=== PATIENT | male | born 1965 | race Caucasian/White ===

== ENCOUNTER 2016-12-10 21:43 | Inpatient (IN) | payer OTHER ==
[~2016-12-10] VITALS: Ht 180.3 cm; Wt 97.5 kg
[~2016-12-10 21:43] MED LIST: AMLODIPINE BESY10 M1 PO; DEPAKENE250 MG PO; DIOVAN320 M1 PO; DIVALPROEX SOD500 M3 PO; FOLIC ACID1 M1 PO; GABAPENTIN400 M2 PO; HYDROCHLOROTHIA50 M1 PO; METFORMIN HCL850 M1 PO; METOPROLOL SUCC50 M2 PO; OMEPRAZOLE20 M2 PO; ONE DAILY MULT1 EAC2 PO; RISPERDAL1 M1 PO; TRAZODONE HCL100 M1 PO; VALPROIC A250 MG/53 PO; VITAMIN B-1100 MG PO
--- NOTE | 2016-12-10 21:54 | ED GENERAL ADULT ---
History of Present Illness General Chief Complaint: ETOH/Drug Related Complaint Stated Complaint: WANTS DETOX, 7 HRS SINCE LAST DRINK ?SIZURE Source: patient, old records Exam Limitations: no limitations Vital Signs & Intake/Output Vital Signs & Intake/Output Vital Signs Date Time Temp Pulse Resp B/P B/P Pulse O2 O2 Flow FiO2 Mean Ox Delivery Rate 12/11 1717 94 140/82 12/11 1434 98.2 92 20 132/70 94 Room Air 12/11 1322 97.4 96 16 118/70 12/11 1322 97.4 86 16 118/70 98 Room Air 12/11 1148 97.1 74 18 129/78 98 Room Air 12/11 1147 97.1 74 18 129/78 12/11 1022 97.9 62 18 122/70 98 Room Air 12/11 1021 97.9 64 16 122/70 12/11 0922 98.3 66 18 125/87 12/11 0922 98.3 66 18 125/87 98 Room Air 12/11 0807 97.9 82 16 123/80 98 Room Air 12/11 0805 97.9 82 16 123/80 12/11 0717 98.0 78 18 119/90 98 Room Air 12/11 0716 98.1 78 16 119/90 12/11 0523 96.8 60 16 110/67 12/11 0523 96.8 60 16 110/67 97 Room Air 12/11 0325 98.0 63 16 121/78 12/11 0325 98.0 63 16 121/78 98 Room Air 12/11 0125 98.2 81 18 111/73 12/11 0125 98.2 81 18 111/73 96 Room Air 12/10 2315 98.0 74 19 112/65 12/10 2306 98.0 74 19 112/65 95 Room Air 12/10 2232 97.9 77 18 126/74 ED Intake and Output 12/11 0000 12/10 1200 Intake Total Output Total Balance Patient 215 lb Weight Weight Reported by Patient Measurement Method Triage Note: PT TO ED REQUESTING ETOH DETOX AND COCAINE. 'I GOTTA STOP EVERYTHING" STATES WAS SOBER FOR 9 1/2 MONTHS, RELAPSED 2 WEEKS AGO. "I DRINK AT LEAST 2-3 PINTS OF VODKA A DAY" ADMITS TO SMOKING COCAINE TODAY. 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 PMH OF ETOH WITHDRAWAL SEIZURES "I THINK I HAD A SEIZURE AT HOME" Triage Nurses Notes Reviewed? yes HPI: Patient presents to the emergency department requesting detox from alcohol. Patient states that he was sober for 9 and half months before he relapsed 2 weeks ago. Patient has been drinking a fifth a day. Patient has a history of a wall withdrawal seizures. Patient is unsure if he had a seizure earlier today. Patient states that he was drinking but then woke up on the living room floor and he had bit his lip. Patient's last drink was approximately 7 hours ago. Patient also used cocaine this afternoon. Patient states that he feels very jittery. He feels slightly nauseous. He denies any chest pain or shortness of breath. He denies any suicidal or homicidal ideations. (TATIANNA HERNÁNDEZ,CELESTE Becker) Allergies Coded Allergies: haloperidol (From HALDOL) (Severe, ANGIODEMA 12/10/16) olanzapine (From ZYPREXA) (Severe, ANGIODEMA 12/10/16) Reconcile Medications Amlodipine Besylate 10 MG TABLET 1 TAB PO DAILY HEART/BP (Reported) Hydrochlorothiazide 50 MG TABLET 1 TAB PO DAILY BP (Reported) Metformin HCl 850 MG TABLET 1 TAB PO DAILY DIABETES (Reported) Metoprolol Succinate 50 MG TAB.ER.24H 1 TAB PO DAILY BP (Reported) Valproic Acid (Depakene) 250 MG CAPSULE 3 TAB PO TID mental health Valsartan (Diovan) 320 MG TABLET 1 TAB PO DAILY BP (Reported) (ALFONSO HERNÁNDEZ,SAEED) Past History Travel History Traveled to [place] past 21 day No Medical History Any Pertinent Medical History? 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 No (TATIANNA HERNÁNDEZ,CELESTE Becker) Review of Systems Review of Systems Constitutional: Reports: see HPI. EENTM: Reports: no symptoms. Respiratory: Reports: no symptoms. Cardiovascular: Reports: no symptoms. GI: Reports: see HPI. Genitourinary: Reports: no symptoms. Musculoskeletal: Reports: see HPI. Skin: Reports: no symptoms. Neurological/Psychological: Reports: no symptoms. Hematologic/Endocrine: Reports: no symptoms. Immunologic/Allergic: Reports: no symptoms. All Other Systems: Reviewed and Negative (TATIANNA HERNÁNDEZ,CELESTE Becker) Physical Exam Physical Exam General Appearance: well developed/nourished, alert, awake, anxious, moderate distress Head: atraumatic, normal appearance Eyes: Bilateral: PERRL, EOMI. Ears, Nose, Throat: normal pharynx, normal ENT inspection, hearing grossly normal Neck: normal inspection, supple, full range of motion Respiratory: normal breath sounds, chest non-tender, no respiratory distress, lungs clear Cardiovascular: regular rate/rhythm, normal peripheral pulses Gastrointestinal: normal bowel sounds, soft, non-tender Back: normal inspection, normal range of motion Extremities: normal inspection, normal capillary refill, normal range of motion, no edema Neurologic/Psych: no motor/sensory deficits, awake, alert, oriented x 3, normal gait, normal mood/affect Skin: intact, normal color, ecchymosis Lymphatic: no anterior cervical deborah Core Measures ACS in differential dx? No CVA/TIA Diagnosis: No Severe Sepsis Present: No Septic Shock Present: No (TATIANNA HERNÁNDEZ,CELESTE Becker) Progress Differential Diagnoses I considered the following diagnoses in my evaluation of the patient: [Alcohol withdrawal, alcohol dependency] Plan of Care: Orders Procedure Date/time Status PHOSPHORUS 12/12 06 Active MAGNESIUM 12/12 06 Active HEPATIC FUNCTION PANEL 12/12 06 Active BASIC ELECTROLYTES PLUS BUN&CR 12/12 599 Active Heart Healthy Diet 12/11 D Active Regular Diet 12/11 B Complete Teach/Educate 12/11 143 Active Pain Treatment and Response 12/11 143 Active Nutritional Intake, Monitor 12/11 1436 Active Isolation 12/11 1436 Active Patient Care Conference 12/11 1436 Active Activity/Ambulation 12/11 1436 Active TROPONIN LEVEL 12/11 1259 Complete EKG 12/11 1259 Active FingerStick- Glucose 12/11 1244 Active Pathway - chart 12/11 1218 Active Pathway - chart 12/11 1216 Active EKG 12/11 1145 Active Patient Data 12/11 1142 Active Misc Message 12/11 1136 Active ED Holding Orders 12/11 1136 Active Admit to inpatient 12/11 1136 Active Vital Signs 12/11 1136 Active Code Status 12/11 1136 Active Add-on Test (ER Only) 12/11 0911 Active House Staff 12/11 UNK Active VTE Mechanical Prophylaxis 12/11 UNK Active Seizure Precautions 12/11 UNK Active Precautions 12/11 UNK Active SOCIAL WORK CONSULT 12/11 UNK Active Add-on Test (ER Only) 12/10 2330 Active Intake & Output 12/10 2212 Active PROLACTIN 12/10 220 Complete LIPASE 12/10 2204 Complete DEPAKOTE LEVEL 12/10 2204 Complete AMYLASE 12/10 2204 Complete Current Medications Sig/Joaquin Start time Last Medication Dose Stop Time Status Admin Amlodipine Besylate 10 MG DAILY 12/12 1000 AC (Norvasc) Enoxaparin Sodium 40 MG DAILY 12/12 1000 AC (Lovenox) Hydrochlorothiazide 50 MG DAILY 12/12 1000 AC (Hydrodiuril) Losartan Potassium 100 MG DAILY 12/12 1000 AC (Cozaar) Insulin Aspart 0 TIDAC 12/11 1700 AC 12/11 (NovoLOG) 1726 Divalproex Sodium 750 MG TID 12/11 1600 AC 12/11 (Depakote) 2124 Metoprolol Succinate 50 MG DAILY 12/11 1545 AC 12/11 (Toprol Xl) 1717 Sodium Chloride 1,000 ML Q13H 12/11 1445 AC 12/11 (Normal Saline 0.9%) 12/12 0344 1530 Ketorolac 15 MG Q8 12/11 1400 CAN Tromethamine (Toradol) Morphine Sulfate 2 MG Q8 PRN 12/11 1400 AC 12/11 (Morphine) 2140 Pantoprazole Sodium 40 MG DAILY 12/11 1256 AC 12/11 (Protonix) 1328 Acetaminophen 650 MG Q6P PRN 12/11 1230 AC (Tylenol) Ondansetron HCl 4 MG Q6P PRN 12/11 1230 AC 12/11 (Zofran) 2124 Cyanocobalamin/ 1 BAG ONCE ONE 12/11 1215 CAN Thiamine/Pyridoxine 12/11 2013 (Vitamin in I.V.) Sodium Chloride 1,000 ML (Normal Saline 0.9%) Lorazepam See Dose Q1P PRN 12/11 1215 AC (Ativan) Insts (1) Lorazepam 2 MG Q6H 12/11 1215 AC 12/11 (Ativan) 1831 Folic Acid 1 MG DAILY 12/11 1000 AC 12/11 (Folic Acid) 12/13 1001 1009 Multivitamins 1 TAB DAILY 12/11 1000 AC 12/11 (Theragran Vitamins) 1009 Thiamine HCl 100 MG DAILY 12/11 1000 AC 12/11 (Vitamin B1) 12/13 1001 1009 Dose Instructions: (1)Lorazepam (Ativan): See admin criteria Laboratory Tests 12/11/16 1319: Troponin I < 0.01 12/11/16 0125: Urine Opiates Screen < 100.00, Methadone Screen < 40, Barbiturate Screen < 60, Ur Phencyclidine Scrn < 6.00, Amphetamines Screen < 100, U Benzodiazepines Scrn < 85, Urine Cocaine Screen > 1000 H, Urine Cannabis Screen 5.90, Urine Color YEL, Urine Clarity CLEAR, Urine pH 6.0, Ur Specific Straughn 1.015, Urine Protein NEG, Urine Ketones NEG, Urine Nitrite NEG, Urine Bilirubin NEG, Urine Urobilinogen 0.2, Ur Leukocyte Esterase NEG, Ur Microscopic EXAM NOT REQUIRED, Urine Hemoglobin NEG, Urine Glucose 250 H 8:20 AM PATIENT and asked me by Dr. Milner. Pending case management evaluation. 11:33 AM PATIENT APPROVED FOR HUSKY DETOX. (DENISE HERNÁNDEZ,ROQUE) Initial ED EKG: NSR, no ST T wave changes Prior EKG: unchanged Hand-Off Endorsed To: SAEED HAMILTON MD Endorsed Time: 0100 Pending: consult (CASE MANAGEMENT) (TATIANNA HERNÁNDEZ,CELESTE Becker) Hand-Off Endorsed To: ROQUE WALKER MD Endorsed Time: 07 Pending: consult (SAEED HAMILTON MD) Departure Departure Disposition: STILL A PATIENT Condition: Stable Clinical Impression Primary Impression: Alcohol dependency Referrals: UNKNOWN (PCP/Family) Departure Forms: Customer Survey General Discharge Information (TATIANNA HERNÁNDEZ,CELESTE Bekcer) Departure Time of Disposition: 1133 Admission Note Spoke With: CAPRICE MERCHANT MD Documentation of Exam: Documentation of any treatments & extenuating circumstances including Concerns Regarding Discharge (functional status, medication knowledge or non-compliance, living conditions, etc.) that warrant an admission rather than observation: [ CIWA DETOX PROTOCOL, ATIVAN TAPER, MONITOR I/O, SEIZURE PRECAUTIONS, CRISIS CONSULTATION] (DENISE HERNÁNDEZ,ROQUE) Critical Care Note Critical Care Note Critical Care Time: non-applicable (TATIANNA HERNÁNDEZ,CELESTE Becker)
[2016-12-10 22:15] VITALS: BP 126/74
[2016-12-10 22:21] LABS: ABSOLUTE BASOPHIL COUNT 0 /CUMM (0.0-0.2); ABSOLUTE EOSINOPHIL COUNT 0 /CUMM (0.0-0.7); ABSOLUTE GRANULOCYTE CT 3.9 /CUMM (1.4-6.5); ABSOLUTE LYMPH COUNT 1.3 /CUMM (1.2-3.4); ABSOLUTE MONOCYTE COUNT 0.3 /CUMM (0.10-0.60); BASOPHIL % 0.4 % (0.0-2.0); EOSINOPHIL % 0.4 % (0-5); GRANULOCYTE % 69.8 % (42.2-75.2); HEMATOCRIT 46.7 % (42-52); MEAN CORPUSCULAR HGB 30.3 PG (27.0-31.0); MEAN CORPUSCULAR HGB CONC 34.6 G/DL (33.0-37.0); MEAN CORPUSCULAR VOLUME 87.4 FL (80.0-94.0); MEAN PLATELET VOLUME 8.2 FL (7.4-10.4); PLATELET COUNT 212 /CUMM (130-400); RED BLOOD CELL CT 5.34 /CUMM (4.70-6.10); WHITE BLOOD CELL COUNT 5.6 /CUMM (4.8-10.8)
[2016-12-10 23:15] VITALS: BP 112/65
[2016-12-11] VITALS (16 sets, daily range): BP systolic 110–142; BP diastolic 67–90
--- NOTE | 2016-12-11 12:02 | History & Physical ---
[facility] 12/11/16 1202: General Information and HPI MD Statement: I have seen and personally examined JB LANDIN and documented this H&P. The patient is a 51 year old M who presented with a patient stated chief complaint of [requesting alcohol detox]. Source of Information: patient, old records Exam Limitations: no limitations History of Present Illness: Patient is 50-year-old man with past medical history of alcohol abuse, alcohol withdrawal seizures, pancreatitis, hypertension, type 2 diabetes, bipolar disorder presented to emergency department requesting alcohol detox. Patient reports that he remains sober since his last discharge from [facility] at 05/07/16 until 3 weeks ago when he started to drink alcohol again, he drinks a fifth of vodka a day, and he also smoke cocaine and bats a about 4 times in the last 3 weeks. Patient reports having seizure yesterday, his last drink was yesterday at 3 afternoon, he didn't remember exactly the seizure episode but he mentioned details, hewas on the couch, he rolled down on the floor he bite his lip, he also thinks he lost his consciousness but he didn't know for how long, seizure episode is unwitnessed, he lived at home with his girlfriend who was not there during the episodes. Patient reports colicky epigastric pain, about 8/10 in severity, no radiation, constant, he also complained of tightness pain around the chest, he noticed palpitations today in between the doses of Ativan given at ED, chest tightness is constant, he feels nauseous but no vomiting, and he reports that he feels anxious ,shaky, short of breath and had also frontal pressure headache. Patient denies visual or tactile hallucinations. Review of system was negative for fever or chills, and there is no change in urinary or bowel habit Allergies/Medications Allergies: Coded Allergies: haloperidol (From HALDOL) (Severe, ANGIODEMA 12/10/16) olanzapine (From ZYPREXA) (Severe, ANGIODEMA 12/10/16) Home Med list Amlodipine Besylate 10 MG TABLET 1 TAB PO DAILY HEART/BP (Reported) Hydrochlorothiazide 50 MG TABLET 1 TAB PO DAILY BP (Reported) Metformin HCl 850 MG TABLET 1 TAB PO DAILY DIABETES (Reported) Metoprolol Succinate 50 MG TAB.ER.24H 1 TAB PO DAILY BP (Reported) Valproic Acid (Depakene) 250 MG CAPSULE 3 TAB PO TID mental health Valsartan (Diovan) 320 MG TABLET 1 TAB PO DAILY BP (Reported) Past History Travel History Traveled to [place] past 21 day No Medical History Neurological: seizure, (ALCOHOL WITHDRAWAL) EENT: 04/07/2016: trached Cardiovascular: hypertension, 02/2016: Hx 11 beat V tach Respiratory: failure to wean from vebt Gastrointestinal: GERD, pancreatitis Hepatic: cholelithiasis Renal: resolved PEPE Musculoskeletal: NONE Psychiatric: alcohol dependence, anxiety, bipolar disease, substance abuse ( cocaine/EtOH) Endocrine: diabetes Blood Disorders: NONE Cancer(s): NONE 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 unknown Services at Home: None Primary Language: Congolese ETOH Use: alcoholic Illicit Drug Use: cocaine Living Will? unknown Power of Spindle Maker/HCP? unknown Functional Ability ADLs Unknown: dressing, eating, toileting, bathing. 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 Review of Systems Review of Systems Constitutional: Reports: chills. EENTM: Reports: no symptoms. Cardiovascular: Reports: see HPI. Respiratory: Reports: short of breath. GI: Reports: abdominal pain, nausea. Genitourinary: Reports: no symptoms. Musculoskeletal: Reports: no symptoms. Skin: Reports: no symptoms. Neurological/Psychological: Reports: anxiety, headache. Hematologic/Endocrine: Reports: no symptoms. All Other Systems: Reviewed and Negative Exam & Diagnostic Data Last 24 Hrs of Vital Signs/I&O Vital Signs Date Time Temp Pulse Resp B/P B/P Pulse O2 O2 Flow FiO2 Mean Ox Delivery Rate 12/11 1148 97.1 74 18 129/78 98 Room Air 12/11 1147 97.1 74 18 129/78 12/11 1022 97.9 62 18 122/70 98 Room Air 12/11 1021 97.9 64 16 122/70 12/11 0922 98.3 66 18 125/87 12/11 0922 98.3 66 18 125/87 98 Room Air 12/11 0807 97.9 82 16 123/80 98 Room Air 12/11 0805 97.9 82 16 123/80 12/11 0717 98.0 78 18 119/90 98 Room Air 12/11 0716 98.1 78 16 119/90 12/11 0523 96.8 60 16 110/67 12/11 0523 96.8 60 16 110/67 97 Room Air 12/11 0325 98.0 63 16 121/78 12/11 0325 98.0 63 16 121/78 98 Room Air 12/11 0125 98.2 81 18 111/73 12/11 0125 98.2 81 18 111/73 96 Room Air 12/10 2315 98.0 74 19 112/65 12/10 2306 98.0 74 19 112/65 95 Room Air 12/10 2232 97.9 77 18 126/74 12/10 2215 97.9 77 18 126/74 12/10 2215 94 Room Air 12/10 2212 77 18 126/74 94 Room Air 12/10 2147 97.9 87 18 132/87 Room Air Intake & Output 12/11 1600 12/11 0800 12/11 0000 Intake Total Output Total 725 Balance -725 Output, Urine 725 Patient 215 lb Weight Weight Reported by Patient Measurement Method Physical Exam General Appearance Alert, Oriented X3, Cooperative, Mild Distress Skin No Rashes, No Breakdown, No Significant Lesion HEENT Atraumatic, PERRLA, EOMI, Mucous Membr. moist/pink Neck Supple, No JVD Lymphatic Axillary nl, Cervical nl Cardiovascular Normal S1, Normal S2, No Murmurs Lungs Clear to Auscultation, Normal Air Movement Abdomen Normal Bowel Sounds, Soft, Tenderness over epigastric region Neurological Normal Speech, Strength at 5/5 X4 Ext, Normal Tone, Sensation Intact Extremities No Edema, Normal Pulses Last 24 Hrs of Labs/Moi: Laboratory Tests 12/11/16 0125: Urine Opiates Screen < 100.00, Methadone Screen < 40, Barbiturate Screen < 60, Ur Phencyclidine Scrn < 6.00, Amphetamines Screen < 100, U Benzodiazepines Scrn < 85, Urine Cocaine Screen > 1000 H, Urine Cannabis Screen 5.90, Urine Color YEL, Urine Clarity CLEAR, Urine pH 6.0, Ur Specific [place]ron 1.015, Urine Protein NEG, Urine Ketones NEG, Urine Nitrite NEG, Urine Bilirubin NEG, Urine Urobilinogen 0.2, Ur Leukocyte Esterase NEG, Ur Microscopic EXAM NOT REQUIRED, Urine Hemoglobin NEG, Urine Glucose 250 H 12/10/16 2205: Anion Gap 19 H, Estimated GFR > 60, BUN/Creatinine Ratio 14.4, Glucose 239 H, Calcium 9.3, Total Bilirubin 0.5, AST 32, ALT 72, Alkaline Phosphatase 75, Troponin I < 0.01, Total Protein 7.0, Albumin 4.4, Globulin 2.6, Albumin/ Globulin Ratio 1.7, Amylase 47, Lipase 93, Prolactin 6.4, CBC w Diff NO MAN DIFF REQ, RBC 5.34, MCV 87.4, MCH 30.3, RDW 13.0, MPV 8.2, Gran % 69.8, Lymphocytes % 23.4, Monocytes % 6.0, Eosinophils % 0.4, Basophils % 0.4, Absolute Granulocytes 3.9, Absolute Lymphocytes 1.3, Absolute Monocytes 0.3, Absolute Eosinophils 0, Absolute Basophils 0, PUBS MCHC 34.6, Valproic Acid 38.5 L, Serum Alcohol 33.0 Diagnostic Data EKG Results Sinus rhythm, 88 T-wave inversion in the inferior leads which is not change from the previous EKG Assessment/Plan Assessment: Patient is 50-year-old man with past medical history of alcohol abuse, alcohol withdrawal seizures, pancreatitis, hypertension, type 2 diabetes, bipolar disorder admitted to general floor for alcohol detox Plan: * Will admitt the patient to for alcohol withdrawal/seizure * chest tightness: will order troponin and EKG to rule out ACS. * Seizure/ aspiration precautions, * CIWA, IV ativan per CIWA, * ativan 2mg PO Q6, * banana bag followed by maintenance fluids, * IV PPI, * Social work consult. * Insulin sliding scale, fingerstick TIDAC/HS, * Would hold beta kwesi for now given patient is a cocaine user. Pain management pathway. DVT ppx: Lovenox SC. Full code. As Ranked By This Provider Problem List: 1. Alcohol withdrawal 2. Alcohol withdrawal seizure 3. Bipolar disorder Core Measures/Miscellaneous Acute Coronary Syndrome ACS Diagnosis: No Cerebrovascular Accident CVA/TIA Diagnosis: No Congestive Heart Failure CHF Diagnosis: No Venous Thromboembolism VTE Risk Factors: Acute medical illness, Age > 40 No Mech VTE prophylaxis d/t: No contraindications No VTE Pharm Prophylaxis d/t: No contraindications VTE Diagnosis: No VTE Type: NONE VTE Confirmed by (Test): NONE Severe Sepsis Severe Sepsis Present: No Septic Shock Septic Shock Present: No Miscellaneous Documentation Attending Case Discussed With: MAYUR HERNÁNDEZ,CAPRICE Primary Care Physician: UNKNOWN Patient sees these Specialists - Level of Patient Care: General Medicine KOMAL OSBORNE 12/12/16 1122: Attending MD Review Statement Attending Statement Attending MD Statement: examined this patient, discuss w/resident/PA/INCOMING INSPECTOR, agreed w/resident/PA/INCOMING INSPECTOR, discussed with family, reviewed EMR data (avail), discussed with nursing, discussed with case mgmt, reviewed images, amended to note
--- NOTE | 2016-12-11 14:45 | Cons- Psychiatry ---
Psychiatric Consult Date of Consult: 12/11/16 Reason for Consult: Alcohol withdrawal and bipolar disorder Ordered by Dr.Khandelwal Dr. Renteria attending History of Present Illness: Identifying Info: 51-year-old male presents to [facility] emergency department on 12/10/2016 with alcohol withdrawal. Admitted to medicine due to reported seizure at home. CC: "Workup bad then I stopped going to meetings and started drinking." HPI: The patient reports that approximately 2-1/2 weeks ago he started drinking again after a 9-1/2 month period of sobriety following his last detox hospitalization at [facility]. During that hospitalization the patient developed delirium and required IV Ativan drip. At that time he was hospitalized for over a month and a trach was placed. Additionally during that stay the patient had reported adverse reactions to Haldol and Zyprexa as well as suspected akthesia due to risperidone. He's been consuming approximately 750 mL of liquor daily. He attributes his relapse to stress at work which led to attending fewer AA meetings which subsequently led to resuming consumption of alcohol. He has a history of bipolar disorder versus schizoaffective disorder but he is not currently seeing a psych specific director surgical. His primary care physician has been treating him with Depakote. He states he would like to transition to twice daily Depakote at some point during hospitalization. He reports that he had a [facility] IOP intake appointment on 12/09/2016 which she did not attend due to alcohol use. PMH: Please see the H&P for a complete listing Pancreatitis, hypertension, type 2 diabetes Past Psych History: Bipolar disorder versus schizoaffective disorder Previously treated at [facility] in [place] PCP current prescribes his Depakote Family Psych History: Not obtained Substance History Alcohol use disorder Cocaine use disorder -Treatment History of attending AA Family Substance History: Not obtained Social: . Has a daughter that lives locally. Resides in [place]. Self-employed Abuse/Trauma: Not obtained Current Home Psychotropic Medications: Depakote 750 mg 3 times a day Current Hospital Psychotropic Medications: Med Lorazepam IV Q1P PRN 12/11/16 1215 Lorazepam 2 MG PO Q6H 12/11/16 1215 Allergies: Coded Allergies: haloperidol (From HALDOL) (Severe, ANGIODEMA 12/10/16) olanzapine (From ZYPREXA) (Severe, ANGIODEMA 12/10/16) Current Medications: Current Medications Sig/Joaquin Start time Last Medication Dose Route Stop Time Status Admin Acetaminophen 650 MG Q6P PRN 12/11 1230 AC PO Amlodipine Besylate 10 MG DAILY 12/12 1000 AC PO Clonidine 0 .STK-MED ONE 12/10 2228 DC PO Clonidine 0.1 MG ONCE ONE 12/10 2215 DC 12/10 PO 12/11 2215 2232 Cyanocobalamin/ 1 BAG ONCE ONE 12/11 1215 CAN Thiamine/Pyridoxine IV 12/11 2014 Sodium Chloride 1,000 ML Cyanocobalamin/ 1 BAG ONCE ONE 12/10 2215 DC 12/10 Thiamine/Pyridoxine IV 12/11 0614 223 Dextrose/Water 1,000 ML Divalproex Sodium 750 MG TID 12/11 1600 AC PO Enoxaparin Sodium 40 MG DAILY 12/12 1000 AC SC Folic Acid 0 .STK-MED ONE 12/11 1012 DC PO Folic Acid 1 MG DAILY 12/11 1000 AC 12/11 PO 12/13 1001 1009 Gabapentin 0 .STK-MED ONE 12/104 DC PO Gabapentin 300 MG ONCE ONE 12/10 221 DC 12/10 PO 12/11 2215 2242 Hydrochlorothiazide 50 MG DAILY 12/12 1000 AC PO Hydroxyzine HCl 0 .STK-MED ONE 12/11 2227 DC PO Hydroxyzine HCl 50 MG ONCE ONE 12/10 2214 DC 12/10 PO 12/11 2215 223 Insulin Aspart 0 TIDAC 12/11 1700 AC SC Ketorolac 15 MG Q8 12/11 1400 CAN Tromethamine IV Lorazepam 1 MG Q12H 12/13 0000 DC PO 12/13 1201 Lorazepam 1.5 MG Q6 12/12 0600 DC PO 12/12 1801 Lorazepam See Dose Q1P PRN 12/11 1215 AC Insts (1) IV Lorazepam 2 MG Q6H 12/11 1215 AC PO Lorazepam 0 .STK-MED ONE 12/11 1208 DC PO Lorazepam 0 .STK-MED ONE 12/11 0820 DC PO Lorazepam 2 MG ONCE ONE 12/11 0815 DC PO 12/11 0816 Lorazepam 2 MG Q6 12/11 0812 DC 12/11 PO 12/12 0001 1209 Losartan Potassium 100 MG DAILY 12/12 1000 AC PO Morphine Sulfate 2 MG Q8 PRN 12/11 1400 AC IV Multivitamins 0 .STK-MED ONE 12/11 1012 DC PO Multivitamins 1 TAB DAILY 12/11 1000 AC 12/11 PO 1009 Ondansetron HCl 4 MG Q6P PRN 12/11 1230 AC IV Pantoprazole Sodium 0 .STK-MED ONE 12/11 1333 DC IV Pantoprazole Sodium 40 MG DAILY 12/11 1256 AC 12/11 IV 1328 Sodium Chloride 1,000 ML Q13H 12/11 1445 AC IV 12/12 0344 Thiamine HCl 0 .STK-MED ONE 12/11 1012 DC PO Thiamine HCl 100 MG DAILY 12/11 1000 AC 12/11 PO 12/13 1001 1009 Thiamine HCl 0 .STK-MED ONE 12/10 2228 DC .ROUTE Dose Instructions: (1)Lorazepam: See admin criteria Past History Past Medical History Neurological: seizure, (ALCOHOL WITHDRAWAL) EENT: 04/07/2016: trached Cardiovascular: hypertension, 02/2016: Hx 11 beat V tach Respiratory: failure to wean from vebt Gastrointestinal: GERD, pancreatitis Hepatic: cholelithiasis Renal: resolved PEPE Musculoskeletal: NONE Psychiatric: alcohol dependence, anxiety, bipolar disease, substance abuse ( cocaine/EtOH) Endocrine: diabetes Blood Disorders: NONE Cancer(s): NONE OIL EXTRACTOR/Reproductive: NONE Past Surgical History Surgical History: non-contributory (04/07/2016: Trached), no hx available from pt Psychosocial History Strengths/Capabilities: Treatment motivated Physical Limitations (Interventions): Current withdrawal syndrome Psychiatric Treatment History Psych Treatment Psychiatric Treatment Yes Diagnosis: Bipolar Disorder vs Schizoaffective Disorder, Bipolar type Alcohol Use Disorder Risk Factors: SA/MH hospitalized, substance abuse, lives alone, male Substance Use/Abuse History Drug Use/Abuse Substances Used/Abused Yes Substance Abuse Treatment Substance Abuse Treatment Past Substance Abuse [place] Yes Assessment/Plan Mental Status Mental Status Exam: Mental Status Exam Presentation/Appearance: Cooperative with evaluation. Hospital garb. Psychomotor agitation noted. Tremulous and diaphoretic Orientation: x4 Sensorium: Awake and alert Eye contact: Appropriate Affect: Somewhat constricted Mood: "Anxious... I can't sit still" Depression: Denies Anxiety: Endorses Thought Content: - Endorses tactile hallucinations - Denies SI/HI, AH/VH, PI. States and also believes they will not kill themselves. - Denies Hopeless/Helpless Thoughts Thought Process: Endorses racing thoughts Associations: Appropriate Speech: WNL Judgment: Fair Insight: Fair Cognition: Memory: Grossly intact Attention/Concentration: Grossly intact Fund of Knowledge: Did not assess Abstractions: Did not assess MMSE: Did not assess Brief ROS Gait: Steady Sleep: Poor Appetite: Adequate Energy: High IADLs/ADLs: Independent Lab Results: Laboratory Tests 12/11/16 1319: Troponin I < 0.01 12/11/16 0125: Urine Opiates Screen < 100.00, Methadone Screen < 40, Barbiturate Screen < 60, Ur Phencyclidine Scrn < 6.00, Amphetamines Screen < 100, U Benzodiazepines Scrn < 85, Urine Cocaine Screen > 1000 H, Urine Cannabis Screen 5.90, Urine Color YEL, Urine Clarity CLEAR, Urine pH 6.0, Ur Specific [place] 1.015, Urine Protein NEG, Urine Ketones NEG, Urine Nitrite NEG, Urine Bilirubin NEG, Urine Urobilinogen 0.2, Ur Leukocyte Esterase NEG, Ur Microscopic EXAM NOT REQUIRED, Urine Hemoglobin NEG, Urine Glucose 250 H 12/10/16 2205: Anion Gap 19 H, Estimated GFR > 60, BUN/Creatinine Ratio 14.4, Glucose 239 H, Calcium 9.3, Total Bilirubin 0.5, AST 32, ALT 72, Alkaline Phosphatase 75, Troponin I < 0.01, Total Protein 7.0, Albumin 4.4, Globulin 2.6, Albumin/ Globulin Ratio 1.7, Amylase 47, Lipase 93, Prolactin 6.4, CBC w Diff NO MAN DIFF REQ, RBC 5.34, MCV 87.4, MCH 30.3, RDW 13.0, MPV 8.2, Gran % 69.8, Lymphocytes % 23.4, Monocytes % 6.0, Eosinophils % 0.4, Basophils % 0.4, Absolute Granulocytes 3.9, Absolute Lymphocytes 1.3, Absolute Monocytes 0.3, Absolute Eosinophils 0, Absolute Basophils 0, PUBS MCHC 34.6, Valproic Acid 38.5 L, Serum Alcohol 33.0 Diffential Diagnosis: Bipolar Disorder vs Schizoaffective Disorder, Bipolar type Alcohol Use Disorder Cocaine use disorder Impression: 51-year-old male presents the context of alcohol withdrawal. He reports he started drinking once stopped attending AA meetings. He endorses manic symptoms including racing thoughts, decreased need for sleep, and distractibility. Of note his current Depakote level is low. On last hospitalization he responded well to 750 mg 3 times a day and he reports this is what he continues to take in the community. Given current symptoms and low VPA level he may require higher dosing however it would be prudent to medicate appropriately and draw level prior to increase. Provisional Treatment Plan: 1. Continue CIWA, Ativan, and vitamin supplementation. 2. Please order Depakote 750mg 3 times a day with plan to transition to DR or ER formulation if patient alcohol detox remains uncomplicated. 3. Please order VPA level to be drawn on the morning of 12/15 prior to taking first Depakote dose of the day. 4. If patient experiences hallucinosis or agitation will be prudent to medicate with Ativan due to previous poor responses to antipsychotic medication. If IM antipsychotic is required, he has no known adverse reaction to Thorazine but it should be used with caution. Thank you for including psychiatry in this case we will continue to follow. A total of 60 minutes was spent with the patient with more than 50% of the time spent in counseling and/or coordination of care.
[2016-12-12 07:11] VITALS: BP 122/80
[2016-12-12 08:00] VITALS: BP 122/80
--- NOTE | 2016-12-12 08:44 | PN- Housestaff ---
SANTOSH PIERCE 12/12/16 0844: Subjective Follow-up For: Alcohol detoxification Complaints: no complaints Subjective: Patient was seen and examined this morning. He is alert, awake and oriented to time place and person. no overnight events reported. He denies any chest pain, racing of heart. He denies any nausea,, abdominal pain. He denies any withdrawal seizures, agitation, anxiety. However he reports some shaking tremors. Denies any hallucinations. Vitals stable afebrile, heart rate 74, blood pressure 118/70, saturating at room air. Review of Systems Constitutional: Denies: chills, diaphoresis, fever, malaise. Objective Last 24 Hrs of Vital Signs/I&O Vital Signs Date Time Temp Pulse Resp B/P B/P Pulse O2 O2 Flow FiO2 Mean Ox Delivery Rate 12/12 0836 74 118/70 12/12 0836 74 118/70 12/12 0836 74 118/70 12/12 0800 97.8 66 20 122/80 12/12 0711 97.8 66 20 122/80 94 Room Air 12/11 2246 98.1 83 20 142/80 95 Room Air 12/11 2200 98.2 94 18 140/82 12/11 2000 98.2 94 18 140/82 12/11 1830 98.2 94 18 140/82 93 Room Air 12/11 1800 98.2 92 20 132/70 12/11 1717 94 140/82 12/11 1600 98.2 92 20 132/70 12/11 1434 98.2 92 20 132/70 94 Room Air Intake & Output 12/12 1600 12/12 0800 12/12 0000 Intake Total 1170 500 Output Total 775 Balance 1170 -275 Intake, IV 450 Intake, Oral 720 500 Output, Urine 775 Physical Exam General Appearance: Alert, Oriented X3, Cooperative, No Acute Distress Skin: No Rashes, No Breakdown HEENT: Atraumatic, PERRLA, EOMI, Mucous Membr. moist/pink Neck: Supple, No JVD Lymphatic: Cervical nl Cardiovascular: Normal S1, Normal S2 Lungs: Normal Air Movement Abdomen: Normal Bowel Sounds, Soft, No Tenderness Extremities: No Clubbing, No Cyanosis, No Edema Vascular: Pulses Symmetrical Current Medications: Current Medications Sig/Joaquin Start time Last Medication Dose Route Stop Time Status Admin Acetaminophen 650 MG .STK-MED ONE 12/12 0009 DC PO 12/12 0010 Acetaminophen 650 MG Q6P PRN 12/11 1230 AC 12/12 PO 0011 Amlodipine Besylate 10 MG DAILY 12/12 1000 AC 12/12 PO 0836 Cyanocobalamin/ 1 BAG ONCE ONE 12/11 1215 CAN Thiamine/Pyridoxine IV 12/11 2013 Sodium Chloride 1,000 ML Divalproex Sodium 750 MG TID 12/11 1600 AC 12/12 PO 0835 Enoxaparin Sodium 40 MG DAILY 12/12 1000 AC 12/12 SC 0837 Folic Acid 1 MG DAILY 12/11 1000 AC 12/12 PO 12/13 1001 0836 Hydrochlorothiazide 50 MG DAILY 12/12 1000 AC 12/12 PO 0836 Insulin Aspart 0 TIDAC 12/11 1700 AC 12/11 SC 1726 Lorazepam 1 MG Q12H 12/13 0000 DC PO 12/13 1201 Lorazepam 1.5 MG Q6 12/12 0600 DC PO 12/12 1801 Lorazepam See Dose Q1P PRN 12/11 1215 AC Insts (1) IV Lorazepam 2 MG Q6H 12/11 1215 AC 12/12 PO 1209 Lorazepam 2 MG Q6 12/11 0812 DC 12/11 PO 12/12 0001 1209 Losartan Potassium 100 MG DAILY 12/12 1000 AC 12/12 PO 0836 Metoprolol Succinate 50 MG DAILY 12/11 1545 AC 12/12 PO 0836 Morphine Sulfate 2 MG Q8 PRN 12/11 1400 AC 12/12 IV 0607 Multivitamins 1 TAB DAILY 12/11 1000 AC 12/12 PO 0836 Ondansetron HCl 4 MG Q6P PRN 12/11 1230 AC 12/11 IV 2124 Pantoprazole Sodium 40 MG DAILY 12/11 1256 AC 12/12 IV 0835 Sodium Chloride 1,000 ML Q13H 12/11 1445 DC 12/11 IV 12/12 0344 1530 Thiamine HCl 100 MG DAILY 12/11 1000 AC 12/12 PO 12/13 1001 0836 Dose Instructions: (1)Lorazepam: See admin criteria Last 24 Hrs of Lab/Moi Results Last 24 Hrs of Labs/Mics: Laboratory Tests 12/12/16 0710: Anion Gap 10, Estimated GFR > 60, BUN/Creatinine Ratio 20.0, Phosphorus 3.4, Magnesium 1.8, Total Bilirubin 0.5, Direct Bilirubin 0.2, AST 25, ALT 52, Alkaline Phosphatase 62, Total Protein 5.8 L, Albumin 3.3 L Assessment/Plan Assessment: Patient is 50-year-old man with past medical history of alcohol abuse, alcohol withdrawal seizures, pancreatitis, hypertension, type 2 diabetes, bipolar disorder admitted to general floor for alcohol detox admisson vitals- afebrile, hr 87, rr 18, 130/87, on room air. cbc and bep normal Sinus rhythm, 88 T-wave inversion in the inferior leads which is not change from the previous EKG Plan: alcohol detox * admitted the patient to GM for alcohol withdrawal/seizure * Seizure/ aspiration precautions, * CIWA, IV ativan per CIWA, * ativan 2mg PO Q6, * banana bag followed by maintenance fluids, * IV PPI, * Social work consult. * Psychiatric consult * Multivitamin * Thiamine * Folate * Depakote 750mg 3 times a day with plan to transition to DR or ER formulation if patient alcohol detox remains uncomplicated. * Please order VPA level to be drawn on the morning of 12/15 prior to taking first Depakote dose of the day. Chest tightness he also complained of tightness, pain around the chest, he noticed palpitations in between the doses of Ativan given at ED. * Serial EKG, troponins negative * Denies any chest pain, racing of heart this morning hypertension Continue home dose of Norvasc Continue home dose of hydrochlorothiazide Continue home dose of losartan Continue home dose of metoprolol GI prophylaxis Continue oral PPI Pain management pathway. DVT ppx: Lovenox SC. Full code. Problem List: 1. Alcohol withdrawal Pain Ratin Pain Location: n/a Pain Goal: Remain pain free Pain Plan: tylinol prn Tomorrow's Labs & Rationales: none KOMAL OSBORNE 12/12/16 1157: Attending MD Review Statement Attending Statement Attending MD Statement: examined this patient, discuss w/resident/PA/DISTRICT HOME ECONOMICS AGENT, agreed w/resident/PA/DISTRICT HOME ECONOMICS AGENT, discussed with family, reviewed EMR data (avail), discussed with nursing, discussed with case mgmt, reviewed images, amended to note
[2016-12-12 14:29] VITALS: BP 118/72
[2016-12-12 23:58] VITALS: BP 136/94
[2016-12-13] VITALS: BP 136/94
[2016-12-13 06:58] VITALS: BP 126/80
--- NOTE | 2016-12-13 08:21 | PN- Housestaff ---
SANTOSH PIERCE 12/13/16 0821: Subjective Follow-up For: Alcohol detoxification Complaints: pain scale (0-10) Subjective: Patient was seen and examined this morning. He is alert, awake and oriented to time place and person. no overnight events reported. He denies any chest pain, racing of heart. He denies any nausea but reporting bad abdominal pain. He denies any withdrawal seizures, agitation, anxiety. he reports some shaking tremors. Denies any hallucinations. Vitals stable afebrile, heart rate 74, blood pressure 118/70, saturating at room air. Review of Systems Constitutional: Denies: chills, diaphoresis, fever, malaise. Objective Last 24 Hrs of Vital Signs/I&O Vital Signs Date Time Temp Pulse Resp B/P B/P Pulse O2 O2 Flow FiO2 Mean Ox Delivery Rate 12/13 1200 97.5 82 18 134/86 96 Room Air 12/13 0954 80 130/86 12/13 0658 97.7 74 20 126/80 96 Room Air 12/13 0000 97.9 88 20 136/94 12/12 2358 97.9 88 20 136/94 93 Room Air 12/12 1429 96.9 65 20 118/72 95 Room Air Intake & Output 12/13 1600 12/13 0800 12/13 0000 Intake Total 430 800 Output Total 350 Balance 80 800 Intake, IV 10 Intake, Oral 420 800 Output, Urine 350 Physical Exam General Appearance: Alert, Oriented X3, Cooperative, No Acute Distress Skin: No Rashes, No Breakdown HEENT: Atraumatic, PERRLA, EOMI, Mucous Membr. moist/pink Neck: Supple, No JVD Lymphatic: Cervical nl Cardiovascular: Normal S1, Normal S2 Lungs: Normal Air Movement Abdomen: Normal Bowel Sounds, Soft Neurological: Normal Speech, Strength at 5/5 X4 Ext, Sensation Intact Extremities: No Clubbing, No Cyanosis, No Edema Vascular: Pulses Symmetrical Current Medications: Current Medications Sig/Joaquin Start time Last Medication Dose Route Stop Time Status Admin Acetaminophen 650 MG Q6P PRN 12/11 1230 AC 12/12 PO 0011 Amlodipine Besylate 10 MG DAILY 12/12 1000 AC 12/13 PO 0954 Divalproex Sodium 750 MG TID 12/11 1600 AC 12/13 PO 0954 Enoxaparin Sodium 40 MG DAILY 05/27 1000 AC 12/13 SC 0954 Folic Acid 1 MG DAILY 12/11 1000 DC 12/13 PO 12/13 1001 0954 Hydrochlorothiazide 50 MG DAILY 12/12 1000 AC 12/13 PO 0954 Insulin Aspart 0 TIDAC 12/11 1700 AC 12/11 SC 1726 Lorazepam 1 MG Q12H 12/13 0000 DC PO 12/13 1201 Lorazepam See Dose Q1P PRN 12/11 1215 AC 12/12 Insts (1) IV 2034 Lorazepam 2 MG Q6H 12/11 1215 AC 12/13 PO 1203 Losartan Potassium 100 MG DAILY 12/12 1000 AC 12/13 PO 0954 Metoprolol Succinate 50 MG DAILY 12/11 1545 AC 12/13 PO 0954 Morphine Sulfate 2 MG Q8 PRN 12/11 1400 AC 12/13 IV 0835 Multivitamins 1 TAB DAILY 12/11 1000 AC 12/13 PO 0954 Ondansetron HCl 4 MG Q6P PRN 12/11 1230 AC 12/11 IV 2124 Pantoprazole Sodium 40 MG DAILY 12/11 1256 AC 12/13 IV 0839 Thiamine HCl 100 MG DAILY 12/11 1000 DC 12/13 PO 12/13 1001 0954 Trazodone HCl 50 MG AT BEDTIME NEED.. 12/12 2045 AC 12/12 PO 2117 Dose Instructions: (1)Lorazepam: See admin criteria Assessment/Plan Assessment: Patient is 50-year-old man with past medical history of alcohol abuse, alcohol withdrawal seizures, pancreatitis, hypertension, type 2 diabetes, bipolar disorder admitted to general floor for alcohol detox admisson vitals- afebrile, hr 87, rr 18, 130/87, on room air. cbc and bep normal Sinus rhythm, 88 T-wave inversion in the inferior leads which is not change from the previous EKG Plan: alcohol detox * admitted the patient to for alcohol withdrawal/seizure * Seizure/ aspiration precautions, * CIWA, IV ativan per CIWA, * ativan 2mg PO Q12, * banana bag followed by maintenance fluids, * IV PPI, * Social work consult. * Psychiatric consult * Multivitamin * Thiamine * Folate * Depakote 750mg 3 times a day with plan to transition to DR or ER formulation if patient alcohol detox remains uncomplicated. * Please order VPA level to be drawn on the morning of 5/30 prior to taking first Depakote dose of the day. Chest tightness he also complained of tightness, pain around the chest, he noticed palpitations in between the doses of Ativan given at ED. * Serial EKG, troponins negative * Denies any chest pain, racing of heart this morning hypertension Continue home dose of Norvasc Continue home dose of hydrochlorothiazide Continue home dose of losartan Continue home dose of metoprolol GI prophylaxis Continue oral PPI Pain management pathway. DVT ppx: Lovenox SC. Full code. Problem List: 1. Alcohol withdrawal Pain Ratin Pain Location: abdomen Pain Goal: Remain pain free Pain Plan: morphine Tomorrow's Labs & Rationales: none KOMAL OSBORNE 12/13/16 0944: Attending MD Review Statement Attending Statement Attending MD Statement: examined this patient, discuss w/resident/PA/DIRECTOR OF SUSTAINABILITY, agreed w/resident/PA/DIRECTOR OF SUSTAINABILITY, discussed with family, reviewed EMR data (avail), discussed with nursing, discussed with case mgmt, reviewed images, amended to note Attending Assessment/Plan: patient vital stable, no delirious , taper ativan and cont to follow. ANNELISE consult. Fransisco on board.
[2016-12-13 12:00] VITALS: BP 134/86
[2016-12-13 14:25] VITALS: BP 135/80
[2016-12-13 19:55] VITALS: BP 140/80
[2016-12-14] VITALS (7 sets, daily range): BP systolic 110–140; BP diastolic 64–90
--- NOTE | 2016-12-14 07:56 | PN- Housestaff ---
CHAD HERNÁNDEZ,MERCEDES 12/14/16 0756: Subjective Follow-up For: Alcohol detoxification Complaints: tremors, Palpitation, Unsteady gait Subjective: Patient was seen and examined to the bed side. He is alert, awake and oriented to time place and person.no overnight events. Review of Systems Constitutional: Reports: weakness. Cardiovascular: Denies: chest pain. Respiratory: Denies: cough, hemoptysis, orthopnea, short of breath, sputum production. Gastrointestinal: Denies: abdominal pain, bloating, constipation, diarrhea, distention, nausea, vomiting. Genitourinary: Denies: no symptoms. Neurological/Psychological: Reports: anxiety. Objective Last 24 Hrs of Vital Signs/I&O Vital Signs Date Time Temp Pulse Resp B/P B/P Pulse O2 O2 Flow FiO2 Mean Ox Delivery Rate 12/15 0302 98.1 80 20 120/80 92 Room Air 12/15 0200 98.1 80 20 120/80 12/14 2258 98.7 88 20 130/90 92 Room Air 12/14 1533 97.7 78 20 126/64 91 12/14 0952 88 132/70 12/14 0951 88 132/70 12/14 0951 88 132/70 12/14 0640 98.0 100 22 110/78 93 Room Air 12/14 0600 98.0 100 22 110/78 Intake & Output 12/15 0800 12/15 0000 12/14 1600 Intake Total 480 720 Output Total Balance 480 720 Intake, Oral 480 720 Physical Exam General Appearance: Alert, Oriented X3, Cooperative, No Acute Distress Cardiovascular: Normal S1, Normal S2 Lungs: Clear to Auscultation, Normal Air Movement Abdomen: Soft, No Tenderness Neurological: Normal Speech, tremors present Extremities: No Clubbing, No Cyanosis, No Edema Assessment/Plan Assessment: Patient is 50-year-old man with past medical history of alcohol abuse, alcohol withdrawal seizures, pancreatitis, hypertension, type 2 diabetes, bipolar disorder admitted to general floor for alcohol detox admisson vitals- afebrile, hr 87, rr 18, 130/87, on room air. cbc and bep normal Sinus rhythm, 88 T-wave inversion in the inferior leads which is not change from the previous EKG Plan: Discharge tmr alcohol detox * admitted the patient to for alcohol withdrawal/seizure * Seizure/ aspiration precautions, * CIWA, IV ativan per CIWA, * Tab Ativan 2mg OD today. * banana bag followed by maintenance fluids, * IV PPI, * Social work consult. * Psychiatric consult * Multivitamin * Thiamine * Folate * Depakote 750mg 3 times a day with plan to transition to DR or ER formulation if patient alcohol detox remains uncomplicated. * Please order VPA level to be drawn on the morning of 12/15 prior to taking first Depakote dose of the day. Chest tightness he also complained of tightness, pain around the chest, he noticed palpitations in between the doses of Ativan given at ED. * Serial EKG, troponins negative * Denies any chest pain, racing of heart this morning hypertension * Continue home dose of Norvasc, hydrochlorothiazide, losartan, metoprolol GI prophylaxis * Continue oral PPI Pain management pathway. DVT ppx: Lovenox SC. Full code. Problem List: 1. T2DM (type 2 diabetes mellitus) 2. Alcohol dependency Pain Ratin Pain Location: not applicable Pain Goal: Remain pain free Pain Plan: mild Tomorrow's Labs & Rationales: none DVT/Prophylaxis: mechanical, pharmacological KOMAL OSBORNE 12/14/16 0957: Attending MD Review Statement Attending Statement Attending MD Statement: examined this patient, discuss w/resident/PA/UPHOLSTERY CUTTER, agreed w/resident/PA/UPHOLSTERY CUTTER, discussed with family, reviewed EMR data (avail), discussed with nursing, discussed with case mgmt, reviewed images, amended to note Attending Assessment/Plan: patient vital stable, no delirious , taper ativan and cont to follow. ANNELISE consult. Fransisco on board.
[2016-12-15 02:00] VITALS: BP 120/80
[2016-12-15 03:02] VITALS: BP 120/80
--- NOTE | 2016-12-15 03:47 | Patient Discharge Instructions ---
Discharge Instructions General Discharge Information You were seen/treated for: Treatment of alcohol withdrawl Special Instructions: Please follow up with your PCP with in a week of discharge. Please take medication as advised Diet Continue normal diet: No Recommended Diet: Diabetic Activity Full Activity/No Limits: No Activity Self Limited: Yes Acute Coronary Syndrome Inclusion Criteria At DC or during hospital stay patient has or had the following: ACS DIAGNOSIS No Discharge Core Measures Meds if any: Prescribed or Continued at Discharge Meds if any: NOT Prescribed or Continued at Discharge Congestive Heart Failure Inclusion Criteria At DC or during hospital stay patient has or had the following: CHF DIAGNOSIS No Discharge Core Measures Meds if any: Prescribed or Continued at Discharge Meds if any: NOT Prescribed or Continued at Discharge Cerebrovascular accident Inclusion Criteria At DC or during hospital stay patient has or had the following: CVA/TIA Diagnosis No Discharge Core Measures Meds if any: Prescribed or Continued at Discharge Meds if any: NOT Prescribed or Continued at Discharge Venous thromboembolism Inclusion Criteria VTE Diagnosis No VTE Type NONE VTE Confirmed by (Test) NONE Discharge Core Measures - Per Current guidelines, there needs to be overlap - treatment for the first 5 days of Warfarin therapy. - If discharged on Warfarin prior to 5 days of - overlap therapy, the patient will need to be - assessed for post discharge needs including - *Post discharge parental anticoagulation - *Warfarin and/or parental anticoagulation education - *Follow up date to check INR post discharge At least 5 days overlap therapy as Inpatient No Meds if any: Prescribed or Continued at Discharge Note: Overlap Therapy is Warfarin and Anticoagulant Meds if any: NOT Prescribed or Continued at Discharge
[2016-12-15 06:00] VITALS: BP 130/80
--- NOTE | 2016-12-15 08:18 | PN- Housestaff ---
CHAD HERNÁNDEZ,MERCEDES 12/15/16 0817: Subjective Follow-up For: Alcohol withdrawal Complaints: no complaints Subjective: Patient is seen and examined at the bedside. He was not complaining of any symptoms. Review of Systems Constitutional: Denies: no symptoms. Objective Last 24 Hrs of Vital Signs/I&O Vital Signs Date Time Temp Pulse Resp B/P B/P Pulse O2 O2 Flow FiO2 Mean Ox Delivery Rate 12/15 1037 98.7 88 20 125/77 98 12/15 0912 87 152/100 12/15 0912 87 152/100 12/15 0911 87 152/100 12/15 0600 98.3 69 20 130/80 12/15 0600 98.3 69 20 130/80 95 Room Air 12/15 0302 98.1 80 20 120/80 92 Room Air 12/15 0200 98.1 80 20 120/80 12/14 2258 98.7 88 20 130/90 92 Room Air Intake & Output 12/15 1600 12/15 0800 12/15 0000 Intake Total 480 Output Total Balance 480 Intake, Oral 480 Physical Exam General Appearance: Alert, Oriented X3, Cooperative, No Acute Distress Cardiovascular: Regular Rate, Normal S1, Normal S2 Lungs: Clear to Auscultation, Normal Air Movement Abdomen: Soft, No Tenderness Extremities: No Clubbing, No Cyanosis, No Edema Assessment/Plan Assessment: Patient is 50-year-old man with past medical history of alcohol abuse, alcohol withdrawal seizures, pancreatitis, hypertension, type 2 diabetes, bipolar disorder admitted to general floor for alcohol detox admisson vitals- afebrile, hr 87, rr 18, 130/87, on room air. cbc and bep normal Sinus rhythm, 88 T-wave inversion in the inferior leads which is not change from the previous EKG Plan: Discharge today alcohol detox * admitted the patient to for alcohol withdrawal/seizure * Seizure/ aspiration precautions, * CIWA, IV ativan per CIWA, * Tab Ativan 2mg OD today, then stop * Multivitamin * Thiamine * Folate * Depakote 750mg 3 times a day with plan to transition to DR or ER formulation if patient alcohol detox remains uncomplicated. Chest tightness * Denies any chest pain, racing of heart this morning hypertension * Continue home dose of Norvasc, hydrochlorothiazide, losartan, metoprolol GI prophylaxis * Continue oral PPI Pain management pathway. DVT ppx: Lovenox SC. Full code. Problem List: 1. T2DM (type 2 diabetes mellitus) 2. Alcohol dependency 3. Bipolar disorder 4. Delirium tremens 5. Polysubstance abuse Pain Ratin Pain Location: Denies of any pain Pain Goal: Remain pain free Pain Plan: [id number] Tomorrow's Labs & Rationales: Not required as patient is discharged DVT/Prophylaxis: early ambulation low risk KOMAL OSBORNE 12/15/16 1156: Attending MD Review Statement Attending Statement Attending MD Statement: examined this patient, discuss w/resident/PA/MOTOR VEHICLE EXAMINER, agreed w/resident/PA/MOTOR VEHICLE EXAMINER, discussed with family, reviewed EMR data (avail), discussed with nursing, discussed with case mgmt, reviewed images, amended to note Attending Assessment/Plan: patient vital stable, no delirious , taper ativan and cont to follow. ANNELISE consult. Fransisco on board. anticipate d/c soon
[2016-12-15] MEDS ORDERED: ONE DAILY MULT1 EAC2 PO (08:42)
[2016-12-15] MEDS ORDERED: TRAZODONE HCL50 M1 PO (08:42)
--- NOTE | 2016-12-15 08:44 | PN- Psychiatry ---
Assessment/Plan Impression: Identifying Info: 51-year-old male iwth a h/o Bipolar disorder and ETOH use d/o presents to emergency department on 12/10/2016 with alcohol withdrawal. Admitted to medicine due to reported seizure at home. Consult requested for medication recommendations SUBJECTIVE Patient reports he is "very anxious." Endorses tactile and mild visual hallucinations but states they do not cause him distress as he knows they are a product of his alcohol withdrawal. He continues to report racing thoughts however he does not appear distracted. Patient continues to be agreeable to aftercare to remain sober. Pt reports he has been on this dose and schedule of depakote for several years and would like to continue it. Brief ROS Gait: Unobserved Sleep: Adequate Appetite: Adequate OBJECTIVE Mental Status Exam Presentation/Appearance: Cooperative with evaluation. Hospital garb. Lying in bed. Orientation: x4 Sensorium: Awake and alert Eye contact: Appropriate Affect: Somewhat constricted Mood: "Very anxious" Depression: Endorses Anxiety: Endorses Thought Content: - Endorses non-distressing tactile hallucinations, VH of "shadows" - Denies SI/HI, AH, PI. States and also believes they will not kill themselves. - Denies Hopeless/Helpless Thoughts Thought Process: Endorses racing thoughts Associations: Appropriate Speech: WNL Judgment: Fair Insight: Fair Cognition: Memory: Grossly intact Attention/Concentration: Grossly intact Fund of Knowledge: Did not assess Abstractions: Did not assess MMSE: Did not assess Per nursing report patient has been tolerating detox while, no issues or concerns ASSESSMENT 51-year-old male presents the context of alcohol withdrawal. He reports he started drinking once stopped attending AA meetings. He is agreeable to follow up care. He continues to endorse some symptoms of garrett/ hypomania but does not appear to be experiencing a mood episode. He would benefit from continued supervised detox. Diagnosis Bipolar Disorder vs Schizoaffective Disorder, Bipolar type Alcohol Use Disorder Cocaine use disorder A total of 30 minutes was spent with the patient with more than 50% of the time spent in counseling and/or coordination of care. Suggestion: 1. We will order a VPA level this AM prior to first dose of depakote. 2. Continue CIWA, Ativan, and vitamin supplementation. 3. Appreciate SW consult for assistance in dispo planning 4. Continue psychotropics as currently ordered. Thank you for including psychiatry in this case we'll continue to follow. Subjective Subjective: as above Objective Last 24 Hrs of Vital Signs/I&O Vital Signs Date Time Temp Pulse Resp B/P B/P Pulse O2 O2 Flow FiO2 Mean Ox Delivery Rate 12/15 0600 98.3 69 20 130/80 12/15 0600 98.3 69 20 130/80 95 Room Air 12/15 0302 98.1 80 20 120/80 92 Room Air 12/15 0200 98.1 80 20 120/80 12/14 2258 98.7 88 20 130/90 92 Room Air 12/14 1533 97.7 78 20 126/64 91 12/14 0952 88 132/70 12/14 0951 88 132/70 12/14 0951 88 132/70 Intake & Output 12/15 1600 12/15 0800 12/15 0000 Intake Total 480 Output Total Balance 480 Intake, Oral 480
[2016-12-15 10:37] VITALS: BP 125/77
--- NOTE | 2016-12-15 11:29 | Discharge Summary ---
See Addendum Visit Information Visit Dates Admission Date: 12/11/16 Discharge Date: 12/15/2016 Hospital Course Course Attending Physician: DYLON HERNÁNDEZ,KOMAL Primary Care Physician: UNKNOWN Hospital Course: Patient is 51-year-old male with past medical history of alcohol abuse, alcohol withdrawal seizures, pancreatitis, hypertension, type 2 diabetes, bipolar disorder presented to emergency department requesting alcohol detox. Vital signs at time of admission - temprature -97.9, Pulse -87, respiratory rate -18, BP- 132/87, Spo2 - 94% on room air. Alcohol withdrawl We admitted patient in GM floor and treated on line of alcohol withdrawl by giving ativan according to CIWA protocol, IV fluids and vitamin supplementation. We took psychiatry consultation and follow their recommendations. We continued all home medication as before. Patient responded well. Hospital course was uneventful. We discharged him with advised to follow up at [facility] 12/16/2016 at 10: 15 for further management. We will also advised to follow up with PCP for further management of DM and Depakoate doses. Allergies: Coded Allergies: haloperidol (From HALDOL) (Severe, ANGIODEMA 12/17/16) olanzapine (From ZYPREXA) (Severe, ANGIODEMA 12/17/16) Disposition Summary Disposition Principal Diagnosis: Alcohol withdrawal Additional Diagnosis: Alcohol withdrawal seizure Hypertension Diabetes History of pancreatitis Bipolar disorder Discharge Disposition: home or self care Discharge Instructions General Discharge Information Code Status: Full Code Patient's Diet: regular diet Patient's Activity: as tolerated, prevent fall Follow-Up Instructions/Appts: Please take an appointment, at [facility] physician's office and decide for PCP. Please avoid/quit alcohol. Medications at Discharge Discharge Medications: Continue taking these medications: Valsartan (Diovan) 320 MG TABLET 1 Tablet ORAL DAILY Qty = 30 Comments: NOT GIVEN IN HOSPITAL Hydrochlorothiazide (Hydrochlorothiazide) 50 MG TABLET 1 Tablet ORAL DAILY Qty = 90 Comments: Last Taken: 12/15/16 Time: 0915 Metoprolol Succinate (Metoprolol Succinate) 50 MG TAB.ER.24H 1 Tablet ORAL DAILY Qty = 90 Comments: Last Taken:12/15/16 Time: 0915 AM Amlodipine Besylate (Amlodipine Besylate) 10 MG TABLET 1 Tablet ORAL DAILY Qty = 90 Comments: Last Taken: 12/15/16 Time: 0915 AM Metformin HCl (Metformin HCl) 850 MG TABLET 1 Tablet ORAL DAILY Qty = 30 Comments: NOT GIVEN IN HOSPITAL Valproic Acid (Depakene) 250 MG CAPSULE 3 Tablet ORAL THREE TIMES DAILY Qty = 60 Comments: Last Taken:12/15/16 Time: 1200 Start taking the following new medications: Trazodone HCl (Trazodone HCl) 50 MG TABLET 50 Milligram ORAL AT BEDTIME NEEDED as needed for SLEEP Qty = 30 No Refills Comments: Last Taken: 12/14/16 Time: 10:00 PM Multivitamin (One Daily Multivitamin) 1 EACH TABLET 1 Tablet ORAL DAILY Qty = 30 No Refills Comments: Last Taken: 12/15/16 Time: 0915 AM Copies To: SISI HERNÁNDEZ,TESSA Attending MD Review Statement Documenting Attending: KOMAL OSBORNE MD
== END 2016-12-15 12:05 | DRG 774 ==
LOC: ERH 21:43 → ERHI 12-11 11:36 → 2NA 12-11 11:36 → ENRESERV 12-11 12:10 → ENTRNSPT 12-11 12:55 → EDTRNSPT 12-11 13:24 → EDTRNSPTTYP 12-11 13:24 → 2NA 12-11 13:40 → CMPTRNSPT 12-11 13:56 → 2NA 12-11 22:28 → ENPENDDIS 12-15 11:11 → 2NA 12-15 12:05
PROVIDERS: Emergency Medicine; ADMIT Internal Medicine
DX: F10.239 Alcohol dependence with withdrawal, unspecified (principal); R56.9 Unspecified convulsions; F14.90 Cocaine use, unspecified, uncomplicated; F31.9 Bipolar disorder, unspecified; Y90.1 Blood alcohol level of 20-39 mg/100 ml; I10 Essential (primary) hypertension; E11.9 Type 2 diabetes mellitus without complications; K21.9 Gastro-esophageal reflux disease without esophagitis; Z79.84 Long term (current) use of oral hypoglycemic drugs
CPT/HCPCS: 2NAP; 80307; 81003; 82436; 93005; 93010; 96374; G0480; J1650; J2405; J3490

== ENCOUNTER 2016-12-17 17:05 | Inpatient (IN) | payer OTHER ==
[~2016-12-17] VITALS: Ht 180.3 cm; Wt 95.3 kg
[~2016-12-17 17:05] MED LIST changes: +TRAZODONE HCL50 M1 PO
--- NOTE | 2016-12-17 17:14 | NUR ---
PER PT LEFT HERE 3 DAYS AGO FOR ETOH DETOX STARTED DRINKING RIGHT AWAY, KEEP HAVING SEIZURES LAST DRINK 5 HRS AGO A BOTTLE NO DEPAKOTE IN 3 DAYS
[2016-12-17 17:31] LABS: ABSOLUTE BASOPHIL COUNT 0 /CUMM (0.0-0.2); ABSOLUTE EOSINOPHIL COUNT 0 /CUMM (0.0-0.7); ABSOLUTE GRANULOCYTE CT 2.7 /CUMM (1.4-6.5); ABSOLUTE LYMPH COUNT 1.5 /CUMM (1.2-3.4); ABSOLUTE MONOCYTE COUNT 0.5 /CUMM (0.10-0.60); BASOPHIL % 0.2 % (0.0-2.0); EOSINOPHIL % 0.5 % (0-5); GRANULOCYTE % 56.6 % (42.2-75.2); HEMATOCRIT 46.7 % (42-52); MEAN CORPUSCULAR HGB 30.3 PG (27.0-31.0); MEAN CORPUSCULAR HGB CONC 34.4 G/DL (33.0-37.0); MEAN CORPUSCULAR VOLUME 88.1 FL (80.0-94.0); MEAN PLATELET VOLUME 7.9 FL (7.4-10.4); PLATELET COUNT 210 /CUMM (130-400); RBC DISTRIBUTION WIDTH 13.3 % (11.5-14.5); WHITE BLOOD CELL COUNT 4.8 /CUMM (4.8-10.8)
--- NOTE | 2016-12-17 18:18 | NUR ---
PT TO HALLWAY IN , WANDED BY SECURITY AND CHANGED INTO BLUE SCRUBS. AWARE OF NEED FOR URINE SAMPLE, "DRINKING A LOT OF WATER RIGHT NOW," EATING DINNER AT THIS TIME, SITTERS IN ATTENDANCE, NO CONCERNS VOICED.
--- NOTE | 2016-12-17 19:28 | ED PSYCHIATRIC COMPLAINT ---
See Addendum History of Present Illness General Chief Complaint: ETOH/Drug Related Complaint Stated Complaint: "I LEFT HERE FOR DETOX AND I FELL OFF THE WAGON" Source: patient Exam Limitations: no limitations Vital Signs & Intake/Output Vital Signs & Intake/Output Vital Signs Date Time Temp Pulse Resp B/P B/P Pulse O2 O2 Flow FiO2 Mean Ox Delivery Rate 12/18 0535 95.7 89 16 135/91 06/ 0535 95.7 81 16 135/91 97 Room Air Room Air / 0338 96.1 80 18 141/75 96 Room Air / 0337 96.1 80 16 141/75 / 0056 96.6 93 16 161/98 98 Room Air Room Air / 0055 96.6 93 16 161/98 12/17 2312 99 20 147/99 12/17 2249 97.4 99 20 147/99 96 Room Air 12/17 2122 98.4 102 23 143/98 95 Room Air 12/17 2120 98.4 102 23 143/98 12/17 2009 98 Room Air 12/17 2000 97.8 90 20 137/86 12/17 1924 97.8 90 20 137/86 96 12/17 1717 98.3 100 20 131/80 99 ED Intake and Output 12/18 0000 12/17 1200 Intake Total 400 Output Total Balance 400 Intake, Oral 400 Patient 210 lb Weight Allergies Coded Allergies: haloperidol (From HALDOL) (Severe, ANGIODEMA 12/17/16) olanzapine (From ZYPREXA) (Severe, ANGIODEMA 12/17/16) Reconcile Medications Amlodipine Besylate 10 MG TABLET 1 TAB PO DAILY HEART/BP (Reported) Hydrochlorothiazide 50 MG TABLET 1 TAB PO DAILY BP (Reported) Metformin HCl 850 MG TABLET 1 TAB PO DAILY DIABETES (Reported) Metoprolol Succinate 50 MG TAB.ER.24H 1 TAB PO DAILY BP (Reported) Multivitamin (One Daily Multivitamin) 1 EACH TABLET 1 TAB PO DAILY ETOH Trazodone HCl 50 MG TABLET 50 MG PO AT BEDTIME NEEDED PRN SLEEP Valproic Acid (Depakene) 250 MG CAPSULE 3 TAB PO TID mental health Valsartan (Diovan) 320 MG TABLET 1 TAB PO DAILY BP (Reported) Triage Note: PER PT LEFT HERE 3 DAYS AGO FOR ETOH DETOX STARTED DRINKING RIGHT AWAY, KEEP HAVING SEIZURES LAST DRINK 5 HRS AGO A BOTTLE Triage Nurses Notes Reviewed? yes Onset: Abrupt Duration: day(s): Timing: recent history HPI: 12/17/16 7 PM 51-year-old male presents to the emergency department for alcohol withdrawal. According to the patient he has a history of alcohol dependency and alcohol withdrawal seizures. The patient states that he was admitted to the hospital for alcohol withdrawal 3 weeks ago. Now he has been drinking for 3 days only but heavy and daily. He says that he had several seizures today. Now in the emergency Department he is awake and alert He does admit to epigastric abdominal pain. Thes onset of the symptoms were abrupt, the duration has been last 3 days, the severity is significant; as his symptoms required to undergo emergency department for care. (REUBEN CASIANO DO) Past History Travel History Traveled to [place] past 21 day No Medical History Any Pertinent Medical History? see below for history Neurological: seizure, (ALCOHOL WITHDRAWAL) EENT: 04/07/2016: trached Cardiovascular: hypertension, 02/2016: Hx 11 beat V tach Respiratory: failure to wean from vebt Gastrointestinal: GERD, pancreatitis Hepatic: cholelithiasis Renal: resolved PEPE Musculoskeletal: NONE Psychiatric: alcohol dependence, anxiety, bipolar disease, substance abuse ( cocaine/EtOH) Endocrine: diabetes Blood Disorders: NONE Cancer(s): NONE VE TEACHER/Reproductive: NONE History of MRSA: No History of VRE: No History of CDIFF: No Surgical History Surgical History: cholecystectomy, shoulder surgery Psychosocial History Who do you live with Family Services at Home None What is your primary language Kinyarwanda Tobacco Use: Current Daily Use Daily Tobacco Use Amount/Type: => 5 Cigarettes daily Family History Family History, If Any: FATHER FH: diabetes mellitus Hx Contributory? No (REUBEN CASIANO DO) Review of Systems Review of Systems Constitutional: Denies: fever. EENTM: Denies: visual changes. Respiratory: Denies: short of breath. Cardiovascular: Denies: chest pain. GI: Reports: abdominal pain. Genitourinary: Reports: no symptoms. Musculoskeletal: Reports: no symptoms. Skin: Denies: rash. Neurological/Psychological: Reports: other (seizure). Immunologic/Allergic: Reports: no symptoms. (REUBEN CASIANO DO) Physical Exam Physical Exam General Appearance: no apparent distress, alert, awake, mild distress Head: atraumatic, normal appearance Eyes: Bilateral: normal appearance, PERRL, EOMI. Ears, Nose, Throat: normal pharynx, normal ENT inspection Neck: normal inspection, supple Respiratory: normal breath sounds, chest non-tender, no respiratory distress Cardiovascular: regular rate/rhythm Gastrointestinal: soft, tenderness Extremities: normal range of motion Neurological/Psychiatric: no motor/sensory deficits, awake, alert, anxious Appearance/Memory/Insight: disheveled Behavoir/Eye Contact/Speech: cooperative Thoughts/Hallucinations: no apparent hallucination Skin: rash SAD PERSONS Done? patient not suicidal (REUBEN CASIANO DO) Progress Differential Diagnosis: drug intoxication, drug overdose, drug withdrawal Plan of Care: Orders Procedure Date/time Status Regular Diet 12/18 B Active CASE MANAGEMENT CONSULT 12/18 0641 Active TROPONIN LEVEL 12/18 0144 Complete EKG 12/18 0144 Active Add-on Test (ER Only) 12/17 1928 Active EKG 12/17 1928 Active Add-on Test (ER Only) 12/17 1857 Active CIWA 12/17 1857 Active Add-on Test (ER Only) 12/17 1828 Active TROPONIN LEVEL 12/17 1721 Complete DEPAKOTE LEVEL 12/17 1721 Complete COMPREHENSIVE METABOLIC PANEL 12/17 1721 Complete CBC WITHOUT DIFFERENTIAL 12/17 1718 Complete URINE DRUG SCREEN FOR ER ONLY 12/17 1716 Complete LIPASE 12/17 1716 Complete ETHANOL 12/17 1716 Complete AMYLASE 12/17 1716 Complete Current Medications Sig/Joaquin Start time Last Medication Dose Stop Time Status Admin Lorazepam 2 MG Q2P PRN 12/18 0345 AC (Ativan) Lorazepam 1 MG Q2P PRN 12/18 0345 AC 12/18 (Ativan) 0348 Laboratory Tests 12/18/16 0209: Troponin I < 0.01 12/17/16 1721: Anion Gap 16, Estimated GFR > 60, BUN/Creatinine Ratio 13.6, Glucose 157 H, Calcium 9.7, Total Bilirubin 0.5, AST 33, ALT 75 H, Alkaline Phosphatase 79, Troponin I < 0.01, Total Protein 7.7, Albumin 5.0, Globulin 2.7, Albumin/ Globulin Ratio 1.9, Amylase 61, Lipase 127, CBC w Diff NO MAN DIFF REQ, RBC 5.30 , MCV 88.1, MCH 30.3, RDW 13.3, MPV 7.9, Gran % 56.6, Lymphocytes % 31.6, Monocytes % 11.1 H, Eosinophils % 0.5, Basophils % 0.2, Absolute Granulocytes 2.7, Absolute Lymphocytes 1.5, Absolute Monocytes 0.5, Absolute Eosinophils 0, Absolute Basophils 0, PUBS MCHC 34.4, Valproic Acid < 10.0 L, Serum Alcohol 158.0 12/17/16 1711: Urine Opiates Screen < 100.00, Methadone Screen < 40, Barbiturate Screen < 60, Ur Phencyclidine Scrn < 6.00, Amphetamines Screen 193, U Benzodiazepines Scrn < 85, Urine Cocaine Screen > 1000 H, Urine Cannabis Screen 77.80 H Initial ED EKG: pending (REUBEN CASIANO DO) Hand-Off Endorsed To: REUBEN MALAVE MD Endorsed Time: 0700 Pending: consult (case management) (SAEED RICO MD) Departure Departure Disposition: STILL A PATIENT Condition: Stable Referrals: UNKNOWN (PCP/Family) Departure Forms: Customer Survey General Discharge Information Comments 12/18/16 1:45 am patient signed out to Dr Rico. for reevaluation in the am (REUBEN CASIANO DO) Departure Clinical Impression Primary Impression: Alcohol intoxication Qualifiers: Complication of substance-induced condition: with unspecified complication Qualified Code: F10.929 - Alcohol use, unspecified with intoxication, unspecified Secondary Impressions: Seizure activity as manifestation of blood transfusion reaction (SAEED RICO MD) Critical Care Note Critical Care Note Critical Care Time: 30-74 min (REUBEN CASIANO DO)
[2016-12-17 20:00] VITALS: BP 137/86
--- NOTE | 2016-12-17 20:06 | NUR ---
C/O CHEST PAIN, MD AWARE. NORMAL SINUS RHYTHM WITHOUT ECTOPY ON EKG, RATE 97
[2016-12-17 21:20] VITALS: BP 143/98
--- NOTE | 2016-12-17 22:41 | NUR ---
PT SLEEPING ON BED, AROUSES TO VOICE, CONTS TO C/O ANXIETY, MILD TREMORS, NO OTHER SYMPTOMS. C/O DRY THROAT, REMINDED OF WATER AT BEDSIDE AND PROVIDED WITH JUICE, NO OTHER CONCERNS, SITTERS REMAIN AT DOORWAY.
[2016-12-17 23:12] VITALS: BP 147/99
--- NOTE | 2016-12-17 23:13 | NUR ---
CIWA 8 AND MEDICATED WITH ATIVAN PER ORDER. SITTERS REMAIN PRESENT FOR SAFETY
[2016-12-18] VITALS (13 sets, daily range): BP systolic 133–161; BP diastolic 75–104
--- NOTE | 2016-12-18 | NUR ---
SLEEPING AT THIS TIEM. SITTER AT DOOR.
--- NOTE | 2016-12-18 00:53 | NUR ---
AWAKENED FOR VS. CO "JUMPING FEELING IN CHEST. AND I'M UNABLE TO SLEEP" PT NOT DIAPHORETIC. SITTER AT DOOR.
--- NOTE | 2016-12-18 03:00 | NUR ---
AWAKE. VS TAKEN. TREMORS PRESENT. DIAPHORETIC. DR HAMILTON AWARE--ATIVAN 1MG PO GIVEN.
--- NOTE | 2016-12-18 05:35 | NUR ---
AWAKENED FOR VS. NO TREMORS PRESENT, SKINS DRY. SITTER PRESENT
--- NOTE | 2016-12-18 07:40 | NUR ---
PT SITTING UP EATING BREAKFAST TRAY AT THIS TIME. OFFERS NO COMPAINTS AT THIS TIME. SITTER REMAINS PRESENT AT THIS TIME. WILL CTM
--- NOTE | 2016-12-18 08:07 | NUR ---
JACQUELYN CALLED FOR LILY
--- NOTE | 2016-12-18 09:13 | NUR ---
PT MEDICATED PER EMAR. TOLERATED WELL.
--- NOTE | 2016-12-18 09:25 | NUR ---
PT MEDICATED WITH PRN ATIVAN PER [facility] PROTOCOL.
--- NOTE | 2016-12-18 09:59 | NUR ---
LUNCH TRAY ORDERED
--- NOTE | 2016-12-18 12:11 | NUR ---
PT REPORTS HE FEELS A LITTLE BIT BETTER SINCE HAVING ATIVAN EARLIER.
--- NOTE | 2016-12-18 12:22 | NUR ---
PT MEDICATED WITH ATIVAN PER [facility] PROTOCOL.
--- NOTE | 2016-12-18 13:45 | NUR ---
PT REPORTS SOME NAUSEA, BUT HAS NOT VOMITTED. CIWA DECREASED TO 7.
--- NOTE | 2016-12-18 14:58 | NUR ---
PT SITTING UP FOR VITALS AT THIS TIME. PT APPEARS TREMULOUS AT THIS TIME.
--- NOTE | 2016-12-18 15:09 | NUR ---
PT MEDICATED WITH 1MG PO ATIVAN PER ORDER AT THIS TIME
--- NOTE | 2016-12-18 17:44 | NUR ---
12/18 CASE MGMT- [facility] AUTH #[id number] FOR 6 DAYS UNTIL 12/23/16- DR MALAVE AND ADMITTING AWARE.
--- NOTE | 2016-12-18 20:37 | NUR ---
CONT TO AWAIT BED.
--- NOTE | 2016-12-18 21:31 | NUR ---
REPORT TO [facility] [employer] BOOKED/
--- NOTE | 2016-12-18 21:36 | History & Physical ---
JAIMEE HERNÁNDEZ,[facility] 12/18/16 2135: General Information and [facility] MD Statement: I have seen and personally examined JB LANDIN and documented this H&P. The patient is a 51 year old M who presented with a patient stated chief complaint of [seizures]. Source of Information: patient Exam Limitations: no limitations History of Present Illness: The patient is a 51-year-old man with past medical history of alcohol abuse, alcohol withdrawal seizures including a prolonged hospitalization with an ICU admission for alcohol detox in [facility] in 2016, pancreatitis, hypertension, type 2 diabetes, and bipolar disorder. He also had an alcohol detox completed 3 days ago. He presents saying he has falling off the wagon and has begun drinking again immediately left the hospital. He states he's been drinking heavily for the past 3 days by one bottle of vodka a day. His last drink was 24 hours ago. He reported that he had 3 episodes of seizures in his home yesterday with one of them witnessed by his fiance. The episode lasted for 1 minute. At this time he complains of a headache and itchy sensation otherwise body particularly scalp. He also states that his vision is blurred since yesterday. He denies depression, homicidal or suicidal ideation at this time, and states that he wants to get better. He admits to some chest tightness and palpitations but denies lightheadedness, diaphoresis. Allergies/Medications Allergies: Coded Allergies: haloperidol (From HALDOL) (Severe, ANGIODEMA 12/17/16) olanzapine (From ZYPREXA) (Severe, ANGIODEMA 12/17/16) Home Med list Amlodipine Besylate 10 MG TABLET 1 TAB PO DAILY HEART/BP (Reported) Hydrochlorothiazide 50 MG TABLET 1 TAB PO DAILY BP (Reported) Metformin HCl 850 MG TABLET 1 TAB PO DAILY DIABETES (Reported) Metoprolol Succinate 50 MG TAB.ER.24H 1 TAB PO DAILY BP (Reported) Multivitamin (One Daily Multivitamin) 1 EACH TABLET 1 TAB PO DAILY ETOH Trazodone HCl 50 MG TABLET 50 MG PO AT BEDTIME NEEDED PRN SLEEP Valproic Acid (Depakene) 250 MG CAPSULE 3 TAB PO TID mental health Valsartan (Diovan) 320 MG TABLET 1 TAB PO DAILY BP (Reported) Past History Travel History Traveled to [place] past 21 day No Medical History Neurological: seizure, (ALCOHOL WITHDRAWAL) EENT: 04/07/2016: trached Cardiovascular: hypertension, 02/2016: Hx 11 beat V tach Respiratory: failure to wean from vebt Gastrointestinal: GERD, pancreatitis Hepatic: cholelithiasis Renal: resolved PEPE Musculoskeletal: NONE Psychiatric: alcohol dependence, anxiety, bipolar disease, substance abuse ( cocaine/EtOH) Endocrine: diabetes Blood Disorders: NONE Cancer(s): NONE SURVEY RESEARCH MANAGER/Reproductive: NONE History of MRSA: No History of VRE: No History of CDIFF: No Isolation History: Standard Surgical History Surgical History: cholecystectomy, shoulder surgery Past Family/Social History Family History Relations & Conditions if any FATHER FH: diabetes mellitus Psychosocial History Where do you live? Home Who Do You Live With? fiance Services at Home: None Primary Language: Belarusian Smoking Status: Current Everyday Smoker (1/2 ppd) ETOH Use: alcoholic Illicit Drug Use: cocaine Living Will? unknown Power of Laundry Equipment Operator/HCP? unknown Functional Ability ADLs Unknown: dressing, eating, toileting, bathing. 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 EENTM: Reports: blurred vision. Denies: double vision, visual changes, nasal congestion. Cardiovascular: Reports: palpitations. Denies: chest pain, edema. Respiratory: Denies: cough, short of breath, sputum production. GI: Denies: bloating, constipation, diarrhea, nausea. Genitourinary: Denies: dysuria, hematuria. Musculoskeletal: Denies: back pain, muscle pain. Skin: Denies: change in skin color. Neurological/Psychological: Reports: anxiety, headache. Exam & Diagnostic Data Last 24 Hrs of Vital Signs/I&O Vital Signs Date Time Temp Pulse Resp B/P B/P Pulse O2 O2 Flow FiO2 Mean Ox Delivery Rate 12/18 2226 97.9 70 20 150/92 97 12/18 2120 98.5 83 18 140/86 12/18 2117 98.5 83 18 140/86 96 Room Air 12/18 194 98.7 83 18 161/102 12/18 1917 98.7 83 18 161/102 96 Room Air 06/02 1818 97.7 85 18 155/97 98 Room Air 06/02 1730 97.1 85 18 142/94 06/02 1723 97.1 85 18 142/94 97 Room Air 06/02 1626 96.9 86 18 145/100 06/02 1612 96.9 86 18 145/100 96 Room Air 06/02 1458 98.2 97 20 139/87 95 Room Air 06/02 1457 98.2 97 20 139/87 06/02 1330 97.7 95 15 133/85 06/02 1330 97.7 95 15 133/85 97 Room Air Room Air 06/02 1210 97.5 97 15 148/83 06/02 1210 97.5 97 15 148/83 95 Room Air Room Air 06/02 1059 98.2 96 20 138/90 96 06/02 0918 97.8 103 15 137/93 06/02 0912 103 137/93 06/02 0912 103 137/93 06/02 0912 103 137/93 06/02 0911 97.8 103 15 137/93 98 Room Air Room Air 06/02 0738 98.4 90 18 156/104 06/02 0738 98.4 90 18 156/104 98 Room Air 06/02 0535 95.7 89 16 135/91 06/02 0535 95.7 81 16 135/91 97 Room Air Room Air Intake & Output 06/03 0800 06/03 0000 06/02 1600 Intake Total Output Total Balance Patient 210 lb Weight Physical Exam General Appearance Alert, Oriented X3, Cooperative, No Acute Distress, anxious Skin No Rashes Skin Temp/Moisture Exam: Warm/Dry HEENT Atraumatic, PERRLA, EOMI, Mucous Membr. moist/pink Neck Supple, No JVD, No thryomegaly, +2 Carotid Pulse wo Bruit Lymphatic Cervical nl Cardiovascular Regular Rate, Normal S1, Normal S2, No Murmurs Lungs Clear to Auscultation, Normal Air Movement Abdomen Normal Bowel Sounds, Soft, No Tenderness, No Hepatospenomegaly, No Masses Neurological Normal Speech, Strength at 5/5 X4 Ext, Normal Tone, Sensation Intact, Tremors of outstretched hands Extremities No Edema, Normal Pulses, No Tenderness/Swelling Vascular Normal Pulses, Pulses Symmetrical Sepsis Peripheral Pulse Location: Dorsalis Pedis Last 24 Hrs of Labs/Moi: Laboratory Tests 12/18 12/17 12/17 0209 1721 1711 Chemistry Sodium (137 - 145 mmol/L) 142 Potassium (3.5 - 5.1 mmol/L) 4.4 Chloride (98 - 107 mmol/L) 102 Carbon Dioxide (22 - 30 mmol/L) 23 Anion Gap (5 - 16) 16 BUN (9 - 20 mg/dL) 15 Creatinine (0.7 - 1.2 mg/dL) 1.1 Estimated GFR (>60 ml/min) > 60 BUN/Creatinine Ratio (7 - 25 %) 13.6 Glucose (65 - 99 mg/dL) 157 H Calcium (8.4 - 10.2 mg/dL) 9.7 Total Bilirubin (0.2 - 1.3 mg/dL) 0.5 AST (17 - 59 U/L) 33 ALT (21 - 72 U/L) 75 H Alkaline Phosphatase (< 127 U/L) 79 Creatine Kinase (55 - 170 U/L) 169 Troponin I (<0.11 ng/ml) < 0.01 < 0.01 Total Protein (6.3 - 8.2 g/dL) 7.7 Albumin (3.5 - 5.0 g/dL) 5.0 Globulin (1.9 - 4.2 gm/dL) 2.7 Albumin/Globulin Ratio (1.1 - 2.2 %) 1.9 Amylase (30 - 110 U/L) 61 Lipase (23 - 300 U/L) 127 Hematology CBC w Diff NO MAN DIFF REQ WBC (4.8 - 10.8 /CUMM) 4.8 RBC (4.70 - 6.10 /CUMM) 5.30 Hgb (14.0 - 18.0 G/DL) 16.1 Hct (42 - 52 %) 46.7 MCV (80.0 - 94.0 FL) 88.1 MCH (27.0 - 31.0 PG) 30.3 RDW (11.5 - 14.5 %) 13.3 Plt Count (130 - 400 /CUMM) 210 MPV (7.4 - 10.4 FL) 7.9 Gran % (42.2 - 75.2 %) 56.6 Lymphocytes % (20.5 - 51.1 %) 31.6 Monocytes % (1.7 - 9.3 %) 11.1 H Eosinophils % (0 - 5 %) 0.5 Basophils % (0.0 - 2.0 %) 0.2 Absolute Granulocytes (1.4 - 6.5 /CUMM) 2.7 Absolute Lymphocytes (1.2 - 3.4 /CUMM) 1.5 Absolute Monocytes (0.10 - 0.60 /CUMM) 0.5 Absolute Eosinophils (0.0 - 0.7 /CUMM) 0 Absolute Basophils (0.0 - 0.2 /CUMM) 0 PUBS MCHC (33.0 - 37.0 G/DL) 34.4 Toxicology Urine Opiates Screen (>2000 NG/ML) < 100.00 Methadone Screen (>300 NG/ML) < 40 Barbiturate Screen (>200 NG/ML) < 60 Valproic Acid (50 - 120 ug/mL) < 10.0 L Ur Phencyclidine Scrn (>25 NG/ML) < 6.00 Amphetamines Screen (>1000 NG/ML) 193 U Benzodiazepines Scrn (>200 NG/ML) < 85 Urine Cocaine Screen (>300 NG/ML) > 1000 H Urine Cannabis Screen (>50 NG/ML) 77.80 H Serum Alcohol (<10 MG/DL) 158.0 Diagnostic Data EKG Results Sinus rhythm. Heart rate 69 bpm. Assessment/Plan Assessment: The patient is a 51-year-old man with past medical history of alcohol abuse, alcohol withdrawal seizures including a prolonged hospitalization with an ICU admission for alcohol detox in [facility] in 2016, pancreatitis, hypertension, type 2 diabetes, and bipolar disorder. He also had an alcohol detox completed 3 days ago. He now returns for alcohol detox after relapsing 3 days ago. His U tox is positive for cannabis, and cocaine. His antiseizure medication his valproate level is low, less than 10 suggesting that he might not have been taking this medication during his latest binge. He is admitted to the general medicine floor for alcohol detox. Problem list 1. Alcohol abuse for detoxification 2. History of alcohol withdrawal seizures 3. Hypertension 4. Diabetes mellitus 5. Bipolar disorder Plan: 1. Alcohol abuse for detoxification * Admit to Gen Med * IV Ativan as per [facility] protocol * PO ativan 2 mg Q 6 hrs * IV banana bag 1L x 1, then continue with PO multivitamins, thiamine and folic acid daily * Monitor electrolytes and relplete accordingly * Psych consult * Social work consult 2. History of alcohol withdrawal seizures * seizure precautions * Watch for severe withdrawal and low threshhold for ativan drip 3. Hypertension * Continue home medications for hypertension * PO metoprolol 50 mg daily, by mouth hydrocodone) Dyazide 50 mg daily, by mouth amlodipine 10 mg daily 4. Diabetes mellitus * Novolog sliding scale TIDAC/HS * Accuchecks TIDAC/HS 5. Bipolar disorder * Start Depakote 750 mg 3 times a day as Depakote level is less than 10 and patient was likely not taking it during his recent binge DVT ppx SC lovenox Patient is full code As Ranked By This Provider Problem List: 1. Alcohol withdrawal 2. Hypertension 3. Polysubstance abuse Core Measures/Miscellaneous Acute Coronary Syndrome ACS Diagnosis: No Cerebrovascular Accident CVA/TIA Diagnosis: No Congestive Heart Failure CHF Diagnosis: No Venous Thromboembolism VTE Risk Factors: Acute medical illness, Age > 40 [facility] prophylaxis d/t: No contraindications No VTE Pharm Prophylaxis d/t: No contraindications VTE Diagnosis: No VTE Type: NONE VTE Confirmed by (Test): NONE Severe Sepsis Severe Sepsis Present: No Septic Shock Septic Shock Present: No Miscellaneous Documentation Attending Case Discussed With: SOHEILA SANCHEZ MD Primary Care Physician: UNKNOWN Patient sees these Specialists None Level of Patient Care: General Medicine SOHEILA SANCHEZ 12/19/16 0440: Attending MD Review Statement Attending Statement Attending MD Statement: examined this patient, discuss w/resident/PA/INSURANCE RISK SURVEYOR, agreed w/resident/PA/INSURANCE RISK SURVEYOR, reviewed EMR data (avail), reviewed images, amended to note Attending Assessment/Plan: CC: Alcohol withdrawal PMH: History of alcohol related seizure, alcoholism, history of pancreatitis, DM , HTN patient was admitted from December 11 to December 15 for alcohol withdrawal and detox. He was not discharged on Ativan or Librium, once patient went home he started binge drinking again up to 1 gallon of vodka daily for last 3 days, then he decided that he has to quit so he came to ER. Patient had 3 episodes of seizures yesterday according to him and beat his lateral side of the tongue and one of the episodes. He has not been taking Depakote since last 3 days. Off note patient had an extensive hospitalization stay last year regarding alcohol withdrawal, aspiration pneumonia requiring ICU stay S/P tracheostomy and PEG tube: Eventually resolved. Currently apart from being anxious and tremorous and having very dark colored urine, patient does not complain of anything. Vitals: Patient is intermittently hypertensive, mild tachycardia, afebrile, oxygenating well on room air. On examination: A O 3, cooperative, no acute distress, mild tremors, neck supple, JVD normal, no lymphadenopathy, mucosa moist, no focal neurological deficit, pupils equal round reactive to light, no dependent edema, no obvious skin rashes or inflammation CVS: S1-S2, RRR. RS: Clear to auscultate bilaterally. Abdomen: Soft, NT, ND, bowel sounds present. Labs: CBC, BMP, LFT, troponin, lipase unremarkable except ALT 75 Valproic acid undetectable, cocaine > 1000, TLC 77, alcohol 158 A and P + Alcohol detox + History of Alcohol related seizure + History of diabetes, hypertension + Cocaine abuse - Admit to general med - Seizure precaution - Continue home doses of Depakote - Scheduled by mouth Ativan 2 mg every 6, when necessary IV Ativan according to CIWA score - When necessary Ativan for seizure - Banana bag - Hold metformin, continue sliding scale insulin, continue trazodone, amlodipine , HCTZ, valsartan. - Check CPK today to sample in lab and tomorrow morning - Check INR, CBC, BMP, LFT in a.m. - DVT prophylaxis with Lovenox
--- NOTE | 2016-12-18 22:23 | NUR ---
ADMIT NOTE PT ARRIVED TO FLOOR AT THIS TIME VERY ANXIOUS AND TREMORS, STATING "I NEED ATIVAN, IM LIKE CRAWLING OUT OF MY SKIN" DENIES HALLUCINATIONS, ORIENTED X 3, MEDICATED WITH 2MG IV ATIVAN AT THIS TIME, ON RA, SKIN INTACT, BED ALARM APPLIED. ORIENTED TO ROOM, WILL MONITOR.
--- NOTE | 2016-12-19 04:42 | Admission Certification ---
Admission Certification Certification Statement - As attending physician, I certify that at the time of - admission, based on clinical presentation, severity of - symptoms, need for further diagnostic testing and - therapeutic interventions, and risk of adverse outcomes - without in-hospital treatment, in my clinical assessment, - this patient requires an acute hospital stay for a minimum - of two nights or longer. I have also considered psychsocial - factors such as support system, advanced age, financial - issues, cognitive issues, and failed out-patient treatments, - past re-admission history, safety of patient, and lack of - compliance as applicable. Specific rationale supporting this admission is: Alcohol detox
[2016-12-19 06:00] VITALS: BP 140/88
--- NOTE | 2016-12-19 07:47 | PN- Housestaff ---
JAIMEE HERNÁNDEZ,[facility] 12/19/16 0746: Subjective Follow-up For: Tremors Anxiety ETOH detox Complaints: Anxiety Subjective: Mr. Corcoran feels very anxious this morning. However, he states that the ativan helped him have a good sleep. He also complains of a headache and a feeling of chest tightness. Review of Systems Constitutional: Denies: chills, fever, weakness. EENTM: Denies: blurred vision, double vision. Cardiovascular: Denies: chest pain, edema, palpitations. Respiratory: Denies: cough, short of breath, sputum production. Gastrointestinal: Denies: abdominal pain, constipation, diarrhea. Genitourinary: Denies: dysuria, hematuria. Musculoskeletal: Denies: back pain, muscle pain. Neurological/Psychological: Reports: anxiety, headache, tremors. Objective Last 24 Hrs of Vital Signs/I&O Vital Signs Date Time Temp Pulse Resp B/P B/P Pulse O2 O2 Flow FiO2 Mean Ox Delivery Rate 12/19 0600 98.4 60 20 140/88 96 Room Air 06/02 2227 97.9 70 20 150/92 97 06/02 2121 98.5 83 18 140/86 06/02 2118 98.5 83 18 140/86 96 Room Air 06/02 1942 98.7 83 18 161/102 06/02 1918 98.7 83 18 161/102 96 Room Air 06/02 1818 97.7 85 18 155/97 98 Room Air 06/02 1730 97.1 85 18 142/94 06/02 1723 97.1 85 18 142/94 97 Room Air 06/02 1626 96.9 86 18 145/100 06/02 1612 96.9 86 18 145/100 96 Room Air 06/02 1458 98.2 97 20 139/87 95 Room Air 06/02 1457 98.2 97 20 139/87 06/02 1330 97.7 95 15 133/85 06/02 1330 97.7 95 15 133/85 97 Room Air Room Air 06/02 1210 97.5 97 15 148/83 06/02 1210 97.5 97 15 148/83 95 Room Air Room Air 06/02 1059 98.2 96 20 138/90 96 06/02 0918 97.8 103 15 137/93 06/02 0912 103 137/93 06/02 0912 103 137/93 06/02 0912 103 137/93 06/02 0911 97.8 103 15 137/93 98 Room Air Room Air Intake & Output 12/19 1600 12/19 0800 12/19 0000 Intake Total 1620 Output Total Balance 1620 Intake, IV 900 Intake, Oral 720 Number 0 Bowel Movements Patient 210 lb Weight Physical Exam General Appearance: Alert, Oriented X3, Cooperative, No Acute Distress Skin: No Rashes Skin Temp/Moisture Exam: Warm/Dry Sepsis Skin Exam (color): Normal for Ethnicity HEENT: Atraumatic, PERRLA, EOMI, Mucous Membr. moist/pink Neck: Supple, No JVD, No thryomegaly, +2 Carotid Pulse wo Bruit Lymphatic: Cervical nl Cardiovascular: Regular Rate, Normal S1, Normal S2, No Murmurs Lungs: Clear to Auscultation, Normal Air Movement Abdomen: Normal Bowel Sounds, Soft, No Tenderness, No Hepatospenomegaly, No Masses Neurological: Normal Speech, Normal Tone Extremities: No Edema, Normal Pulses Vascular: Normal Pulses, Pulses Symmetrical Current Medications: Current Medications Sig/Joaquin Start time Last Medication Dose Route Stop Time Status Admin Acetaminophen 650 MG Q6-PRN PRN 12/18 2215 AC PO Amlodipine Besylate 10 MG DAILY 12/18 1000 AC 12/18 PO 0912 Cyanocobalamin/ 1 BAG ONCE ONE 12/18 2300 DC 12/18 Thiamine/Pyridoxine IV 12/19 0659 2308 Sodium Chloride 1,000 ML Cyanocobalamin/ 1 BAG ONCE ONE 12/18 2145 DC Thiamine/Pyridoxine IV 12/19 0544 Sodium Chloride 1,000 ML Divalproex Sodium 750 MG TID 12/18 2200 AC 12/19 PO 0059 Enoxaparin Sodium 40 MG DAILY 12/19 1000 AC SC Folic Acid 1 MG DAILY 12/19 1000 AC PO Hydrochlorothiazide 50 MG DAILY 12/18 1000 AC 12/18 PO 0912 Insulin Aspart 0 AT BEDTIME 12/19 2200 AC SC Insulin Aspart 0 TIDAC 12/19 0800 AC SC Lorazepam 2 MG Q6 12/18 2359 AC 12/19 PO 0620 Lorazepam 0 Q1P PRN 12/18 2145 AC 12/19 IV 0111 Lorazepam 0 .STK-MED ONE 12/18 1950 DC PO Lorazepam 0 .STK-MED ONE 12/18 1752 DC .ROUTE Lorazepam 0 .STK-MED ONE 12/18 1739 DC PO Lorazepam 0 .STK-MED ONE 12/18 1509 DC PO Lorazepam 0 .STK-MED ONE 12/18 1222 DC PO Lorazepam 2 MG Q2P PRN 12/18 1100 DC 12/18 IV 1756 Lorazepam 0 .STK-MED ONE 12/18 0927 DC PO Lorazepam 2 MG Q2P PRN 12/18 0345 DC PO Lorazepam 1 MG Q2P PRN 12/18 0345 DC 12/18 PO 1947 Losartan Potassium 100 MG DAILY 12/18 1000 AC 12/18 PO 0912 Metformin HCl 850 MG DAILY 12/18 1000 DC 12/18 PO 0912 Metoprolol Succinate 50 MG DAILY 12/19 1000 AC PO Metoprolol Succinate 50 MG DAILY 12/18 1000 DC 12/18 PO 0912 Multivitamins 1 TAB DAILY 12/18 1000 AC 12/18 Therapeutic PO 0912 Omeprazole 40 MG DAILY 12/18 2158 AC 12/18 PO 2308 Thiamine HCl 100 MG DAILY 12/19 1000 AC PO Last 24 Hrs of Lab/Moi Results Last 24 Hrs of Labs/Mics: Laboratory Tests 12/19/16 0720: Anion Gap 10, Estimated GFR > 60, BUN/Creatinine Ratio 16.7 Assessment/Plan Assessment: The patient is a 51-year-old man with past medical history of alcohol abuse, alcohol withdrawal seizures including a prolonged hospitalization with an ICU admission for alcohol detox in [facility] in 2016, pancreatitis, hypertension, type 2 diabetes, and bipolar disorder. He also had an alcohol detox completed 3 days ago. He now returns for alcohol detox after relapsing 3 days ago. His U tox is positive for cannabis, and cocaine. His antiseizure medication his valproate level is low, less than 10 suggesting that he might not have been taking this medication during his latest binge. He is admitted to the general medicine floor for alcohol detox. Problem list 1. Alcohol abuse for detoxification 2. History of alcohol withdrawal seizures 3. Hypertension 4. Diabetes mellitus 5. Bipolar disorder Plan: 1. Alcohol abuse for detoxification Continue IV Ativan as per CIWA protocol PO ativan 2 mg Q 6 hrs IV banana bag 1L x 1, then continue with PO multivitamins, thiamine and folic acid daily Monitor electrolytes and relplete accordingly Psych consult Social work consult 2. History of alcohol withdrawal seizures seizure precautions Watch for severe withdrawal and low threshhold for ativan drip 3. Hypertension Continue home medications for hypertension PO metoprolol 50 mg daily, by mouth hydrocodone) Dyazide 50 mg daily, by mouth amlodipine 10 mg daily 4. Diabetes mellitus Novolog sliding scale TIDAC/HS Accuchecks TIDAC/HS 5. Bipolar disorder Continue Depakote 750 mg 3 times a day as Depakote level is less than 10 and patient was likely not taking it during his recent binge DVT ppx SC lovenox Patient is full code Problem List: 1. Alcohol withdrawal 2. Hypertension 3. Polysubstance abuse Pain Ratin Pain Location: None Pain Goal: Remain pain free Pain Plan: Tylenol as needed Tomorrow's Labs & Rationales: BEP for electrolyte derangements DVT/Prophylaxis: pharmacological TIESHA HERNÁNDEZ,GENE 12/19/16 1310: Attending MD Review Statement Attending Statement Attending MD Statement: examined this patient, discuss w/resident/PA/HOCKEY SCOUT, agreed w/resident/PA/HOCKEY SCOUT, reviewed EMR data (avail), discussed with nursing, discussed with case mgmt, amended to note Attending Assessment/Plan: Patient seen and examined, says that he's feeling terrible. He is still scoring on CIWA. Still shaking. vss. on exam; some shakes, patient looks anxious. Laboratory Tests 12/19 12/19 0720 0600 Chemistry Sodium (137 - 145 mmol/L) 135 L Potassium (3.5 - 5.1 mmol/L) 3.8 Chloride (98 - 107 mmol/L) 99 Carbon Dioxide (22 - 30 mmol/L) 27 Anion Gap (5 - 16) 10 BUN (9 - 20 mg/dL) 15 Creatinine (0.7 - 1.2 mg/dL) 0.9 Estimated GFR (>60 ml/min) > 60 BUN/Creatinine Ratio (7 - 25 %) 16.7 Total Bilirubin (0.2 - 1.3 mg/dL) 0.7 Cancelled Direct Bilirubin (< 0.4 mg/dL) 0.3 Cancelled AST (17 - 59 U/L) 25 Cancelled ALT (21 - 72 U/L) 56 Cancelled Alkaline Phosphatase (< 127 U/L) 60 Cancelled Creatine Kinase (55 - 170 U/L) 68 Cancelled Total Protein (6.3 - 8.2 g/dL) 6.2 L Cancelled Albumin (3.5 - 5.0 g/dL) 3.8 Cancelled A/P; 51-year-old male with pmh sig for alcohol abuse, alcohol withdrawal seizures , hypertension, diabetes, history of bipolar disorder who is admitted with acute alcohol intoxication and had alcohol withdrawal seizures prior to admission as reported by the patient at the time of admission. Continue CIWA protocol. Continue scheduled Ativan, decrease it to 1.5 mg every 6 hours scheduled. Continue Depakote. Blood pressure seemed to be stable on current regimen. Patient on sliding scale insulin for diabetes. DVT px: Lovenox. Social work evaluation on Wednesday.
[2016-12-19 15:44] VITALS: BP 140/86
[2016-12-19 16:32] VITALS: BP 140/86
[2016-12-19 17:04] LABS: PT 10.4 SEC (9.4-12.5)
[2016-12-19 18:32] VITALS: BP 154/94
[2016-12-19 19:07] VITALS: BP 154/94
[2016-12-19 22:40] VITALS: BP 140/90
[2016-12-20] VITALS (7 sets, daily range): BP systolic 118–140; BP diastolic 70–100
--- NOTE | 2016-12-20 08:44 | PN- Housestaff ---
See Addendum Subjective Follow-up For: ETOH detox Anxiety tremor Subjective: Patient seen and examined. Feels less anxious compared to yesterday. Slept well overnight. Denies headache, chest pain, nausea, vomiting, dizziness, lightheadedness, abdominal pain, urinary symptoms. CIWA scores ranging from 0 to maximum 13 for the past 24 hours. On by mouth lorazepam 2 mg every 6 hours also receiving IV lorazepam per CIWA (received 2 mg last night and 2 mg this morning). Vital signs stable. No overnight events reported. Review of Systems Constitutional: Denies: see HPI. Objective Last 24 Hrs of Vital Signs/I&O Vital Signs Date Time Temp Pulse Resp B/P B/P Pulse O2 O2 Flow FiO2 Mean Ox Delivery Rate 12/20 0630 98.5 84 20 118/80 96 Room Air / 0205 98.4 75 20 134/70 96 Room Air / 2240 98.1 76 20 140/90 96 Room Air / 1907 98.2 84 20 154/94 06/03 1832 98.2 84 20 154/94 95 Room Air /03 1632 97.6 64 20 140/86 06/03 1544 97.6 64 20 140/86 96 06/03 1041 60 140/88 06/03 1041 60 140/88 06/03 1041 60 140/88 Intake & Output /04 1600 06/04 0800 06/04 0000 Intake Total 120 120 Output Total 300 Balance 120 -180 Intake, IV 20 20 Intake, Oral 100 100 Output, Urine 300 Physical Exam General Appearance: Alert, Oriented X3, Cooperative, No Acute Distress Skin: No Rashes, No Breakdown, No Significant Lesion HEENT: Atraumatic, PERRLA, EOMI, Mucous Membr. moist/pink Neck: Supple, No JVD, No thryomegaly, +2 Carotid Pulse wo Bruit, No LAD Lymphatic: Axillary nl, Cervical nl Cardiovascular: Regular Rate, Normal S1, Normal S2, No Murmurs, Gallops, Rubs Lungs: Clear to Auscultation, Normal Air Movement Abdomen: Normal Bowel Sounds, Soft, No Tenderness, No Hepatospenomegaly, No Masses Neurological: Normal Gait, Normal Speech, Strength at 5/5 X4 Ext, Normal Tone, Sensation Intact, Cranial Nerves 3-12 NL, Reflexes 2+ Extremities: No Clubbing, No Cyanosis, No Edema, Normal Pulses, No Tenderness/ Swelling Vascular: Normal Pulses, Pulses Symmetrical Current Medications: Current Medications Sig/Joaquin Start time Last Medication Dose Route Stop Time Status Admin Acetaminophen 650 MG Q6-PRN PRN 12/18 2215 AC PO Amlodipine Besylate 10 MG DAILY 12/18 1000 AC 12/19 PO 1041 Divalproex Sodium 750 MG TID 12/18 2200 AC 12/19 PO 2109 Enoxaparin Sodium 40 MG DAILY 12/19 1000 AC 12/19 SC 1043 Folic Acid 1 MG DAILY 12/19 1000 AC 12/19 PO 1041 Hydrochlorothiazide 50 MG DAILY 12/18 1000 AC 12/19 PO 1041 Insulin Aspart 0 AT BEDTIME 12/19 2200 AC SC Insulin Aspart 0 TIDAC 12/19 0800 AC 12/19 SC 1223 Lorazepam 1 MG .STK-MED ONE 12/19 2342 DC PO 12/19 2343 Lorazepam 2 MG Q6 12/18 2359 AC 12/20 PO 0630 Lorazepam 0 Q1P PRN 12/18 2145 AC 12/19 IV 2131 Losartan Potassium 100 MG DAILY 12/18 1000 AC 12/19 PO 1041 Metoprolol Succinate 50 MG DAILY 12/19 1000 AC 12/19 PO 1041 Multivitamins 1 TAB DAILY 12/18 1000 AC 12/19 Therapeutic PO 1041 Omeprazole 40 MG DAILY 12/18 2158 AC 12/19 PO 1041 Thiamine HCl 100 MG DAILY 12/19 1000 AC 12/19 PO 1041 Last 24 Hrs of Lab/Moi Results Last 24 Hrs of Labs/Mics: Laboratory Tests 12/19/16 1635: PT 10.4, INR 0.99 Assessment/Plan Assessment: The patient is a 51-year-old man with past medical history of alcohol abuse, alcohol withdrawal seizures including a prolonged hospitalization with an ICU admission for alcohol detox in [facility] in 2016, pancreatitis, hypertension, type 2 diabetes, and bipolar disorder. He also had an alcohol detox completed 3 days ago. He now returns for alcohol detox after relapsing 3 days ago. His U tox is positive for cannabis, and cocaine. His antiseizure medication his valproate level is low, less than 10 suggesting that he might not have been taking this medication during his latest binge. He is admitted to the general medicine floor for alcohol detox. Problem list 1. Alcohol abuse for detoxification 2. History of alcohol withdrawal seizures 3. Hypertension 4. Diabetes mellitus 5. Bipolar disorder Plan: 1. Alcohol abuse for detoxification Continue IV Ativan as per CIIL protocol PO ativan 2 mg Q 6 hrs will taper to 1.5 MG q6 continue with PO multivitamins, thiamine and folic acid daily Monitor electrolytes and relplete accordingly Psych consult Social work consult 2. History of alcohol withdrawal seizures seizure precautions Watch for severe withdrawal and low threshhold for ativan drip 3. Hypertension Continue home medications for hypertension PO metoprolol 50 mg daily, by mouth hydrocodone) Dyazide 50 mg daily, by mouth amlodipine 10 mg daily 4. Diabetes mellitus Novolog sliding scale TIDAC/HS Accuchecks TIDAC/HS 5. Bipolar disorder Continue Depakote 750 mg 3 times a day as Depakote level is less than 10 and patient was likely not taking it during his recent binge DVT ppx SC lovenox Patient is full code Problem List: 1. Alcohol withdrawal seizure 2. Alcohol withdrawal Pain Ratin Pain Location: NA Pain Goal: Remain pain free Pain Plan: PRN Tomorrow's Labs & Rationales: BEP: to monitor electrolytes(K level)
[2016-12-21] VITALS (7 sets, daily range): BP systolic 120–140; BP diastolic 60–100
--- NOTE | 2016-12-21 08:35 | PN- Housestaff ---
JAIMEE HERNÁNDEZ,[facility] 12/21/16 0835: Subjective Follow-up For: ETOH detox Anxiety tremor Complaints: Anxiety Subjective: Patient seen and examined. Feels less anxious compared to yesterday. Slept well overnight. However reports chest discomfort, epigastric discomfort and headache 5/10 intensity. Denies nausea, vomiting, dizziness, lightheadedness, abdominal pain, urinary symptoms. CIWA scores ranging from 0 to maximum 20 for the past 24 hours. On by mouth lorazepam 1.5 mg every 6 hours also receiving IV lorazepam per CIWA (received 2 mg last night and total 10 mg in last 24 hours). Review of Systems Constitutional: Denies: chills, fever, weakness. EENTM: Denies: blurred vision, nasal congestion. Cardiovascular: Reports: chest pain. Denies: palpitations, syncope. Respiratory: Denies: cough, short of breath, wheezing. Gastrointestinal: Reports: abdominal pain. Denies: diarrhea, bloody stool. Genitourinary: Denies: dysuria, urgency. Musculoskeletal: Denies: back pain. Objective Last 24 Hrs of Vital Signs/I&O Vital Signs Date Time Temp Pulse Resp B/P B/P Pulse O2 O2 Flow FiO2 Mean Ox Delivery Rate / 0630 98.5 83 20 128/76 95 Room Air 06/05 0024 98.2 90 20 132/78 96 Room Air 06/04 2207 97.7 80 20 134/96 94 Room Air 06/04 2200 97.7 80 20 134/96 06/04 2000 98.4 88 24 130/100 06/04 1453 97.2 68 20 140/80 94 06/04 1105 84 118/80 06/04 1105 84 118/80 06/04 1104 84 118/80 Intake & Output / 1600 06/05 0800 06/05 0000 Intake Total 300 Output Total Balance 300 Intake, Oral 300 Physical Exam General Appearance: Alert, Oriented X3, Cooperative, No Acute Distress Skin: No Rashes Skin Temp/Moisture Exam: Warm/Dry Sepsis Skin Exam (color): Normal for Ethnicity HEENT: Atraumatic, PERRLA, EOMI, Mucous Membr. moist/pink Neck: Supple, No JVD, No thryomegaly, +2 Carotid Pulse wo Bruit Lymphatic: Cervical nl Cardiovascular: Regular Rate, Normal S1, Normal S2, No Murmurs Lungs: Clear to Auscultation, Normal Air Movement Abdomen: Normal Bowel Sounds, Soft, No Tenderness, No Hepatospenomegaly, No Masses Neurological: Normal Speech, Strength at 5/5 X4 Ext, Normal Tone Extremities: No Clubbing, No Cyanosis, No Edema Vascular: Normal Pulses, Pulses Symmetrical Current Medications: Current Medications Sig/Joaquin Start time Last Medication Dose Route Stop Time Status Admin Acetaminophen 650 MG Q6-PRN PRN 12/18 2215 AC PO Amlodipine Besylate 10 MG DAILY 12/18 1000 AC 12/20 PO 1105 Divalproex Sodium 750 MG TID 12/18 2200 AC 12/20 PO 2201 Enoxaparin Sodium 40 MG DAILY 12/19 1000 AC 12/20 SC 1106 Folic Acid 1 MG DAILY 12/19 1000 AC 12/20 PO 1105 Hydrochlorothiazide 50 MG DAILY 12/18 1000 AC 12/20 PO 1105 Insulin Aspart 0 AT BEDTIME 12/19 2200 AC SC Insulin Aspart 0 TIDAC 12/19 0800 AC 12/19 SC 1223 Lorazepam 1.5 MG Q6 12/20 1200 AC 12/21 PO 0614 Lorazepam 2 MG Q6 12/18 2359 DC 12/20 PO 0630 Lorazepam 0 Q1P PRN 12/18 2145 AC 12/20 IV 2221 Losartan Potassium 100 MG DAILY 12/18 1000 AC 12/20 PO 1104 Metoprolol Succinate 50 MG DAILY 12/19 1000 AC 12/20 PO 1105 Multivitamins 1 TAB DAILY 12/18 1000 AC 12/20 Therapeutic PO 1105 Omeprazole 40 MG DAILY 12/18 2158 AC 12/20 PO 1105 Thiamine HCl 100 MG DAILY 12/19 1000 AC 12/20 PO 1105 Last 24 Hrs of Lab/Moi Results Last 24 Hrs of Labs/Mics: Laboratory Tests 12/21/16 0610: Anion Gap 10, Estimated GFR > 60, BUN/Creatinine Ratio 14.4 Assessment/Plan Assessment: The patient is a 51-year-old man with past medical history of alcohol abuse, alcohol withdrawal seizures including a prolonged hospitalization with an ICU admission for alcohol detox in [facility] in 2016, pancreatitis, hypertension, type 2 diabetes, and bipolar disorder. He also had an alcohol detox completed 3 days prior to admission. He returned for alcohol detox after relapsing 3 days prior to admission. His U tox is positive for cannabis, and cocaine. His antiseizure medication his valproate level is low, less than 10 suggesting that he might not have been taking this medication during his latest binge. He is admitted to the general medicine floor for alcohol detox. Problem list 1. Alcohol abuse for detoxification 2. History of alcohol withdrawal seizures 3. Hypertension 4. Diabetes mellitus 5. Bipolar disorder Plan: 1. Alcohol abuse for detoxification Continue IV Ativan as per CIWA protocol Reduce PO ativan to 1 mg Q 6 hrs continue with PO multivitamins, thiamine and folic acid daily Monitor electrolytes and relplete accordingly Psych consult Social work consult for IOP placement 2. History of alcohol withdrawal seizures seizure precautions Watch for severe withdrawal and low threshhold for ativan drip 3. Hypertension Continue home medications for hypertension PO metoprolol 50 mg daily, by mouth hydrocodone) Dyazide 50 mg daily, by mouth amlodipine 10 mg daily 4. Diabetes mellitus Novolog sliding scale TIDAC/HS Accuchecks TIDAC/HS 5. Bipolar disorder Check depakote level this morning Continue Depakote 750 mg 3 times a day as admission depakote level was less than 10 and patient was likely not taking it during his recent binge DVT ppx SC lovenox Patient is full code Problem List: 1. Alcohol withdrawal seizure 2. Alcohol withdrawal Pain Ratin Pain Location: Epigastric Pain Goal: Pain 4 or less Pain Plan: PO tylenol 650 mg Q6 PRN PO motrin 400 mg TID PRN for moderate pain Tomorrow's Labs & Rationales: Not needed DVT/Prophylaxis: KOMAL Arizmendi 12/21/16 0920: Attending MD Review Statement Attending Statement Attending MD Statement: examined this patient, discuss w/resident/PA/DISTANCE LEARNING COORDINATOR, agreed w/resident/PA/DISTANCE LEARNING COORDINATOR, discussed with family, reviewed EMR data (avail), discussed with nursing, discussed with case mgmt, reviewed images, amended to note Attending Assessment/Plan: Patient's and examined, still feels shaky and anxious. CIWA scores are slightly better than yesterday. Vital signs are stable. Blood sugars are running in acceptable range. Recommended decreasing the Ativan to 1 mg every 8 hours scheduled, continue when necessary Ativan. Continue current anti-hypertensive as well as insulin regimen. No further seizures. DVT px: Lovenox. Consult SW placed.
--- NOTE | 2016-12-21 13:45 | Discharge Summary ---
Visit Information Visit Dates Admission Date: 12/18/16 Discharge Date: 12/24/16 Hospital Course Course Attending Physician: KOMAL OSBORNE MD Primary Care Physician: UNKNOWN Hospital Course: The patient is a 51-year-old man with past medical history of alcohol abuse, alcohol withdrawal seizures including a prolonged hospitalization with an ICU admission for alcohol detox in [facility] in 2016, pancreatitis, hypertension, type 2 diabetes, and bipolar disorder. He also had an alcohol detox completed 3 days prior to admission. He returned for alcohol detox after relapsing only 3 days after his prior alcohol detox. He stated that he had been drinking heavily 3 days prior to admission-one bottle of vodka a day. His last drink was 24 hours prior to presentation. He reported that he had 3 episodes of seizures in his home a day prior to admission with one of them witnessed by his fiance. The episode lasted for 1 minute. At presentation, he complained of a headache and itchy sensation all over his body particularly his scalp. He also stated that his vision was blurred. He denied depression, homicidal or suicidal ideation. He admited to some chest tightness and palpitations but denied lightheadedness, and diaphoresis. Physical exam at presentation General Appearance: Alert, Oriented X3, Cooperative, No Acute Distress, anxious Skin: No Rashes Skin: Temp/Moisture Exam: Warm/Dry HEENT: Atraumatic, PERRLA, EOMI, Mucous Membr. moist/pink Neck: Supple, No JVD, No thryomegaly, +2 Carotid Pulse wo Bruit Lymphatic Cervical nl Cardiovascular: Regular Rate, Normal S1, Normal S2, No Murmurs Lungs: Clear to Auscultation, Normal Air Movement Abdomen: Normal Bowel Sounds, Soft, No Tenderness, No Hepatospenomegaly, No Masses Neurological: Normal Speech, Strength at 5/5 X4 Ext, Normal Tone, Sensation Intact, Tremors of outstretched hands Extremities: No Edema, Normal Pulses, No Tenderness/Swelling Vascular: Normal Pulses, Pulses Symmetrical Sepsis: Peripheral Pulse Location: Dorsalis Pedis normal On admission, his U tox was positive for cannabis, and cocaine. Concerning his valproate (bipolar medication), his admission valproate level was low (less than 10) suggesting that he might not have been taking this medication during his latest alcohol binge. He was admitted to the general medicine floor for alcohol withdrawal/impending delirium tremens for alcohol detox. He was treated with a PO ativan scheduled taper and IV ativan as per [facility] protocol. He was reviewed by psychiatrist and geriatric social worker and planned for an intensive outpatient program for his alcohol abuse on discharge. His diabetes was managed with a novolog sliding scale, and his hypertension was managed with his home medicaitions of PO metoprolol 50 mg daily, by mouth hydrocodone, Dyazide 50 mg daily, by mouth amlodipine 10 mg daily. He had no complications during admission. Complications: none Allergies: Coded Allergies: haloperidol (From HALDOL) (Severe, ANGIODEMA 12/17/16) olanzapine (From ZYPREXA) (Severe, ANGIODEMA 12/17/16) Significant Procedures: none Disposition Summary Disposition Principal Diagnosis: 1. Alcohol withdrawal/impending delirium tremens Additional Diagnosis: 2. History of alcohol withdrawal seizures 3. Hypertension 4. Diabetes mellitus 5. Bipolar disorder Discharge Disposition: home or self care Discharge Instructions General Discharge Information Code Status: Full Code Patient's Diet: Regular Patient's Activity: as tolerated Follow-Up Instructions/Appts: 1. You don't have a primary care provider. You have been referred to [facility]iles at [address] [place] [address] for January 07 2017 at 3:15 pm. Please follow up with that appointment after discharge. 2. Please go for your appointment at the intensive outpatient program for alcohol, as you did not attend the last appointment scheduled for you. Medications at Discharge Discharge Medications: Continue taking these medications: Valsartan (Diovan) 320 MG TABLET 1 Tablet ORAL DAILY Qty = 30 Comments: NOT GIVEN IN HOSPITAL Hydrochlorothiazide (Hydrochlorothiazide) 50 MG TABLET 1 Tablet ORAL DAILY Qty = 90 Comments: Last Taken: 12/23/16 Time: 0915 Metoprolol Succinate (Metoprolol Succinate) 50 MG TAB.ER.24H 1 Tablet ORAL DAILY Qty = 90 Comments: Last Taken:12/24/16 Time: 0915 AM Amlodipine Besylate (Amlodipine Besylate) 10 MG TABLET 1 Tablet ORAL DAILY Qty = 90 Comments: Last Taken: 12/24/16 Time: 0915 AM Metformin HCl (Metformin HCl) 850 MG TABLET 1 Tablet ORAL DAILY Qty = 30 Comments: NOT GIVEN IN HOSPITAL Valproic Acid (Depakene) 250 MG CAPSULE 3 Tablet ORAL THREE TIMES DAILY Qty = 60 Comments: Last Taken:12/23/16 Time: 930am Trazodone HCl (Trazodone HCl) 50 MG TABLET 50 Milligram ORAL AT BEDTIME NEEDED as needed for SLEEP Qty = 30 Comments: NOT GIVEN IN HOSPITAL Multivitamin (One Daily Multivitamin) 1 EACH TABLET 1 Tablet ORAL DAILY Qty = 30 Comments: Last Taken: 12/24/16 Time: 0915 AM Start taking the following new medications: Lorazepam (Ativan) 1 MG TABLET 1 Tablet ORAL AT BEDTIME Qty = 3 No Refills Instructions: . Comments: Last Taken: 12/23/16 Time: 8PM Famotidine (Famotidine) 20 MG TABLET 20 Milligram ORAL TWICE DAILY Qty = 60 No Refills Instructions: . Comments: Last Taken: 12/24/16 Time: 10AM Folic Acid (Folic Acid) 1 MG TABLET 1 Milligram ORAL DAILY Qty = 30 No Refills Instructions: . Comments: Last Taken: 12/24/16 Time: 930 AM Thiamine HCl (Vitamin B-1) 100 MG TABLET 100 Milligram ORAL DAILY Qty = 30 No Refills Instructions: . Comments: Last Taken: 12/24/16 Time: 930 am Copies To: JAIMEE HERNÁNDEZ,KALYN LAIRD MD,TES[place]
--- NOTE | 2016-12-21 15:13 | Cons- Psychiatry ---
Psychiatric Consult Date of Consult: 12/21/16 Reason for Consult: "ETOH Detox" Ordered by Dr. George Renteria attending History of Present Illness: Identifying Info: 51-year-old male presents to [facility] emergency department on 12/17/2016 3 days after discharge for ETOH detox. Admitted to medicine due to reported seizure at home. CC: "Same old, same old" HPI: The patient reports that immediately following discharge he began to drink again leading to him missing his IOP intake appointment. That was his second missed intake appointment in 2 weeks. He had been consuming approximately a gallon of vodka daily. "I just wasn't ready, now I'm ready." He declines any mood complaints complaints and psych interventions stating, "I'm going to make my own arrangements, I'm going go to [place]'s inpatient program." On previous admission approximately 3 weeks ago he reported started drinking again after a 9-1/2 month period of sobriety following his last detox hospitalization at [facility]. During that hospitalization the patient developed delirium and required IV Ativan drip. At that time he was hospitalized for over a month and a trach was placed. Additionally during that stay the patient had reported adverse reactions to Haldol and Zyprexa as well as suspected akthesia due to risperidone. He's been consuming approximately 750 mL of liquor daily. He attributes his relapse to stress at work which led to attending fewer AA meetings which subsequently led to resuming consumption of alcohol. He reports his primary care provider who is yet to see since last admission will continue to prescribe his Depakote. PMH: Please see the H&P for a complete listing Pancreatitis, hypertension, type 2 diabetes Past Psych History: Bipolar disorder versus schizoaffective disorder Previously treated at [facility] in [place] PCP current prescribes his Depakote Family Psych History: Not obtained Substance History Alcohol use disorder Cocaine use disorder -Treatment History of attending AA Family Substance History: Not obtained Social: . Has a daughter that lives locally. Resides in [place]. Self-employed Abuse/Trauma: Not obtained Current Home Psychotropic Medications: Depakote 750 mg 3 times a day Current Hospital Psychotropic Medications: Med Divalproex Sodium 750 MG PO TID 12/18/16 2200 Lorazepam 1 MG PO Q8 12/21/16 1400 Allergies: Coded Allergies: haloperidol (From HALDOL) (Severe, ANGIODEMA 12/17/16) olanzapine (From ZYPREXA) (Severe, ANGIODEMA 12/17/16) Current Medications: Current Medications Sig/Joaquin Start time Last Medication Dose Route Stop Time Status Admin Acetaminophen 650 MG Q6-PRN PRN 12/18 2215 AC PO Amlodipine Besylate 10 MG DAILY 12/18 1000 AC 12/21 PO 0938 Divalproex Sodium 750 MG TID 12/18 2200 AC 12/21 PO 0938 Enoxaparin Sodium 40 MG DAILY 12/19 1000 AC 12/21 SC 0939 Folic Acid 1 MG DAILY 12/19 1000 AC 12/21 PO 0938 Hydrochlorothiazide 50 MG DAILY 12/18 1000 AC 12/21 PO 0938 Insulin Aspart 0 AT BEDTIME 12/19 2200 AC SC Insulin Aspart 0 TIDAC 12/19 0800 AC 12/19 SC 1223 Lorazepam 1 MG Q8 12/21 1400 AC 12/21 PO 1402 Lorazepam 1.5 MG Q6 12/20 1200 DC 12/21 PO 0614 Lorazepam 0 Q1P PRN 12/18 2145 AC 12/21 IV 1246 Losartan Potassium 100 MG DAILY 12/18 1000 AC 12/21 PO 0938 Metoprolol Succinate 50 MG DAILY 12/19 1000 AC 12/21 PO 0938 Multivitamins 1 TAB DAILY 12/18 1000 AC 12/21 Therapeutic PO 0938 Omeprazole 40 MG DAILY 12/18 2158 AC 12/21 PO 0938 Patient Medication 1 ED .STK-MED ONE 12/21 1416 CO Teaching ED 12/21 1417 Thiamine HCl 100 MG DAILY 12/19 1000 AC 12/21 PO 0938 Past History Past Medical History Neurological: seizure, (ALCOHOL WITHDRAWAL) EENT: 04/07/2016: trached Cardiovascular: hypertension, 02/2016: Hx 11 beat V tach Respiratory: failure to wean from vebt Gastrointestinal: GERD, pancreatitis Hepatic: cholelithiasis Renal: resolved PEPE Musculoskeletal: NONE Psychiatric: alcohol dependence, anxiety, bipolar disease, substance abuse ( cocaine/EtOH) Endocrine: diabetes Blood Disorders: NONE Cancer(s): NONE 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 MACHINE TENDER/Reproductive: NONE Past Surgical History Surgical History: cholecystectomy, shoulder surgery Psychosocial History Strengths/Capabilities: Treatment motivated Physical Limitations (Interventions): Current withdrawal syndrome Psychiatric Treatment History Psych Treatment Psychiatric Treatment Yes (as above) Diagnosis: Bipolar Disorder vs Schizoaffective Disorder, Bipolar type Alcohol Use Disorder Risk Factors: SA/MH hospitalized, substance abuse, lives alone, male Substance Use/Abuse History Drug Use/Abuse Substances Used/Abused Yes (as above) Substance Abuse Treatment Substance Abuse Treatment Past Substance Abuse [place] Yes (as above) Assessment/Plan Mental Status Mental Status Exam: Presentation/Appearance: Cooperative with evaluation. Hospital garb. No diaphoresis or tremor noted, does appear flushed Orientation: x4 Sensorium: Awake and alert Eye contact: Appropriate Affect: Somewhat blunted Mood: "Optimistic" Depression: Denies Anxiety: Denies Thought Content: - Denies SI/HI, AH/VH, PI. States and also believes they will not kill themselves. - Denies Hopeless/Helpless Thoughts Thought Process: Linear, goal directed Associations: Appropriate Speech: WNL Judgment: Fair Insight: Fair Cognition: Memory: Grossly intact Attention/Concentration: Grossly intact Fund of Knowledge: Did not assess Abstractions: Did not assess MMSE: Did not assess Brief ROS Gait: Steady Sleep: Fair Appetite: Adequate Energy: WNL IADLs/ADLs: Independent Lab Results: Laboratory Tests 12/21/16 0610: Anion Gap 10, Estimated GFR > 60, BUN/Creatinine Ratio 14.4, Valproic Acid 85.0 12/19/16 1635: PT 10.4, INR 0.99 12/19/16 0720: Anion Gap 10, Estimated GFR > 60, BUN/Creatinine Ratio 16.7, Total Bilirubin 0.7 , Direct Bilirubin 0.3, AST 25, ALT 56, Alkaline Phosphatase 60, Creatine Kinase 68, Total Protein 6.2 L, Albumin 3.8 12/19/16 0600: Total Bilirubin Cancelled, Direct Bilirubin Cancelled, AST Cancelled, ALT Cancelled, Alkaline Phosphatase Cancelled, Creatine Kinase Cancelled, Total Protein Cancelled, Albumin Cancelled Diffential Diagnosis: Bipolar Disorder vs Schizoaffective Disorder, Bipolar type Alcohol Use Disorder Cocaine use disorder Impression: 51-year-old male presents the context of alcohol withdrawal. He reports he started drinking again almost immediately after discharge from hospital. On this presentation he denies any symptoms of garrett or hypomania. He presents without complaint and declines any psychiatric interventions. Of note he had a low VPA level on admission indicating he was not taking his Depakote in the community. Provisional Treatment Plan: 1. Patient reports his preference to arrange for his own disposition and follow -up care which we agree with and will provide him any support he needs. Will discuss with social work. 2. Continue Depakote as currently ordered. Continue to monitor levels as necessary. 3. Continue CIWA, vitamin supplementation, & Ativan taper. Thank you for including psychiatry in this case, we will continue to follow only on an as-needed basis. A total of 60 minutes was spent with the patient with more than 50% of the time spent in counseling and/or coordination of care.
--- NOTE | 2016-12-21 15:44 | NUR ---
Sw into see pt who had just completed a walk around the unit with staff. ( This Sw saw pt at his first visit last week.) Pt quickly got in to beds and presented uncomfortable with restless legs and agitation. Sw enter pt's room and he reported "I have a follow up all take care of" Pt noted he willbe going to IOP at . Pt reported he had to cancellhis appointment from last detox because he needed to go to [facility] for business. Pt reported he would make a new one. Sw offered to help with a new apointment stating we should not wait because appointments could fill. Call to [facility] finds pt was a no show no call for his appointment. Chris asked if pt was still with his girlfriend and he said yes and she "fine with his problem because she get methadone from [facility]."
[2016-12-22] VITALS (7 sets, daily range): BP systolic 112–140; BP diastolic 70–90
--- NOTE | 2016-12-22 07:36 | PN- Housestaff ---
JAIMEE HERNÁNDEZ,[facility] 12/22/16 0736: Subjective Follow-up For: ETOH detox Anxiety tremor Complaints: Anxiety Subjective: Patient seen and examined. Slept well overnight. However still reports anxiety. reports mild chest discomfort, epigastric discomfort and headache 5/10 intensity. Denies nausea, vomiting, dizziness, lightheadedness, abdominal pain, urinary symptoms. CIWA scores ranging from 4 to maximum 23 for the past 24 hours, mostly for agitation and anxiety. On by mouth lorazepam 1 mg every 8 hours also receiving IV lorazepam per CIWA (received 2 mg last night and total 12 mg in last 24 hours ). Review of Systems Constitutional: Reports: see HPI. Denies: chills, fever, weakness. EENTM: Denies: visual changes, nasal congestion. Cardiovascular: Denies: chest pain, palpitations, syncope. Respiratory: Denies: cough, short of breath, sputum production. Gastrointestinal: Reports: abdominal pain. Denies: melena, nausea. Objective Last 24 Hrs of Vital Signs/I&O Vital Signs Date Time Temp Pulse Resp B/P B/P Pulse O2 O2 Flow FiO2 Mean Ox Delivery Rate 12/22 0653 97.6 63 20 140/90 96 Room Air 06/06 0400 98.8 80 20 128/90 06/06 0000 98.7 88 20 124/78 06/05 2214 98.7 78 20 124/88 93 06/05 2200 98.7 78 20 124/88 06/05 2000 98.1 92 18 140/100 06/05 1847 98.1 92 18 140/100 96 06/05 1425 97.6 68 20 120/60 98 Room Air /05 0938 83 128/76 06/05 0938 83 128/76 06/05 0938 83 128/76 Intake & Output 12/22 1600 06 0800 /06 0000 Intake Total 360 360 Output Total Balance 360 360 Intake, Oral 360 360 Physical Exam General Appearance: Alert, Oriented X3, Cooperative, No Acute Distress Skin: No Rashes Skin Temp/Moisture Exam: Warm/Dry Sepsis Skin Exam (color): Normal for Ethnicity HEENT: Atraumatic, PERRLA, EOMI, Mucous Membr. moist/pink Neck: Supple, No JVD, No thryomegaly Lymphatic: Cervical nl Cardiovascular: Regular Rate, Normal S1, Normal S2, No Murmurs Lungs: Clear to Auscultation, Normal Air Movement Abdomen: Normal Bowel Sounds, Soft, No Hepatospenomegaly, No Masses, Vague tenderness in epigastric and suprapubic regions Neurological: Normal Speech, Strength at 5/5 X4 Ext, Normal Tone Extremities: No Edema, Normal Pulses Assessment/Plan Assessment: The patient is a 51-year-old man with past medical history of alcohol abuse, alcohol withdrawal seizures including a prolonged hospitalization with an ICU admission for alcohol detox in [facility] in 2016, pancreatitis, hypertension, type 2 diabetes, and bipolar disorder. He also had an alcohol detox completed 3 days prior to admission. He returned for alcohol detox after relapsing 3 days prior to admission. His U tox is positive for cannabis, and cocaine. His antiseizure medication his valproate level is low, less than 10 suggesting that he might not have been taking this medication during his latest binge. He is admitted to the general medicine floor for alcohol detox. Problem list 1. Alcohol abuse for detoxification 2. History of alcohol withdrawal seizures 3. Hypertension 4. Diabetes mellitus 5. Bipolar disorder Plan: 1. Alcohol abuse for detoxification Continue IV Ativan as per CIWA protocol Taper PO ativan to 1 mg Q 12 hrs Continue with PO multivitamins, thiamine and folic acid daily Monitor electrolytes and relplete accordingly Psych consult recommendations appreciated rodding anode worker recommends for IOP referral at discharge 2. History of alcohol withdrawal seizures seizure precautions Watch for severe withdrawal and low threshhold for ativan drip 3. Hypertension Continue home medications for hypertension PO metoprolol 50 mg daily, by mouth hydrocodone) Dyazide 50 mg daily, by mouth amlodipine 10 mg daily 4. Diabetes mellitus Novolog sliding scale TIDAC/HS Accuchecks TIDAC/HS 5. Bipolar disorder Check depakote level this morning Continue Depakote 750 mg 3 times a day as admission depakote level was less than 10 and patient was likely not taking it during his recent binge DVT ppx SC lovenox Patient is full code Problem List: 1. Alcohol withdrawal 2. Hypertension 3. T2DM (type 2 diabetes mellitus) 4. Bipolar disorder Pain Ratin Pain Location: Abdomen Pain Goal: Remain pain free Pain Plan: Tylenol PRN Tomorrow's Labs & Rationales: None KOMAL OSBORNE 12/22/16 0911: Attending MD Review Statement Attending Statement Attending MD Statement: examined this patient, discuss w/resident/PA/ARMHOLE SEWER, agreed w/resident/PA/ARMHOLE SEWER, discussed with family, reviewed EMR data (avail), discussed with nursing, discussed with case mgmt, reviewed images, amended to note Attending Assessment/Plan: Patient's and examined, still feels shaky and anxious. CIWA scores are slightly better than yesterday. Vital signs are stable. Blood sugars are running in acceptable range. Recommended decreasing the Ativan to 1 mg q 12, continue when necessary Ativan. Continue current anti-hypertensive as well as insulin regimen. No further seizures. DVT px: Lovenox. Consulted SW placed.
--- NOTE | 2016-12-22 16:09 | Patient Discharge Instructions ---
Discharge Instructions General Discharge Information You were seen/treated for: Alcohol withdrawal Watch for these problems: Seizures, worsening headaches Special Instructions: 1. You don't have a primary care provider. You have been referred to [facility] at [address] [place] [address] for January 07 2017 at 3:15 pm. Please follow up with that appointment after discharge. 2. Please go for your appointment at the intensive outpatient program for alcohol, as you did not attend the last appointment scheduled for you. Diet Continue normal diet: No Recommended Diet: Regular Activity Full Activity/No Limits: No Activity Self Limited: Yes Acute Coronary Syndrome Inclusion Criteria At DC or during hospital stay patient has or had the following: ACS DIAGNOSIS No Discharge Core Measures Meds if any: Prescribed or Continued at Discharge Meds if any: NOT Prescribed or Continued at Discharge Congestive Heart Failure Inclusion Criteria At DC or during hospital stay patient has or had the following: CHF DIAGNOSIS No Discharge Core Measures Meds if any: Prescribed or Continued at Discharge Meds if any: NOT Prescribed or Continued at Discharge Cerebrovascular accident Inclusion Criteria At DC or during hospital stay patient has or had the following: CVA/TIA Diagnosis No Discharge Core Measures Meds if any: Prescribed or Continued at Discharge Meds if any: NOT Prescribed or Continued at Discharge Venous thromboembolism Inclusion Criteria VTE Diagnosis No VTE Type NONE VTE Confirmed by (Test) NONE (No DVT) Discharge Core Measures - Per Current guidelines, there needs to be overlap - treatment for the first 5 days of Warfarin therapy. - If discharged on Warfarin prior to 5 days of - overlap therapy, the patient will need to be - assessed for post discharge needs including - *Post discharge parental anticoagulation - *Warfarin and/or parental anticoagulation education - *Follow up date to check INR post discharge At least 5 days overlap therapy as Inpatient No (No DVT) Meds if any: Prescribed or Continued at Discharge Note: Overlap Therapy is Warfarin and Anticoagulant Meds if any: NOT Prescribed or Continued at Discharge
[2016-12-23] VITALS (7 sets, daily range): BP systolic 110–146; BP diastolic 80–94
--- NOTE | 2016-12-23 07:52 | PN- Housestaff ---
GILMAR HERNÁNDEZ,[facility] 12/23/16 0751: Subjective Follow-up For: ETOH detox EtOH withdrawal Complaints: no complaints Subjective: Feels a little better today but not yet up to his baseline. He slept very well last night Review of Systems Constitutional: Reports: no symptoms. Objective Last 24 Hrs of Vital Signs/I&O Vital Signs Date Time Temp Pulse Resp B/P B/P Pulse O2 O2 Flow FiO2 Mean Ox Delivery Rate 12/24 0747 61 146/80 12/23 0846 61 146/80 12/23 0846 61 146/80 / 0603 98.2 61 20 146/80 96 Room Air / 0600 98.2 61 18 146/80 06/07 0400 97.9 72 18 112/80 06/07 0200 97.9 72 18 112/80 /07 0000 97.9 72 18 112/80 /06 2230 97.9 72 20 112/80 97 /06 2200 98.0 74 20 130/70 06/06 2000 98.0 74 20 130/70 06/06 1413 98.0 74 20 130/70 97 Room Air Intake & Output 12/23 1600 12/23 0800 / 0000 Intake Total 120 200 Output Total Balance 120 200 Intake, Oral 120 200 Patient 210 lb Weight Physical Exam General Appearance: Alert, Oriented X3, Cooperative, No Acute Distress HEENT: PERRLA, EOMI, Mucous Membr. moist/pink Cardiovascular: Regular Rate, Normal S1, Normal S2 Lungs: Clear to Auscultation, Normal Air Movement Abdomen: Normal Bowel Sounds, Soft, No Tenderness Neurological: mild tremors in his hands Extremities: No Edema Current Medications: Current Medications Sig/Joaquin Start time Last Medication Dose Route Stop Time Status Admin Acetaminophen 650 MG Q6-PRN PRN 12/18 2215 AC PO Amlodipine Besylate 10 MG DAILY 12/18 1000 AC 12/23 PO 0846 Divalproex Sodium 750 MG TID 12/180 AC 12/23 PO 0847 Enoxaparin Sodium 40 MG DAILY 12/19 1000 AC 12/23 SC 0847 Folic Acid 1 MG DAILY 12/19 1000 AC 12/23 PO 0847 Hydrochlorothiazide 50 MG DAILY 12/18 1000 AC 12/23 PO 0846 Insulin Aspart 0 AT BEDTIME 12/19 2199 AC SC Insulin Aspart 0 TIDAC 12/19 0800 AC 12/23 SC 1148 Lorazepam 1 MG AT BEDTIME 12/23 2200 AC PO 12/24 2201 Lorazepam 2 MG Q2P PRN 12/23 1445 AC PO Lorazepam 1 MG Q2P PRN 12/23 1445 AC PO Lorazepam 1 MG Q1 NEEDED PRN 12/23 1315 DC PO Lorazepam 0 Q1P PRN 12/23 1145 DC 12/23 IV 1152 Lorazepam 1 MG ONE ONE 12/23 0800 DC 12/23 PO 12/23 0801 0846 Lorazepam 1 MG BID 12/22 2200 DC 12/22 PO 2200 Lorazepam 1 MG Q8 12/21 1400 DC 12/22 PO 1429 Lorazepam 0 Q1P PRN 12/18 2145 DC 12/23 IV 0519 Losartan Potassium 100 MG DAILY 12/18 1000 AC 12/23 PO 0847 Metoprolol Succinate 50 MG DAILY 12/19 1000 AC 12/23 PO 0846 Multivitamins 1 TAB DAILY 12/18 1000 AC 12/23 Therapeutic PO 0846 Omeprazole 40 MG DAILY 12/18 2158 AC 12/23 PO 0846 Patient Medication 1 ED .STK-MED ONE 12/23 1416 DC Teaching ED 12/23 1417 Thiamine HCl 100 MG DAILY 12/19 1000 AC 12/23 PO 0846 Lines/Diet/Fluids Lines: peripheral lines Assessment/Plan Assessment: The patient is a 51-year-old man with past medical history of alcohol abuse, alcohol withdrawal seizures including a prolonged hospitalization with an ICU admission for alcohol detox in [facility] in 2016, pancreatitis, hypertension, type 2 diabetes, and bipolar disorder. He also had an alcohol detox completed 3 days prior to admission. He returned for alcohol detox after relapsing 3 days prior to admission. His U tox is positive for cannabis, and cocaine. His antiseizure medication his valproate level is low, less than 10 suggesting that he might not have been taking this medication during his latest binge. He is admitted to the general medicine floor for alcohol detox. Problem list 1. Alcohol abuse here for detoxification 2. History of alcohol withdrawal seizures 3. Hypertension 4. Diabetes mellitus 5. Bipolar disorder Plan: 1. 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 History of alcohol withdrawal seizures seizure precautions Watch for severe withdrawal and low threshhold for ativan drip 3. Hypertension Continue home medications for hypertension PO metoprolol 50 mg daily, by mouth hydrocodone) Dyazide 50 mg daily, by mouth amlodipine 10 mg daily 4. Diabetes mellitus Overall Good control of BG Continue Novolog sliding scale TIDAC/HS Accuchecks TIDAC/HS 5. Bipolar disorder Continue Depakote 750 mg 3 times a day Last depakote level checked 2 days ago was normal at 85 DVT ppx SC lovenox Patient is full code Problem List: 1. Alcohol withdrawal Pain Ratin Pain Location: n/a Pain Goal: n/a Pain Plan: n/a Tomorrow's Labs & Rationales: none-stable labs KOMAL OSBORNE 12/23/16 0913: Attending MD Review Statement Attending Statement Attending MD Statement: examined this patient, discuss w/resident/PA/RN FLOAT, agreed w/resident/PA/RN FLOAT, discussed with family, reviewed EMR data (avail), discussed with nursing, discussed with case mgmt, reviewed images, amended to note Attending Assessment/Plan: Patient's and examined, feels better. CIWA scores are slightly better than yesterday. Vital signs are stable. Blood sugars are running in acceptable range. Patient non complaint with his appointment as o/p. Recommended decreasing the Ativan, continue when necessary Ativan. Continue current anti-hypertensive as well as insulin regimen. No further seizures. DVT px: Lovenox. Consulted SW.
[2016-12-23] MEDS ORDERED: ATIVAN1 M1 PO (11:41)
--- NOTE | 2016-12-23 17:13 | NUR ---
PT C/O GENERALIZED CHEST PAIN. STATES HE HAS BEEN HAVING THIS PAIN SINCE BEING ADMITTED TO THE HOSPITAL. TROPONIN AND EKG DONE ON ADMISSION. PO TYLENOL GIVEN FOR DISCOMFORT. DR. EVANS CALLED AND NOTIFIED. TROPONIN TO BE ORDERED.
--- NOTE | 2016-12-23 18:00 | NUR ---
PT STATES TYLENOL WAS EFFECTIVE FOR CONTROLLING HIS CHEST PAIN. PT ASSESSED BY DR. EVANS AT THE TIME OF COMPLAINT AND PER DR NO NEED FOR BLOOD WORK. MOTRIN X 1 ORDEREDD.
[2016-12-24 06:25] VITALS: BP 118/64
--- NOTE | 2016-12-24 07:58 | PN- Housestaff ---
GILMAR HERNÁNDEZ,RAINER 12/24/16 0758: Subjective Follow-up For: ETOH detox EtOH withdrawal Complaints: pain scale (0-10) (7) Subjective: Patient said to have complained of chest pain overnight. On examination patient chest pain was reproducible and he was given ibuprofen. This morning patient reports that pain persists, his midsternal and radiates to his mid upper back. He also reports a shortness of breath on exertion mild nausea, but no cough or palpitations. Of note, patient has been asking repeatedly if he can stay 1 or 2 more days since yesterday and now is the first thing he told me this morning. It is therefore unclear if he is actually in pain or just making it up to stay longer since he initially did not reveal that he had even had any chest pain over the course of the night or currently was having a 7/10 pain until I started asking probing questions. According to his nurse, his daughter called this morning to say that pt has no where to go. His family do not want him coming home but rather want him to go straight to inpatient rehabilitation from here. Review of Systems Constitutional: Reports: no symptoms. Objective Last 24 Hrs of Vital Signs/I&O Vital Signs Date Time Temp Pulse Resp B/P B/P Pulse O2 O2 Flow FiO2 Mean Ox Delivery Rate 12/24 0902 70 118/64 12/24 0901 70 118/64 12/24 0901 70 118/64 12/24 0625 98.4 70 20 118/64 95 Room Air 12/23 2155 98.0 78 22 120/82 92 Room Air 12/23 1418 97.7 75 20 110/94 94 Intake & Output 12/24 1600 12/24 0800 12/24 0000 Intake Total 100 100 Output Total Balance 100 100 Intake, Oral 100 100 Physical Exam General Appearance: Alert, Oriented X3, Cooperative, No Acute Distress HEENT: PERRLA, EOMI, Mucous Membr. moist/pink Cardiovascular: Regular Rate, Normal S1, Normal S2 Lungs: Clear to Auscultation, Normal Air Movement Abdomen: Normal Bowel Sounds, Soft, No Tenderness Neurological: mild tremors in the hands Extremities: No Edema, Normal Pulses Current Medications: Current Medications Sig/Joaquin Start time Last Medication Dose Route Stop Time Status Admin Acetaminophen 650 MG Q4P PRN 12/24 0845 DC PO Acetaminophen 650 MG .STK-MED ONE 12/23 1707 DC PO 12/23 1708 Acetaminophen 650 MG Q6-PRN PRN 12/18 2215 AC 12/23 PO 1706 Amlodipine Besylate 10 MG DAILY 12/18 1000 AC 12/24 PO 0901 Divalproex Sodium 750 MG TID 12/18 2200 AC 12/24 PO 0902 Enoxaparin Sodium 40 MG DAILY 12/19 1000 AC 12/24 SC 0901 Famotidine 20 MG DAILY 12/24 1000 AC PO Folic Acid 1 MG DAILY 12/19 1000 AC 12/24 PO 0901 Hydrochlorothiazide 50 MG DAILY 12/18 1000 AC 12/24 PO 0901 Ibuprofen 400 MG ONCE ONE 12/23 1730 DC 12/23 PO 12/23 1731 2106 Insulin Aspart 0 AT BEDTIME 12/19 2200 AC SC Insulin Aspart 0 TIDAC 12/19 0800 AC 12/23 SC 1148 Lorazepam 1 MG AT BEDTIME 12/23 2200 AC 12/23 PO 12/24 2201 2106 Lorazepam 2 MG Q2P PRN 12/23 1445 AC PO Lorazepam 1 MG Q2P PRN 12/23 1445 AC 12/23 PO 1449 Lorazepam 1 MG Q1 NEEDED PRN 12/23 1315 DC PO Lorazepam 0 Q1P PRN 12/23 1145 DC 12/23 IV 1152 Lorazepam 0 Q1P PRN 12/18 2145 DC 12/23 IV 0519 Losartan Potassium 100 MG DAILY 12/18 1000 AC 12/24 PO 0902 Metoprolol Succinate 50 MG DAILY 12/19 1000 AC 12/24 PO 0901 Multivitamins 1 TAB DAILY 12/18 1000 AC 12/24 Therapeutic PO 0901 Omeprazole 40 MG DAILY 12/18 2158 AC 12/24 PO 0901 Patient Medication 1 ED .STK-MED ONE 12/23 1416 DC Teaching ED 12/23 1417 Thiamine HCl 100 MG DAILY 12/19 1000 AC 12/24 PO 0901 Tramadol HCl 50 MG Q4P PRN 12/24 0915 AC PO Lines/Diet/Fluids Lines: peripheral lines Assessment/Plan Assessment: The patient is a 51-year-old man with past medical history of alcohol abuse, alcohol withdrawal seizures including a prolonged hospitalization with an ICU admission for alcohol detox in [facility] in 2016, pancreatitis, hypertension, type 2 diabetes, and bipolar disorder. He also had an alcohol detox completed 3 days prior to admission. He returned for alcohol detox after relapsing 3 days prior to admission. His U tox is positive for cannabis, and cocaine. His antiseizure medication his valproate level is low, less than 10 suggesting that he might not have been taking this medication during his latest binge. He is admitted to the general medicine floor for alcohol detox. Problem list 1. Alcohol abuse here for detoxification 2. History of alcohol withdrawal seizures 3. Hypertension 4. Diabetes mellitus 5. Bipolar disorder Plan: 1. Alcohol abuse for detoxification On Ativan taper by mouth and Ativan as per CIWA protocol-will be discharged on PO ativan 1mg QHS x 3 nights then stop. Continue with PO multivitamins, thiamine and folic acid daily Monitor electrolytes and relplete accordingly Psych consult recommendations appreciated grizzly worker recommends for IOP referral at discharge 2. History of alcohol withdrawal seizures seizure precautions Watch for severe withdrawal and low threshhold for ativan drip 3. Hypertension Continue home medications for hypertension PO metoprolol 50 mg daily, by mouth hydrocodone) Dyazide 50 mg daily, by mouth amlodipine 10 mg daily 4. Diabetes mellitus Overall Good control of BG Continue Novolog sliding scale TIDAC/HS Accuchecks TIDAC/HS Will resume his home meds on DC 5. Bipolar disorder Continue Depakote 750 mg 3 times a day Last depakote level checked 2 days ago was normal at 85 6. New onset of chest/epigastric pain last night-Pain radiates to back EKG and trop-Neg Likely caused by GERD Started on Famotidine 20mg BID DVT ppx SC lovenox Patient is full code Problem List: 1. Alcohol intoxication 2. Alcohol dependency Pain Ratin Pain Location: epigastrum Pain Goal: Remain pain free Pain Plan: Started on famotidine BID, tylenol PRN Tomorrow's Labs & Rationales: none KOMAL OSBORNE 12/24/16 1019: Attending MD Review Statement Attending Statement Attending MD Statement: examined this patient, discuss w/resident/PA/METAL FURNITURE GLAZIER, agreed w/resident/PA/METAL FURNITURE GLAZIER, discussed with family, reviewed EMR data (avail), discussed with nursing, discussed with case mgmt, reviewed images, amended to note Attending Assessment/Plan: Patient's and examined, feels better. CIWA scores are slightly better than yesterday. Vital signs are stable. Blood sugars are running in acceptable range. Patient non complaint with his appointment as o/p. complete ativan taper. Continue current anti-hypertensive as well as insulin regimen. Patient encouraged complaince with outpatient appointments. No further seizures. DVT px: Lovenox. Consulted SW. anticipate d/c soon
[2016-12-24 09:02] VITALS: BP 118/64
[2016-12-24] MEDS ORDERED: FOLIC ACID1 M1 PO ×2 (10:10→11:09)
[2016-12-24] MEDS ORDERED: FAMOTIDINE20 M1 PO ×3 (10:10→11:09)
[2016-12-24] MEDS ORDERED: VITAMIN B-1100 MG PO ×2 (10:10→11:09)
[2016-12-24] MEDS ORDERED: OMEPRAZOLE20 M2 PO (10:10)
--- NOTE | 2016-12-24 10:41 | NUR ---
PT REPORTED CHEST PAIN TO MD SCHAFER, EKG OBTAINED, TROPS DRAWN AND ULTRAM ADMINISTERED PER ORDER. PT IN BED, CALL MALAVE WITHIN REACH
[2016-12-24] MEDS ORDERED: ATIVAN1 M1 PO (11:09)
--- NOTE | 2016-12-24 13:52 | NUR ---
Sw into see pt for on going discharge planning. Pt continues to flip flop on whether or not he was going to go to IOP vs Rehab. Pt's family and girlfriend with whom he is staying, wants him to go to inpt rehab. Pt signed a release for sw to send infor to 5 rehabs which did not inculde [place], [place] , [facility] and [facility]. He would like [facility], [place], [facility], [facility], [facility]. Pt also signed a release for his dtr Asad. [birth year]42 who is "the smart one with a good job " age 24. We spoke about pt choice and she spoke about being done with enableing him and are nolonger helping him. sw also spoke with girlfriend on pt's phone when he handed it to sw. Pt was anxious to leave the hospital. he did not want to wait foranythinig reporting he would call the places we called and check on bed availablity. sw had suggested IOP while looking for a bed and pt thought that was a bad idea. Sw encoauerged it. Pt reports he will go to his mother's home and go to AA meeting daily until he gets into a program. AA meeting is across the street from mother's condo in [facility]. Pt depakote level was with donna glover and he reports he get it from his pcp in [place] and has plenty at home. Pt reports he has gone to [facility] in the past and may follow up here or there. During sw conversations pt was able to engage in a EKG and Labwork in a cooprative manner. he was anxious and demending that sw communicate with family andhis girlfirend. Sw set limits with getting into family girlfriend dynamics. Pt had a hard time sitting still always with his legs moving. he reports this is restless legs not withdrawal. Pt was future focused and goal focused. later sw learned pt could have gone to [facility] due to a bed becoming open except he did not have a PPd. sw to call Dtr Asad and ask her to hlep pt go to a walk in for PPd and then followup in the time frame for reading. Pt educated on options and that each detox is harder on the body. Pt asking for discharge and given resources to call for available bed. . from his mother
== END 2016-12-24 13:30 | DRG 774 ==
LOC: ERH 17:05 → 2NA 12-18 19:26 → ERHI 12-18 19:26 → ENRESERV 12-18 20:52 → ENTRNSPT 12-18 21:29 → 2NA 12-18 21:43 → CMPTRNSPT 12-18 21:51 → 2NA 12-21 10:35 → ENPENDDIS 12-24 11:12 → 2NA 12-24 13:30
PROVIDERS: Emergency Medicine; Internal Medicine; ADMIT Internal Medicine
DX: F10.239 Alcohol dependence with withdrawal, unspecified (principal); F14.10 Cocaine abuse, uncomplicated; F10.229 Alcohol dependence with intoxication, unspecified; F31.9 Bipolar disorder, unspecified; F12.90 Cannabis use, unspecified, uncomplicated; Y90.6 Blood alcohol level of 120-199 mg/100 ml; G40.509 Epileptic seizures related to external causes, not intractable, without status epilepticus; I10 Essential (primary) hypertension; F17.210 Nicotine dependence, cigarettes, uncomplicated; E11.9 Type 2 diabetes mellitus without complications; Z79.84 Long term (current) use of oral hypoglycemic drugs; K21.9 Gastro-esophageal reflux disease without esophagitis
CPT/HCPCS: 2NASP; 36415; 80307; 82436; 93005; 93010; G0480; J1650; J3490

== ENCOUNTER 2017-08-24 18:31 | Inpatient (IN) | payer OTHER ==
[~2017-08-24] VITALS: Ht 180.3 cm; Wt 101.6 kg
[~2017-08-24 18:31] MED LIST changes: +ATIVAN1 M1 PO; +FAMOTIDINE20 M1 PO
[2017-08-24 20:16] VITALS: BP 160/106
[2017-08-24 20:23] LABS: ABSOLUTE BASOPHIL COUNT 0 /CUMM (0.0-0.2); ABSOLUTE EOSINOPHIL COUNT 0 /CUMM (0.0-0.7); ABSOLUTE GRANULOCYTE CT 4.4 /CUMM (1.4-6.5); ABSOLUTE LYMPH COUNT 1.6 /CUMM (1.2-3.4); ABSOLUTE MONOCYTE COUNT 0.4 /CUMM (0.10-0.60); BASOPHIL % 0.3 % (0.0-2.0); EOSINOPHIL % 0.1 % (0-5); GRANULOCYTE % 68.4 % (42.2-75.2); HEMATOCRIT 51.8 % (42-52); MEAN CORPUSCULAR HGB CONC 33.9 G/DL (33.0-37.0); MEAN CORPUSCULAR VOLUME 88.3 FL (80.0-94.0); MEAN PLATELET VOLUME 7.6 FL (7.4-10.4); PLATELET COUNT 329 /CUMM (130-400); RBC DISTRIBUTION WIDTH 12.4 % (11.5-14.5); RED BLOOD CELL CT 5.86 /CUMM (4.70-6.10); WHITE BLOOD CELL COUNT 6.4 /CUMM (4.8-10.8)
--- NOTE | 2017-08-24 20:48 | ED PSYCHIATRIC COMPLAINT ---
History of Present Illness General Chief Complaint: Seizure Stated Complaint: SEIZURE ,ETOH Source: patient, old records, [facility] Exam Limitations: ANXIOUS Vital Signs & Intake/Output Vital Signs & Intake/Output Vital Signs Date Time Temp Pulse Resp B/P B/P Pulse O2 O2 Flow FiO2 Mean Ox Delivery Rate 08/25 0800 97.8 122 20 154/104 02/07 0753 154/104 02/07 0749 97.8 122 20 164/101 94 02/07 0653 98.2 112 20 170/98 94 Room Air 02/07 0651 98.2 112 20 170/98 02/07 0618 98.3 99 18 154/92 98 Room Air 02/ 0500 98.8 97 18 145/94 98 Room Air 02/ 0420 97.7 95 18 155/97 02/07 0345 97.7 95 18 155/97 95 Room Air / 0219 98.0 98 18 144/92 98 Room Air / 0215 98.0 98 18 144/92 02/07 0014 98.1 117 18 140/101 02/06 2359 98.1 117 18 140/101 02/06 2356 98.1 117 18 140/101 98 Room Air 02/ 2320 112 156/102 02/ 2320 112 156/102 / 2136 98.4 112 18 156/102 94 Room Air 08/24 2044 Room Air 08/24 2015 96.0 118 20 160/106 08/24 2004 96.0 118 20 160/106 94 Room Air ED Intake and Output / 0000 02/ 1200 Intake Total Output Total Balance Patient 225 lb Weight Allergies Coded Allergies: haloperidol (From HALDOL) (Severe, ANGIODEMA 12/17/16) olanzapine (From ZYPREXA) (Severe, ANGIODEMA 12/17/16) Reconcile Medications Amlodipine Besylate 10 MG TABLET 1 TAB PO DAILY HEART/BP (Reported) Hydrochlorothiazide 50 MG TABLET 1 TAB PO DAILY BP (Reported) Metformin HCl 1,000 MG TABLET 1 TAB PO BID DM (Reported) Metoprolol Succ XL (Toprol Xl) 50 MG TAB 1 TAB PO DAILY HTN (Reported) Trazodone HCl 50 MG TABLET 50 MG PO AT BEDTIME NEEDED PRN SLEEP Valproic Acid (Depakene) 250 MG CAPSULE 3 TAB PO TID mental health Valsartan (Diovan) 320 MG TABLET 1 TAB PO DAILY BP (Reported) Triage Note: PT TO ED REQUESTED ETOH DETOX. PMH OF ETOH WITHDRAWL SEIZURES. STATES WAS CLEAN FOR 8 MONTHS, RELAPSED A MONTH AGO, DRINKS "A GALLON OF VODKA" A DAY. DENIES SI/HI. C/O CHEST PAIN IN TRIAGE. TO [place] FOR EKG. PT YPERTENSIVE AND TACHYCARDIC. VERY ANXIOUS. ADMITS TO SMOKE COCAINE "A COUPLE OF WEEKS AGO" Triage Nurses Notes Reviewed? yes HPI: Patient presents for evaluation of multiple seizures today as he attempts to withdraw from alcohol. Patient states that he was sober for 8 months but about one month ago began drinking again. He states he drinks anywhere from 1/2-1 gallon of vodka daily. Is currently complaining of abdominal pain back pain and bilateral arm pain. He is having trouble holding still because of anxiety. In addition to the alcohol use he admits to cocaine use about 2 weeks ago and smokes one pack of cigarettes per day. (Rosemary HERNÁNDEZ,Juan Francisco Oh) Past History Travel History Traveled to [place] past 21 day No Medical History Any Pertinent Medical History? see below for history Neurological: seizure, (ALCOHOL WITHDRAWAL) EENT: 04/07/2016: trached Cardiovascular: hypertension, 02/2016: Hx 11 beat V tach Respiratory: failure to wean from vebt Gastrointestinal: GERD, pancreatitis Hepatic: cholelithiasis Renal: resolved PEPE Musculoskeletal: NONE Psychiatric: alcohol dependence, anxiety, bipolar disease, substance abuse ( cocaine/EtOH) Endocrine: diabetes Blood Disorders: NONE Cancer(s): NONE DISTRICT CAPTAIN/Reproductive: NONE History of MRSA: No History of VRE: No History of CDIFF: No Surgical History Surgical History: cholecystectomy, shoulder surgery Psychosocial History Who do you live with Family Services at Home None What is your primary language Icelandic Tobacco Use: Current Daily Use Daily Tobacco Use Amount/Type: => 5 Cigarettes daily ETOH Use: alcoholic Illicit Drug Use: cocaine Family History Family History, If Any: FATHER FH: diabetes mellitus Hx Contributory? No (Rosemary HERNÁNDEZ,Juan Francisco Oh) Review of Systems Review of Systems Constitutional: Reports: no symptoms. EENTM: Reports: no symptoms. Respiratory: Reports: no symptoms. Cardiovascular: Reports: no symptoms. GI: Reports: no symptoms. Genitourinary: Reports: no symptoms. Musculoskeletal: Reports: no symptoms. Skin: Reports: no symptoms. Neurological/Psychological: Reports: no symptoms, tonic-clonic seizures. Hematologic/Endocrine: Reports: no symptoms. Immunologic/Allergic: Reports: no symptoms. All Other Systems: Reviewed and Negative (Rosemary HERNÁNDEZ,Juan Francisco Oh) Physical Exam Physical Exam General Appearance: SEE BELOW Neurological/Psychiatric: SEE BELOW Comments: Gen.: Well-nourished, well-developed, no acute respiratory distress. Anxious and writhing on the stretcher. Head: Normocephalic, atraumatic. Eyes: Normal inspection bilaterally Ears: Normal inspection bilaterally Nose: Normal inspection Throat/mouth : Moist mucosa Neck: Supple, full range of motion, no goiter Heart: Regular rate and rhythm, no murmurs rubs or gallops Lungs: Clear to auscultation bilaterally with normal air entry Chest: Nontender Back: Normal range of motion Abdomen: Soft, nontender, nondistended, normal bowel sounds Extremities: Normal range of motion grossly, equal radial pulses, no cyanosis clubbing or edema, no tremors Neurologic: Cranial nerves grossly intact, speech is clear Skin: warm and dry Psychiatric: Calm, cooperative, no apparent delusions or hallucinations SAD PERSONS Done? patient not suicidal (Rosemary HERNÁNDEZ,Juan Francisco Oh) Progress Differential Diagnosis: ACUTE ALCOHOL WITHDRAWAL, ELECTROLYTE ABNORMALITY, DEHYDRATION, MALNUTRITION, LIVER DISEASE, DELIRIUM TREMENS Plan of Care: Orders Procedure Date/time Status Consistent Carbohydrate 2 08/25 L Active ED Holding Orders 08/25 912 Active Admit to inpatient 08/25 912 Active Vital Signs 08/25 912 Active Code Status 08/25 912 Active Pathway - chart 08/24 2119 Active Add-on Test (ER Only) 08/24 2048 Active PROTHROMBIN TIME 08/24 2015 Complete MAGNESIUM 08/24 2015 Complete EKG 08/24 2007 Active CIWA 08/24 1934 Active URINE DRUG SCREEN FOR ER ONLY 08/24 1934 Complete LIPASE 08/24 1934 Complete ETHANOL 08/24 1934 Complete COMPREHENSIVE METABOLIC PANEL 08/24 1934 Complete CBC WITHOUT DIFFERENTIAL 08/24 1934 Complete Current Medications Sig/Joaquin Start time Last Medication Dose Stop Time Status Admin Amlodipine Besylate 10 MG DAILY 08/25 1000 UNVr (Norvasc) Hydrochlorothiazide 50 MG DAILY 08/25 1000 UNVr (Hydrodiuril) Losartan Potassium 50 MG DAILY 08/25 1000 UNVr (Cozaar) Metoprolol Succinate 50 MG DAILY 08/25 1000 UNVr (Toprol Xl) Trazodone HCl 50 MG AT BEDTIME NEED.. 08/24 230 AC (Desyrel) Divalproex Sodium 750 MG TID 08/24 2246 UNVr 08/25 (Depakote) 0015 Metformin HCl 1,000 MG BID 08/24 2245 UNVr 08/25 (Glucophage) 001 Lorazepam 2 MG Q2P PRN 08/24 2129 AC 08/25 (Ativan) 0657 Lorazepam 1 MG Q2P PRN 08/24 2129 AC 08/25 (Ativan) 0810 Lorazepam 2 MG ONE ONE 08/24 2129 AC 08/24 (Ativan) 08/25 Laboratory Tests 08/24/171: Urine Opiates Screen < 100.00, Methadone Screen < 40, Barbiturate Screen < 60, Ur Phencyclidine Scrn < 6.00, Amphetamines Screen < 100, U Benzodiazepines Scrn < 85, Urine Cocaine Screen 99, Urine Cannabis Screen < 5.00 08/24/17 2016: Anion Gap 22 H, Estimated GFR > 60, BUN/Creatinine Ratio 18.9, Glucose 268 H, Calcium 10.1, Magnesium 1.4 L, Total Bilirubin 0.3, AST 77 H, ALT 117 H, Alkaline Phosphatase 76, Total Protein 7.8, Albumin 4.9, Globulin 2.9, Albumin/ Globulin Ratio 1.7, Lipase 156, PT 10.6, INR 1.01, CBC w Diff NO MAN DIFF REQ, RBC 5.86, MCV 88.3, MCH 30.0, MCHC 33.9, RDW 12.4, MPV 7.6, Gran % 68.4, Lymphocytes % 24.7, Monocytes % 6.5, Eosinophils % 0.1, Basophils % 0.3, Absolute Granulocytes 4.4, Absolute Lymphocytes 1.6, Absolute Monocytes 0.4, Absolute Eosinophils 0, Absolute Basophils 0, Serum Alcohol 238.0 7:10 AM PENDING HUSKY APPROVAL FOR DETOX 8:42 AM APPROVAL FOR INPATIENT DETOX. DR AUDREY GOTTI. (Kade HERNÁNDEZ,Joslyn) Comments: 08/24/2017 9:20:25 PM patient's case discussed with case management and preauthorization is commencing. Although patient appears somewhat less anxious and restless, he still seems uncomfortable. 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 (Rosemary HERNÁNDEZ,Juan Francisco Oh) Initial ED EKG: sinus tach, no acute changes Hand-Off Endorsed To: Joslyn Braun MD Endorsed Time: 0700 Pending: other (tremaineky approval) (Vic HERNÁNDEZ,Clement Patel) Departure Departure Disposition: STILL A PATIENT Condition: Stable Clinical Impression Primary Impression: Alcohol withdrawal seizure Secondary Impressions: Alcoholic hepatitis, Hypomagnesemia Referrals: Unknown Departure Forms: Customer Survey General Discharge Information (Rosemary HERNÁNDEZ,Juan Francisco Oh) Departure Comments 08/25/17, 4:17am.... pt is resting comfortably, on ciwa protocol... awaiting alee confirmation for admission. discussed with case management. (Vic HERNÁNDEZ,Clement Patel) Departure Time of Disposition: 0900 Admission Note Spoke With: Audrey HERNÁNDEZ,Marii Documentation of Exam: Documentation of any treatments & extenuating circumstances including Concerns Regarding Discharge (functional status, medication knowledge or non-compliance, living conditions, etc.) that warrant an admission rather than observation: [ CIWA MONTIOR, ATIVAN TAPER, SEIZURE PRECAUTIONS, MVI/FOLIC ACID, CONSIDER CRISIS CONSULTATION, POSSIBLE REHAB PLACEMENT] (Joslyn Braun MD) Critical Care Note Critical Care Note Critical Care Time: 30-74 min (Juan Francisco Riley MD)
[2017-08-24 21:05] LABS: PT 10.6 SEC (9.4-12.5)
[2017-08-24] MEDS ORDERED: METFORMIN HCL1000 M1 PO (22:10)
[2017-08-24] MEDS ORDERED: TOPROL XL50 M1 PO (22:11)
[2017-08-24 23:59] VITALS: BP 140/101
[2017-08-25] VITALS (8 sets, daily range): BP systolic 138–170; BP diastolic 81–104
--- NOTE | 2017-08-25 10:52 | History & Physical ---
Abdelrahman Jerry 08/25/17 1019: General Information and HPI MD Statement: I have seen and personally examined JB CORCORAN and documented this H&P. The patient is a 51 year old M who presented with a patient stated chief complaint of alcohol detox. Source of Information: patient, family Exam Limitations: clinical condition, intoxication History of Present Illness: Mr. Corcoran also is a 51-year-old gentleman with past medical history of alcohol overuse, alcohol withdrawal seizures including prolonged hospitalization requiring ICU admission in 2016, pancreatitis, hypertension, T2DM, and bipolar disorder. Patient presented to [facility] ED on the evening of 08/24/2017 after he had a witnessed seizure at home, episode lasting less than a minute. Patient has been on a 1 month binge, drinking heavily, approximately a liter of vodka every day. His last drink was yesterday, just before coming to the ED. At present, patient complains of a mild headache, nausea and midabdominal pain nonradiating-aggravated by eating. He also stated blurry vision upon presentation to ED yesterday, which has now resolved. He did admit to episodes of vomiting 3 yesterday, no blood in the vomitus. During the interview, he is drowsy but arousable and able to participate in a meaningful conversation. He states being depressed stating "I was sober for 8 months, stopped going to the AA meetings and I fell off the wagon last month". He denies any homicidal or suicidal ideation. He has not taken any of his medications including the seizure medications since last 3 days. Other systems reviewed and negative, exceptions above. Allergies/Medications Allergies: Coded Allergies: haloperidol (From HALDOL) (Severe, ANGIODEMA 12/17/16) olanzapine (From ZYPREXA) (Severe, ANGIODEMA 12/17/16) Past History Travel History Traveled to [place] past 21 day No Medical History Neurological: seizure, (ALCOHOL WITHDRAWAL) EENT: 04/07/2016: trached Cardiovascular: hypertension, 02/2016: Hx 11 beat V tach Respiratory: failure to wean from vebt Gastrointestinal: GERD, pancreatitis Hepatic: cholelithiasis Renal: resolved PEPE Musculoskeletal: NONE Psychiatric: alcohol dependence, anxiety, bipolar disease, substance abuse ( cocaine/EtOH) Endocrine: diabetes Blood Disorders: NONE Cancer(s): NONE REMELTER/Reproductive: NONE History of MRSA: No History of VRE: No History of CDIFF: No Surgical History Surgical History: cholecystectomy, shoulder surgery Past Family/Social History Family History Relations & Conditions if any FATHER FH: diabetes mellitus Psychosocial History Who Do You Live With? fiance Services at Home: None Primary Language: Amharic ETOH Use: alcoholic Illicit Drug Use: cocaine Living Will? unknown Power of Pickle Sorter/HCP? unknown Functional Ability ADLs Unknown: dressing, eating, toileting, bathing. 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 Review of Systems Review of Systems Constitutional: Reports: see HPI. Exam & Diagnostic Data Last 24 Hrs of Vital Signs/I&O Vital Signs Date Time Temp Pulse Resp B/P B/P Pulse O2 O2 Flow FiO2 Mean Ox Delivery Rate 08/25 1010 97.9 102 20 146/84 08/25 1008 97.9 102 20 146/84 95 Room Air 08/25 0928 97.8 108 20 154/104 08/25 0926 98.1 109 20 152/102 92 Room Air 08/25 0800 97.8 122 20 154/104 /07 0753 154/104 / 0749 97.8 122 20 164/101 94 / 0653 98.2 112 20 170/98 94 Room Air 02/ 0651 98.2 112 20 170/98 02/07 0618 98.3 99 18 154/92 98 Room Air 02/ 0500 98.8 97 18 145/94 98 Room Air / 0420 97.7 95 18 155/97 02/07 0345 97.7 95 18 155/97 95 Room Air 02/ 0219 98.0 98 18 144/92 98 Room Air 02/07 0215 98.0 98 18 144/92 02/07 0014 98.1 117 18 140/101 /06 9 98.1 117 18 140/101 /6 98.1 117 18 140/101 98 Room Air 08/24 2320 112 156/102 /0 112 156/102 08/24 2135 98.4 112 18 156/102 94 Room Air 08/244 Room Air 08/24 2015 96.0 118 20 160/106 08/24 2004 96.0 118 20 160/106 94 Room Air Intake & Output 08/25 1600 08/25 0800 08/25 0000 Intake Total Output Total 450 Balance -450 Output, Urine 450 Patient 225 lb Weight Physical Exam General Appearance Alert, Oriented X3, Cooperative Skin No Rashes, No Breakdown, No Significant Lesion Sepsis Skin Exam (color): Normal for Ethnicity HEENT Atraumatic, PERRLA, EOMI Cardiovascular Regular Rate, Normal S1, Normal S2 Lungs Clear to Auscultation, Normal Air Movement Abdomen Normal Bowel Sounds, tenderness to deep palpation in gastric area. Neurological Normal Gait, Normal Speech, Strength at 5/5 X4 Ext, no tremors noticed on outstretched hands. Extremities No Clubbing, No Cyanosis, No Edema Last 24 Hrs of Labs/Moi: Laboratory Tests 08/24/172150: Urine Opiates Screen < 100.00, Methadone Screen < 40, Barbiturate Screen < 60, Ur Phencyclidine Scrn < 6.00, Amphetamines Screen < 100, U Benzodiazepines Scrn < 85, Urine Cocaine Screen 99, Urine Cannabis Screen < 5.00 08/24/17 2016: Anion Gap 22 H, Estimated GFR > 60, BUN/Creatinine Ratio 18.9, Glucose 268 H, Hemoglobin A1c 7.8 H, Calcium 10.1, Magnesium 1.4 L, Total Bilirubin 0.3, AST 77 H, ALT 117 H, Alkaline Phosphatase 76, Total Protein 7.8, Albumin 4.9, Globulin 2.9, Albumin/Globulin Ratio 1.7, Amylase 78, Lipase 156, PT 10.6, INR 1.01, CBC w Diff NO MAN DIFF REQ, RBC 5.86, MCV 88.3, MCH 30.0, MCHC 33.9, RDW 12.4, MPV 7.6, Gran % 68.4, Lymphocytes % 24.7, Monocytes % 6.5, Eosinophils % 0.1, Basophils % 0.3, Absolute Granulocytes 4.4, Absolute Lymphocytes 1.6, Absolute Monocytes 0.4, Absolute Eosinophils 0, Absolute Basophils 0, Valproic Acid Pending, Serum Alcohol 238.0 Assessment/Plan Assessment: 51-year-old gentleman with history of alcohol overuse, alcohol withdrawal seizures in the past requiring ICU admission as well as intubation, is here requesting alcohol detox after 8 month period of sobriety and subsequent binge for the whole month of July. Serum alcohol upon presentation-238. Negative for opiates, cannabis or cocaine. 1. Alcohol withdrawal/impending DTs. Admit to general medicine floor. By mouth Ativan scheduled taper and IV Ativan per [facility] protocol. Thiamine, folate and MVI. Psychiatry evaluation. Social work consult. Please check Depakote levels. Restart Depakote. Mid abdominal pain-in the setting of normal lipase could represent gastritis from prolonged alcohol use and smoking. Hydration, oral PPI. Clear liquid diet, advance slowly as tolerated. Symptomatic care for nausea and vomiting. Also, complains of chest pain that is non-pleuritic, non-positional, left sided, present at rest. EKG shows Sinus tachy, likely related to withdrawal. Add on Troponin. 2. Transaminitis. Continue to monitor. Normal alkaline phosphatase and bilirubin. 3. Hypertension. Restart home medications. 4. T2 DM. Hold metformin. Accu-Cheks and insulin sliding scale. 5. Electrolyte disturbance. Continue to monitor BEP. Monitor and replete magnesium as necessary. Full code. Clear liquid diet. Lovenox for DVT prophylaxis. As Ranked By This Provider Problem List: 1. Alcohol withdrawal Core Measures/Misc (04/04) Acute Coronary Syndrome ACS Diagnosis: No Congestive Heart Failure Congestive Heart Failure Diagnosis No Cerebrovascular Accident CVA/TIA Diagnosis: No VTE (View Protocol) VTE Risk Factors Age>40 No Mechanical VTE Prophylaxis d/t N/A MechProphylax Ordered No VTE Pharm Prophylaxis d/t NA PharmProphylax ordered Sepsis (View protocol) Sepsis Present: No Barbie Ziegler MD 08/25/17 1223: General Information and HPI Allergies/Medications Home Med list Amlodipine Besylate 10 MG TABLET 1 TAB PO DAILY HEART/BP (Reported) Hydrochlorothiazide 50 MG TABLET 0.5 TAB PO DAILY BP (Reported) Metformin HCl 1,000 MG TABLET 1 TAB PO BID DM (Reported) Metoprolol Succ XL (Toprol Xl) 50 MG TAB 1 TAB PO DAILY HTN (Reported) Trazodone HCl 50 MG TABLET 50 MG PO AT BEDTIME NEEDED PRN SLEEP Valproic Acid (Depakene) 250 MG CAPSULE 3 TAB PO TID mental health Valsartan (Diovan) 320 MG TABLET 1 TAB PO DAILY BP (Reported) Attending MD Review Statement Attending Statement Attending MD Statement: examined this patient, discuss w/resident/PA/HAND ETCHER HELPER, agreed w/resident/PA/HAND ETCHER HELPER, reviewed EMR data (avail), discussed with nursing, discussed with case mgmt, amended to note Attending Assessment/Plan: 51 y/o M with pmh sig for alcohol overuse, alcohol withdrawal seizures including prolonged hospitalization requiring ICU admission in 2016, pancreatitis, hypertension, T2DM, and bipolar disorder, p/w alcohol intoxication. Patient also had a witnessed seizure yesterday. Patient claims that he had been sober for almost 8 months. He had started to drink again and for almost 3-4 weeks he is inking a gallon of vodka every day. He is also thinning of some abdominal pain and also had some nausea vomiting. No hematemesis. Denies any diarrhea. He is just getting very anxious at the moment. He is also complaining of chronic back pain. Vital Signs Date Time Temp Pulse Resp B/P B/P Pulse O2 O2 Flow FiO2 Mean Ox Delivery Rate 08/25 1155 97.8 107 24 166/110 92 Room Air 02/ 1010 97.9 102 20 146/84 02/07 1008 97.9 102 20 146/84 95 Room Air 02/07 0928 97.8 108 20 154/104 02/07 0926 98.1 109 20 152/102 92 Room Air 02/07 0800 97.8 122 20 154/104 02/07 0753 154/104 02/07 0749 97.8 122 20 164/101 94 02/07 0653 98.2 112 20 170/98 94 Room Air 02/07 0651 98.2 112 20 170/98 02/07 0618 98.3 99 18 154/92 98 Room Air 02/07 0500 98.8 97 18 145/94 98 Room Air 02/07 0420 97.7 95 18 155/97 02/07 0345 97.7 95 18 155/97 95 Room Air 02/07 0219 98.0 98 18 144/92 98 Room Air 02/07 0215 98.0 98 18 144/92 02/07 0014 98.1 117 18 140/101 02/06 2359 98.1 117 18 140/101 02/06 2356 98.1 117 18 140/101 98 Room Air 02/06 2320 112 156/102 02/06 2320 112 156/102 02/06 6 98.4 112 18 156/102 94 Room Air 02/06 2044 Room Air 08/24 2015 96.0 118 20 160/106 08/24 2004 96.0 118 20 160/106 94 Room Air on exam; aox3, looks anxious. cv; s1,s2 rrr resp; clear abd; soft, tender in epigastrium, bs+ ext; no edema. Laboratory Tests 08/24 Chemistry Sodium (137 - 145 mmol/L) 142 Potassium (3.5 - 5.1 mmol/L) 4.1 Chloride (98 - 107 mmol/L) 95 L Carbon Dioxide (22 - 30 mmol/L) 25 Anion Gap (5 - 16) 22 H BUN (9 - 20 mg/dL) 17 Creatinine (0.7 - 1.2 mg/dL) 0.9 Estimated GFR (>60 ml/min) > 60 BUN/Creatinine Ratio (7 - 25 %) 18.9 Glucose (65 - 99 mg/dL) 268 H Hemoglobin A1c (4.2 - 5.8 %) 7.8 H Calcium (8.4 - 10.2 mg/dL) 10.1 Magnesium (1.6 - 2.3 mg/dL) 1.4 L Total Bilirubin (0.2 - 1.3 mg/dL) 0.3 AST (17 - 59 U/L) 77 H ALT (21 - 72 U/L) 117 H Alkaline Phosphatase (< 127 U/L) 76 Troponin I (<0.11 ng/ml) < 0.01 Total Protein (6.3 - 8.2 g/dL) 7.8 Albumin (3.5 - 5.0 g/dL) 4.9 Globulin (1.9 - 4.2 gm/dL) 2.9 Albumin/Globulin Ratio (1.1 - 2.2 %) 1.7 Amylase (30 - 110 U/L) 78 Lipase (23 - 300 U/L) 156 Coagulation PT (9.4 - 12.5 SEC) 10.6 INR (0.90 - 1.17) 1.01 Hematology CBC w Diff NO MAN DIFF REQ WBC (4.8 - 10.8 /CUMM) 6.4 RBC (4.70 - 6.10 /CUMM) 5.86 Hgb (14.0 - 18.0 G/DL) 17.6 Hct (42 - 52 %) 51.8 MCV (80.0 - 94.0 FL) 88.3 MCH (27.0 - 31.0 PG) 30.0 MCHC (33.0 - 37.0 G/DL) 33.9 RDW (11.5 - 14.5 %) 12.4 Plt Count (130 - 400 /CUMM) 329 MPV (7.4 - 10.4 FL) 7.6 Gran % (42.2 - 75.2 %) 68.4 Lymphocytes % (20.5 - 51.1 %) 24.7 Monocytes % (1.7 - 9.3 %) 6.5 Eosinophils % (0 - 5 %) 0.1 Basophils % (0.0 - 2.0 %) 0.3 Absolute Granulocytes (1.4 - 6.5 /CUMM) 4.4 Absolute Lymphocytes (1.2 - 3.4 /CUMM) 1.6 Absolute Monocytes (0.10 - 0.60 /CUMM) 0.4 Absolute Eosinophils (0.0 - 0.7 /CUMM) 0 Absolute Basophils (0.0 - 0.2 /CUMM) 0 Toxicology Urine Opiates Screen (>2000 NG/ML) < 100.00 Methadone Screen (>300 NG/ML) < 40 Barbiturate Screen (>200 NG/ML) < 60 Valproic Acid (50 - 120 ug/mL) 15.7 L Ur Phencyclidine Scrn (>25 NG/ML) < 6.00 Amphetamines Screen (>1000 NG/ML) < 100 U Benzodiazepines Scrn (>200 NG/ML) < 85 Urine Cocaine Screen (>300 NG/ML) 99 Urine Cannabis Screen (>50 NG/ML) < 5.00 Serum Alcohol (<10 MG/DL) 238.0 EKG> Sinus rythm. A/P; 51 y/o M with pmh sig for alcohol overuse, alcohol withdrawal seizures including prolonged hospitalization requiring ICU admission in 2016, pancreatitis, hypertension, T2DM, and bipolar disorder, is admitted with acute alcohol intoxication. 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 Patient will be admitted to gen med. Will be starting on scheduled as well as prn ativan. Will be placed on thiamine. She will be continued on rest of his home meds. SSI for diabetes. DVt px; Lovenox. Full code.
[2017-08-26] VITALS (8 sets, daily range): BP systolic 114–157; BP diastolic 68–100
[2017-08-26 06:38] LABS: ABSOLUTE BASOPHIL COUNT 0 /CUMM (0.0-0.2); ABSOLUTE EOSINOPHIL COUNT 0.1 /CUMM (0.0-0.7); ABSOLUTE GRANULOCYTE CT 5.8 /CUMM (1.4-6.5); ABSOLUTE LYMPH COUNT 1.5 /CUMM (1.2-3.4); ABSOLUTE MONOCYTE COUNT 0.4 /CUMM (0.10-0.60); BASOPHIL % 0.4 % (0.0-2.0); EOSINOPHIL % 0.7 % (0-5); GRANULOCYTE % 74.7 % (42.2-75.2); HEMATOCRIT 47.1 % (42-52); MEAN CORPUSCULAR HGB 30.2 PG (27.0-31.0); MEAN CORPUSCULAR HGB CONC 34.6 G/DL (33.0-37.0); MEAN CORPUSCULAR VOLUME 87.3 FL (80.0-94.0); MEAN PLATELET VOLUME 7.7 FL (7.4-10.4); PLATELET COUNT 212 /CUMM (130-400); RBC DISTRIBUTION WIDTH 12.6 % (11.5-14.5); RED BLOOD CELL CT 5.39 /CUMM (4.70-6.10); WHITE BLOOD CELL COUNT 7.8 /CUMM (4.8-10.8)
--- NOTE | 2017-08-26 08:40 | PN- Housestaff ---
Cindy Villanueva 08/26/17 0839: Subjective Follow-up For: Alcohol withdrawal/impending DTs. Transaminitis Subjective: Patient is seen and examined this morning, appears drowsy. Reports nausea without any vomiting or abdominal discomfort. Still has bilateral hand tremors. CIWA scores in the last 24 hours(8, 6,5,3). Vitals are stable Review of Systems Constitutional: Denies: diaphoresis, fever, malaise. EENTM: Denies: blurred vision, double vision, visual changes. Cardiovascular: Denies: chest pain, edema, orthopena. Respiratory: Denies: hemoptysis, orthopnea. Gastrointestinal: Denies: abdominal pain, bloating, constipation. Genitourinary: Denies: discharge, dysuria. Musculoskeletal: Denies: back pain, gout. Skin: Denies: cysts, change in skin color, change in hair/nails. Objective Last 24 Hrs of Vital Signs/I&O Vital Signs Date Time Temp Pulse Resp B/P B/P Pulse O2 O2 Flow FiO2 Mean Ox Delivery Rate 08/26 0821 98.0 92 18 124/80 97 Room Air 02/08 0800 97.0 90 20 120/80 02/08 0800 98.0 90 20 120/80 97 Room Air 02/08 0621 97.5 94 18 114/83 94 Room Air 02/08 0610 97.5 94 18 114/83 02/08 0401 98.4 98 16 127/82 02/08 0400 98.4 98 16 127/82 95 Room Air Room Air 02/08 0200 98.6 108 20 157/98 02/08 0154 98.6 108 20 157/98 94 Room Air 02/07 2227 98.2 112 20 121/84 95 Room Air 02/07 1952 125 123/95 02/07 1905 98.2 112 18 141/107 94 Room Air 02/07 1745 112 20 142/86 02/07 1615 97.0 113 20 138/81 02/07 1615 97.0 113 20 138/81 91 Room Air 02/07 1412 97.5 113 22 147/106 92 Room Air 02/07 1220 102 21 155/93 93 Room Air 02/07 1155 97.8 107 24 166/110 92 Room Air 02/07 1010 97.9 102 20 146/84 02/07 1008 97.9 102 20 146/84 95 Room Air 08/25 927 97.8 108 20 154/104 08/25 925 98.1 109 20 152/102 92 Room Air Physical Exam General Appearance: Alert Skin: No Rashes, No Breakdown HEENT: Atraumatic, PERRLA Cardiovascular: Regular Rate, Normal S1, Normal S2 Lungs: Normal Air Movement Abdomen: Normal Bowel Sounds, Soft, No Tenderness Assessment/Plan Assessment: Patient is a 51-year-old gentleman with history of alcohol overuse, alcohol withdrawal seizures in the past requiring ICU admission as well as intubation, presented with ED requesting alcohol detox after 8 month period of sobriety and subsequent binge for the whole month of July. Vitals on admission temperature 96.0, pulse 118, respiratory 20, blood pressure 160/10 on room air air. Serum alcohol upon presentation-238. Negative for opiates, cannabis or cocaine. Problem list Alcohol withdrawal/impending DTs. Transaminitis Hyponatremia History of hypertension History of type 2 diabetes mellitus Plan Alcohol withdrawal/impending DTs with seizures * Continue to monitor patient on general floor. * Continue By mouth Ativan scheduled taper and IV Ativan per [facility] protocol. * Decrease scheduled Ativan to 1.5 mg every 6 today. * Continue with banana bag for now as patient is still nauseous. * Zofran as needed for nausea. * Continue with Depakote 750 mg 3 times a day. * Psychiatry evaluation. * Social work consult. * Continue with aspiration and seizure precautions. Transaminitis likely due to alcohol abuse * LFTs trending down today continue to monitor. Hyponatremia-likely due to dehydration from alcohol abuse * Will give normal saline with banana bag today. * Continue to monitor electrolytes. History of hypertension * Continue home medications. History of type 2 diabetes mellitus * Metformin on hold, * continue with NovoLog sliding scale with Accu-Cheks DVT prophylaxis with subcutaneous Lovenox Patient is full code Problem List: 1. Alcohol withdrawal seizure Pain Ratin Pain Location: no pain at this time Pain Goal: Remain pain free Pain Plan: When necessary Tylenol Tomorrow's Labs & Rationales: BEP tomorrow due to hyponatremia Barbie Ziegler MD 08/26/17 1130: Attending MD Review Statement Attending Statement Attending MD Statement: examined this patient, discuss w/resident/PA/RADIO SPORTSCASTER, agreed w/resident/PA/RADIO SPORTSCASTER, reviewed EMR data (avail), discussed with nursing, discussed with case mgmt, amended to note Attending Assessment/Plan: Patient seen and examined, withdrawing from alcohol. Continues to complete of abdominal pain. Patient on scheduled and when necessary Ativan. Vital Signs Date Time Temp Pulse Resp B/P B/P Pulse O2 O2 Flow FiO2 Mean Ox Delivery Rate 08/26 1124 97.8 74 22 116/68 02/08 1110 97.8 74 22 116/68 02/08 1110 97.8 74 22 116/68 02/08 1110 97.8 74 22 116/68 02/08 1109 97.8 74 22 116/68 98 02/08 0821 98.0 92 18 124/80 97 Room Air 02/08 0800 97.0 90 20 120/80 02/08 0800 98.0 90 20 120/80 97 Room Air 02/08 0621 97.5 94 18 114/83 94 Room Air 02/08 0610 97.5 94 18 114/83 02/08 0401 98.4 98 16 127/82 02/08 0400 98.4 98 16 127/82 95 Room Air Room Air 02/08 0200 98.6 108 20 157/98 02/08 0154 98.6 108 20 157/98 94 Room Air 02/07 2227 98.2 112 20 121/84 95 Room Air 02/07 1952 125 123/95 02/07 1905 98.2 112 18 141/107 94 Room Air 02/07 1745 112 20 142/86 02/07 1615 97.0 113 20 138/81 02/07 1615 97.0 113 20 138/81 91 Room Air 02/07 1412 97.5 113 22 147/106 92 Room Air 02/07 1220 102 21 155/93 93 Room Air 02/07 1155 97.8 107 24 166/110 92 Room Air on exam: aox3, nad. cv; s1, s2, rrr resp; clear abd: soft, tender in epigastrium, bs+ ext; no edema. Laboratory Tests 08/26 623 Chemistry Sodium (137 - 145 mmol/L) 134 L Potassium (3.5 - 5.1 mmol/L) 3.5 Chloride (98 - 107 mmol/L) 100 Carbon Dioxide (22 - 30 mmol/L) 22 Anion Gap (5 - 16) 12 BUN (9 - 20 mg/dL) 17 Creatinine (0.7 - 1.2 mg/dL) 0.8 Estimated GFR (>60 ml/min) > 60 BUN/Creatinine Ratio (7 - 25 %) 21.3 Phosphorus (2.5 - 4.5 mg/dL) 3.8 Magnesium (1.6 - 2.3 mg/dL) 1.6 Total Bilirubin (0.2 - 1.3 mg/dL) 1.1 Direct Bilirubin (< 0.4 mg/dL) 0.4 AST (17 - 59 U/L) 72 H ALT (21 - 72 U/L) 94 H Alkaline Phosphatase (< 127 U/L) 78 Total Protein (6.3 - 8.2 g/dL) 6.4 Albumin (3.5 - 5.0 g/dL) 3.7 Hematology CBC w Diff NO MAN DIFF REQ WBC (4.8 - 10.8 /CUMM) 7.8 RBC (4.70 - 6.10 /CUMM) 5.39 Hgb (14.0 - 18.0 G/DL) 16.3 Hct (42 - 52 %) 47.1 MCV (80.0 - 94.0 FL) 87.3 MCH (27.0 - 31.0 PG) 30.2 MCHC (33.0 - 37.0 G/DL) 34.6 RDW (11.5 - 14.5 %) 12.6 Plt Count (130 - 400 /CUMM) 212 MPV (7.4 - 10.4 FL) 7.7 Gran % (42.2 - 75.2 %) 74.7 Lymphocytes % (20.5 - 51.1 %) 19.4 L Monocytes % (1.7 - 9.3 %) 4.8 Eosinophils % (0 - 5 %) 0.7 Basophils % (0.0 - 2.0 %) 0.4 Absolute Granulocytes (1.4 - 6.5 /CUMM) 5.8 Absolute Lymphocytes (1.2 - 3.4 /CUMM) 1.5 Absolute Monocytes (0.10 - 0.60 /CUMM) 0.4 Absolute Eosinophils (0.0 - 0.7 /CUMM) 0.1 Absolute Basophils (0.0 - 0.2 /CUMM) 0 A/P: 51 y/o M with pmh sig for alcohol overuse, alcohol withdrawal seizures including prolonged hospitalization requiring ICU admission in 2016, pancreatitis, hypertension, T2DM, and bipolar disorder, is admitted with acute alcohol intoxication. Patient will be continued on scheduled and when necessary Ativan. Abdominal pain is likely secondary to alcoholic gastritis. Patient on Prilosec. We'll continue the patient on thiamine. We'll continue the rest of the medications. Patient's blood pressure improved. Continue the current antihypertensives. Patient on Lovenox for DVT prophylaxis. Social work consult is pending.
--- NOTE | 2017-08-26 14:14 | Discharge Summary ---
Visit Information Visit Dates Admission Date: 08/25/17 Discharge Date: 09/01/17 Hospital Course Course Attending Physician: Barbie Ziegler MD Primary Care Physician: Patient Has No Primary Care Dr Hospital Course: Patient is a 51-year-old gentleman with history of alcohol overuse, alcohol withdrawal seizures in the past requiring ICU admission as well as intubation, presented with ED requesting alcohol detox after 8 month period of sobriety and subsequent binge for the whole month of July. Vitals on admission temperature 96.0, pulse 118, respiratory 20, blood pressure 160/10 on room air air. Pertinent labs on admission : H&H stable no leukocytosis, serum alcohol level on admission -238. Negative for opiates, cannabis or cocaine. Transaminitis. Following problems were addressed while patient was on the [facility] floor: 1.Alcohol withdrawal/impending DTs with seizures: Patient was admitted to general floor. He received scheduled and as per needed Ativan per [facility] protocol. Thiamine folate and vitamin B12 was continued. geothermal sheet metal worker was obtained. Home dose of Depakote was continued. Aspiration and seizure precautions were maintained Patient's clinical and mental status improved during the hospitalization. 2.Endoscopic evidence of gastritis: Patient continued to have epigastric tenderness during the admission, with negative CAT scan and ultrasound results so GI consult was obtained, as per recommendations patient had upper endoscopy done that showed evidence of gastritis without erosion or hemorrhage with Probable taco esophagitis. Protonix was increased to 40 g twice a day.If the biopsies came positive for fungal infection, patient would be started on Diflucan 200 mg on day 1 then 100 mg daily for a total course of 14 days. 3.Transaminitis likely due to alcohol abuse. LFTs were closely monitored during the admission. 4.Hyponatremia-likely due to dehydration from alcohol abuse Improved on discharge 5. History of hypertension Home medications were continued 6.History of type 2 diabetes mellitus Metformin was held. Blood sugar levels were continued with NovoLog sliding scale with Accu-Cheks DVT prophylaxis with subcutaneous Lovenox Patient is full code Allergies: Coded Allergies: haloperidol (From HALDOL) (Severe, ANGIODEMA 12/17/16) olanzapine (From ZYPREXA) (Severe, ANGIODEMA 12/17/16) Disposition Summary Disposition Principal Diagnosis: 1.Alcohol withdrawal/impending DTs with seizures Additional Diagnosis: 2.Transaminitis likely due to alcohol abuse 3..Endoscopic evidence of gastritis: Discharge Disposition: home or self care Discharge Instructions General Discharge Information Code Status: Full Code Patient's Diet: Regular diet Patient's Activity: as tolerated Follow-Up Instructions/Appts: 1. Please follow-up with your primary care physician within 1-2 weeks of discharge Medications at Discharge Discharge Medications: Continue taking these medications: Valsartan (Diovan) 320 MG TABLET 1 Tablet ORAL DAILY Qty = 30 Comments: NOT GIVEN IN HOSPITAL; SUBSTIITUTE GIVEN 09/01/17 @1000AM Hydrochlorothiazide (Hydrochlorothiazide) 50 MG TABLET 0.5 Tablet ORAL DAILY Qty = 90 Comments: Last Taken: 09/01/17 Time: 1000AM Amlodipine Besylate (Amlodipine Besylate) 10 MG TABLET 1 Tablet ORAL DAILY Qty = 90 Comments: Last Taken: 09/01/17 Time: 1000 AM Valproic Acid (Depakene) 250 MG CAPSULE 3 Tablet ORAL THREE TIMES DAILY Qty = 60 Comments: Last Taken: 09/01/17 Time: 1000AM Trazodone HCl (Trazodone HCl) 50 MG TABLET 50 Milligram ORAL AT BEDTIME NEEDED as needed for SLEEP Qty = 30 Comments: NOT GIVEN IN HOSPITAL Metformin HCl (Metformin HCl) 1,000 MG TABLET 1 Tablet ORAL TWICE DAILY Qty = 60 Comments: NOT GIVEN IN HOSPITAL Metoprolol Succ XL (Toprol Xl) 50 MG TAB 1 Tablet ORAL DAILY Comments: Last Taken: 09/01/17 Time: 1000AM Start taking the following new medications: Pantoprazole Sodium (Protonix) 40 MG TABLET.DR 1 Tablet ORAL TWICE DAILY Qty = 30 No Refills Instructions: TAKE DIRECTED Comments: PRILOSEC GIVEN 09/01/17 @1000AM Fluconazole (Diflucan) 200 MG TABLET 0.5 Tablet ORAL DAILY Qty = 8 No Refills Instructions: TAKE 1 TAB ON 09/01/17 TAKE 0.5 TAB DAILY AFTER Comments: NOT GIVEN IN HOSPITAL Folic Acid (Folic Acid) 1 MG TABLET 1 Milligram ORAL DAILY Qty = 30 No Refills Comments: Last Taken: 09/01/17 Time: 1000AM Multivitamin (One Daily Multivitamin) 1 EACH TABLET 1 Tablet ORAL DAILY Qty = 30 No Refills Comments: Last Taken: 09/01/17 Time: 1000AM Thiamine HCl (Vitamin B-1) 100 MG TABLET 100 Milligram ORAL DAILY Qty = 30 No Refills Comments: Last Taken: 09/01/17 Time: 1000AM Copies To: Eamon HERNÁNDEZ,Lloyd Phan
[2017-08-27] VITALS (10 sets, daily range): BP systolic 122–144; BP diastolic 72–100
--- NOTE | 2017-08-27 07:31 | PN- Housestaff ---
Cindy Villanueva 08/27/17 0731: Subjective Follow-up For: Alcohol withdrawal/impending DTs. Transaminitis Subjective: Patient is seen and examined this morning, seems very jittery, with visible bilateral tremors was very nauseous in the morning, complaining of diffuse abdominal discomfort. Vitals are stable. Patient required 11 mg of IV Ativan overnight in addition to scheduled Ativan. CIWA scores were high Review of Systems Constitutional: Denies: chills, diaphoresis, fever, malaise. EENTM: Denies: blurred vision, double vision, eye pain. Cardiovascular: Denies: chest pain, edema, orthopena. Respiratory: Denies: cough, hemoptysis, orthopnea. Gastrointestinal: Denies: abdominal pain, bloating, constipation. Genitourinary: Denies: discharge, dysuria, frequency. Objective Last 24 Hrs of Vital Signs/I&O Vital Signs Date Time Temp Pulse Resp B/P B/P Pulse O2 O2 Flow FiO2 Mean Ox Delivery Rate 08/27 1100 90 18 140/86 08/27 1000 98.9 102 20 140/90 08/27 0959 102 140/90 08/27 0958 102 140/90 08/27 0956 102 140/90 08/27 0905 100 18 144/98 08/27 0400 98.4 115 20 140/86 08/27 0000 98.0 123 24 140/100 08/27 0000 95 Room Air 08/26 2200 97.9 116 20 144/100 93 Room Air 08/26 1802 94 Room Air 08/26 1800 97.9 107 20 140/80 08 1800 97.9 107 20 140/80 94 Room Air 08/26 1715 97.9 102 19 133/64 96 Room Air 08/26 1627 97.9 111 20 127/92 97 Room Air 08/26 1519 99 19 95 Room Air 08/26 1507 99.0 125 22 131/83 0208 1404 98.7 96 18 141/87 96 Room Air Intake & Output 08/27 1600 08/27 0800 08/27 0000 Intake Total 525 975 Output Total 300 Balance 525 675 Intake, IV 325 375 Intake, Oral 200 600 Output, Urine 300 Patient 224 lb Weight Weight Bed scale Measurement Method Physical Exam General Appearance: Alert, Oriented X3 Skin: No Rashes, No Breakdown Skin Temp/Moisture Exam: Warm/Dry HEENT: Atraumatic, PERRLA, Mucous Membr. moist/pink Neck: Supple, No JVD Cardiovascular: Regular Rate, Normal S1, Normal S2 Lungs: Clear to Auscultation, Normal Air Movement Current Medications: Current Medications Sig/Joaquin Start time Last Medication Dose Route Stop Time Status Admin Al Hydroxide/Mg 30 ML Q6P PRN 08/25 1015 AC Hydroxide PO Amlodipine Besylate 10 MG DAILY 08/25 1000 AC 08/27 PO 0958 Cyanocobalamin/ 1 BAG ONCE ONE 08/26 0900 DC 08/26 Thiamine/Pyridoxine IV 08/26 1659 1045 Sodium Chloride 1,000 ML Divalproex Sodium 750 MG TID 08/25 1600 AC 08/27 PO 0955 Enoxaparin Sodium 40 MG DAILY 08/26 1000 AC 08/27 SC 0957 Folic Acid 1 MG DAILY 08/26 1000 AC 08/27 PO 0956 Hydrochlorothiazide 50 MG DAILY 08/25 1000 AC 08/27 PO 0956 Insulin Aspart 0 TIDAC 08/25 1200 AC 08/27 SC 0853 Lactated Ringer's 1,000 ML Q13H 08/27 1000 AC 08/27 IV 1017 Lorazepam 0.5 MG ONCE 09/01 0000 AC PO 09/01 0001 Lorazepam 0.5 MG Q6H 08/31 0000 AC PO 08/31 1801 Lorazepam 0.5 MG ONCE ONE 08/30 1800 AC PO 08/30 1801 Lorazepam 1 MG Q6H 08/30 0000 AC PO 08/30 1201 Lorazepam 1.5 MG Q12H 08/29 0600 AC PO 08/29 1801 Lorazepam 1 MG Q12H 08/29 0000 AC PO 08/29 1201 Lorazepam 0.5 MG ONCE ONE 08/28 1800 DC PO 08/28 1801 Lorazepam 1.5 MG Q6 08/28 0600 AC PO 08/28 1801 Lorazepam 1 MG Q6H 08/28 0000 DC PO 08/28 1201 Lorazepam 2 MG Q6 08/27 1200 AC 08/27 PO 08/28 0001 1125 Lorazepam 2 MG Q2P PRN 08/27 1015 AC IV Lorazepam 1 MG Q2P PRN 08/27 1015 AC IV Lorazepam 1.5 MG Q6H 08/27 0800 DC 08/27 PO 08/27 2000 0854 Lorazepam 1 MG ONE ONE 08/26 1930 DC 08/26 PO 08/26 193 1933 Lorazepam 0 .STK-MED ONE 08/26 1742 DC PO Lorazepam 0 .STK-MED ONE 08/26 1635 DC .ROUTE Lorazepam 0 .STK-MED ONE 08/26 1507 DC .ROUTE Lorazepam 1.5 MG Q6 08/26 0600 DC 08/26 PO 08/26 1801 1741 Lorazepam 2 MG Q1P PRN 08/25 1830 DC 08/27 IV 1006 Lorazepam 1 MG Q2P PRN 08/24 2130 DC 08/26 IV 2218 Losartan Potassium 50 MG DAILY 08/25 1000 AC 08/27 PO 0956 Metoprolol Succinate 50 MG DAILY 08/25 1000 AC 08/27 PO 0959 Morphine Sulfate 2 MG ONCE ONE 08/27 1000 DC IV 08/27 1001 Morphine Sulfate 15 MG ONCE ONE 08/26 1930 DC 08/26 PO 08/26 193 1933 Morphine Sulfate 15 MG .STK-MED ONE 08/26 1930 DC PO 08/26 1931 Morphine Sulfate 2 MG Q6-PRN PRN 08/25 1030 AC 08/26 IV 2103 Multivitamins 1 TAB DAILY 08/26 1000 AC 08/27 PO 0959 Nicotine 14 MG DAILY 08/25 1012 AC 08/27 TOP 0957 Omeprazole 40 MG DAILY 08/26 1000 AC 08/27 PO 0958 Ondansetron HCl 4 MG Q6P PRN 08/27 1000 AC IV Ondansetron HCl 4 MG ONCE ONE 08/27 0345 DC 08/27 IV 08/27 0346 0344 Ondansetron HCl 0 .STK-MED ONE 08/26 1500 DC PO Ondansetron HCl 4 MG Q8P PRN 08/26 0900 DC 08/26 PO 1457 Thiamine HCl 100 MG DAILY 08/25 1012 AC 08/27 PO 0959 Trazodone HCl 50 MG AT BEDTIME NEED.. 08/24 2300 AC PO Trimethobenzamide HCl 200 MG ONCE ONE 08/27 0800 DC 08/27 IM 08/27 0801 0859 Trimethobenzamide HCl 200 MG ONCE ONE 08/27 0430 DC IM 08/27 0431 Last 24 Hrs of Lab/Moi Results Last 24 Hrs of Labs/Mics: Laboratory Tests 08/27/17 1022: TSH Cancelled 08/27/17 0807: Anion Gap 16, Estimated GFR > 60, BUN/Creatinine Ratio 21.1, Troponin I < 0.01, TSH 0.806, Valproic Acid 55.2 08/27/17 0430: Troponin I Cancelled Assessment/Plan Assessment: Patient is a 51-year-old gentleman with history of alcohol overuse, alcohol withdrawal seizures in the past requiring ICU admission as well as intubation, presented with ED requesting alcohol detox after 8 month period of sobriety and subsequent binge for the whole month of July. Vitals on admission temperature 96.0, pulse 118, respiratory 20, blood pressure 160/10 on room air air. Serum alcohol upon presentation-238. Negative for opiates, cannabis or cocaine. Problem list Alcohol withdrawal/impending DTs. Transaminitis Hyponatremia History of hypertension History of type 2 diabetes mellitus Plan Alcohol withdrawal/impending DTs with seizures * Continue to monitor patient on general floor. * Continue By mouth Ativan scheduled taper and IV Ativan per CIWA protocol. * Patient required 11 mg of IV Ativan overnight in addition to scheduled Ativan. CIWA scores were high. * Continue with scheduled Ativan to 1.5 mg every 6 today. * As patient is nauseous we will keep him nothing by mouth for now and start the patient on Ringer lactate * Due to the concerns of abdominal pain,will do a abdominal ultrasound to rule out any liver/biliary pathology. If patient continues to remain symptomatic and ultrasound results are negative will consider CT abdomen and pelvis to rule out any underlying pathology/etiology, * Zofran as needed for nausea . * Continue with Depakote 750 mg 3 times a day. * Psychiatry evaluation. * Social work consult. * Continue with aspiration and seizure precautions. Transaminitis likely due to alcohol abuse * LFTs trending down today continue to monitor. Hyponatremia-likely due to dehydration from alcohol abuse * Will give normal saline with banana bag today. * Continue to monitor electrolytes. History of hypertension * Continue home medications. History of type 2 diabetes mellitus * Metformin on hold, * continue with NovoLog sliding scale with Accu-Cheks DVT prophylaxis with subcutaneous Lovenox Patient is full code Problem List: 1. Alcohol withdrawal seizure Pain Ratin Pain Location: Diffuse abdominal pain Pain Goal: Remain pain free Pain Plan: PRN MORPHINE Tomorrow's Labs & Rationales: cbc Toney MD,Barbie 08/27/17 1117: Attending MD Review Statement Attending Statement Attending MD Statement: examined this patient, discuss w/resident/PA/BOTTLE ASSEMBLER, agreed w/resident/PA/BOTTLE ASSEMBLER, reviewed EMR data (avail), discussed with nursing, discussed with case mgmt, reviewed images, amended to note Attending Assessment/Plan: Patient seen and examined, he is actively withdrawing. He is shaky and anxious. He continues to complain of feeling nauseous, dry heaving and abdominal pain. Vital Signs Date Time Temp Pulse Resp B/P B/P Pulse O2 O2 Flow FiO2 Mean Ox Delivery Rate 08/27 1100 90 18 140/86 08/27 1000 98.9 102 20 140/90 08/27 0959 102 140/90 08/27 0958 102 140/90 08/27 0956 102 140/90 08/27 0905 100 18 144/98 08/27 0400 98.4 115 20 140/86 08/27 0000 98.0 123 24 140/100 08/27 0000 95 Room Air 08/26 2200 97.9 116 20 144/100 93 Room Air 08/26 1802 94 Room Air 08/26 1800 97.9 107 20 140/80 02/08 1800 97.9 107 20 140/80 94 Room Air 08/26 1715 97.9 102 19 133/64 96 Room Air 08/26 1627 97.9 111 20 127/92 97 Room Air 08/26 1519 99 19 95 Room Air 08/26 1507 99.0 125 22 131/83 08/26 1404 98.7 96 18 141/87 96 Room Air 08/26 1124 97.8 74 22 116/68 on exam; awake, sjaking, dry heaving. cv; s1, s2, rrr resp; clear abd; soft, tender generalized, bs+ ext; no edema. Laboratory Tests 08/27 08/27 08/27 1022 0807 0430 Chemistry Sodium (137 - 145 mmol/L) 136 L Potassium (3.5 - 5.1 mmol/L) 3.7 Chloride (98 - 107 mmol/L) 95 L Carbon Dioxide (22 - 30 mmol/L) 24 Anion Gap (5 - 16) 16 BUN (9 - 20 mg/dL) 19 Creatinine (0.7 - 1.2 mg/dL) 0.9 Estimated GFR (>60 ml/min) > 60 BUN/Creatinine Ratio (7 - 25 %) 21.1 Troponin I (<0.11 ng/ml) Pending Cancelled TSH (0.270 - 4.200 uIU/mL) Cancelled Pending Toxicology Valproic Acid (50 - 120 ug/mL) Pending A/P; 51 y/o M with pmh sig for alcohol overuse, alcohol withdrawal seizures including prolonged hospitalization requiring ICU admission in 2016, pancreatitis, hypertension, T2DM, and bipolar disorder, is admitted with acute alcohol intoxication. Patient continues to complain of abdominal pain with nausea and dry heaving. This all could be secondary to alcoholic gastritis but there is also possibility of acute pancreatitis although his lipase on admission was not high. At this point will keep patient nothing by mouth and start the patient on Ringers lactate. Patient will be treated with symptomatic treatment with analgesics as well as antiemetics. Continue Ativan scheduled as well as when necessary. Continue thiamine and other current medications. Patient will be getting abdominal ultrasound to look for gallbladder and biliary tree. If nondiagnostic, will consider doing a CAT scan of the abdomen and pelvis. Appreciate psych input. DVT prophylaxis: Lovenox.
--- NOTE | 2017-08-27 11:11 | Cons- Psychiatry ---
Psychiatric Consult Date of Consult: 08/27/17 Reason for Consult: Originally "Depression." Now medical team is requesting assistance with alcohol detox medication management. Note: SMT OPERATOR is following the patient for aftercare, psychiatric and substance abuse. History of Present Illness: 51 M presented to the ED on 08/24/17 @ 2009 with a CC of requesting alcohol detox. Per the traige note, clean for 8 months, now drinking a gallon of vodka per day since onemonth ago.. PMHx of detox seizures. Dr. Riley had determined that the patient had not been taking his Depakote or cardiac meds. Utox 08/24/17: Valproic acid 15.7L, AG 22, glucose 268, A1c 7.8, magnesium 1.4L, total bilirubin 0.3N, AST 77H, ALT 117H, amylase 78N, lipase 156N Serum alcohol 08/24/17: 238. As of 08/27/17 @ 0950: lorazepam 3 mg scheduled and 12 mg PRN/One time = 15 mg total/last 24 hours. CIWA 08/27/17 @ 1000: 83-56-72-1-78-61-1-98-8-4-54-9-8-0-2-5-10-15-1-2 VS 08/27/17 @ 1000: 140/90, 102HR, 20RR on RA, 98.9 Allergies: Coded Allergies: haloperidol (From HALDOL) (Severe, ANGIODEMA 12/17/16) olanzapine (From ZYPREXA) (Severe, ANGIODEMA 12/17/16) Current Medications: Current Medications Sig/Joaquin Start time Last Medication Dose Route Stop Time Status Admin Al Hydroxide/Mg 30 ML Q6P PRN 08/25 1015 AC Hydroxide PO Amlodipine Besylate 0 .STK-MED ONE 08/26 1105 DC PO Amlodipine Besylate 10 MG DAILY 08/25 1000 AC 08/27 PO 0958 Cyanocobalamin/ 1 BAG ONCE ONE 08/26 0900 DC 08/26 Thiamine/Pyridoxine IV 08/26 1659 1045 Sodium Chloride 1,000 ML Divalproex Sodium 750 MG TID 08/25 1600 AC 08/27 PO 0955 Enoxaparin Sodium 40 MG DAILY 08/26 1000 AC 08/27 SC 0957 Folic Acid 1 MG DAILY 08/26 1000 AC 08/27 PO 0956 Hydrochlorothiazide 50 MG DAILY 08/25 1000 AC 08/27 PO 0956 Insulin Aspart 0 TIDAC 08/25 1200 AC 08/27 SC 0853 Lactated Ringer's 1,000 ML Q13H 08/27 1000 AC 08/27 IV 1017 Lorazepam 0.5 MG ONCE 09/01 0000 UNVr PO 09/01 0001 Lorazepam 0.5 MG Q6H 08/31 0000 UNVr PO 08/31 1801 Lorazepam 0.5 MG ONCE ONE 08/30 1800 UNVr PO 08/30 1801 Lorazepam 1 MG Q6H 08/30 0000 UNVr PO 08/30 1201 Lorazepam 1.5 MG Q12H 08/29 0600 UNVr PO 08/29 1801 Lorazepam 1 MG Q12H 08/29 0000 UNVr PO 08/29 1201 Lorazepam 0.5 MG ONCE ONE 08/28 1800 DC PO 08/28 1801 Lorazepam 1.5 MG Q6 08/28 0600 UNVr PO 08/28 1801 Lorazepam 1 MG Q6H 08/28 0000 DC PO 08/28 1201 Lorazepam 2 MG Q6 08/27 1200 UNVr PO 08/28 0001 Lorazepam 2 MG Q2P PRN 08/27 1015 UNVr IV Lorazepam 1 MG Q2P PRN 08/27 1015 UNVr IV Lorazepam 1.5 MG Q6H 08/27 0800 DC 08/27 PO 08/27 2000 0854 Lorazepam 1 MG ONE ONE 08/26 1930 DC 08/26 PO 08/26 1931 1933 Lorazepam 0 .STK-MED ONE 08/26 1742 DC PO Lorazepam 0 .STK-MED ONE 08/26 1635 DC .ROUTE Lorazepam 0 .STK-MED ONE 08/26 1507 DC .ROUTE Lorazepam 0 .STK-MED ONE 08/26 1154 DC PO Lorazepam 1.5 MG Q6 08/26 0600 DC 08/26 PO 08/26 1801 1741 Lorazepam 2 MG Q1P PRN 08/25 1830 DC 08/27 IV 1006 Lorazepam 1 MG Q2P PRN 08/24 2130 DC 08/26 IV 2218 Losartan Potassium 50 MG DAILY 08/25 1000 AC 08/27 PO 0956 Metoprolol Succinate 50 MG DAILY 08/25 1000 AC 08/27 PO 0959 Morphine Sulfate 2 MG ONCE ONE 08/27 1000 DC IV 08/27 1001 Morphine Sulfate 15 MG ONCE ONE 08/26 1930 DC 08/26 PO 08/26 1931 1933 Morphine Sulfate 15 MG .STK-MED ONE 08/26 1930 DC PO 08/26 1931 Morphine Sulfate 2 MG Q6-PRN PRN 08/25 1030 AC 08/26 IV 2103 Multivitamins 1 TAB DAILY 08/26 1000 AC 08/27 PO 0959 Nicotine 0 .STK-MED ONE 08/26 1155 DC TOP Nicotine 14 MG DAILY 08/25 1012 AC 08/27 TOP 0957 Omeprazole 40 MG DAILY 08/26 1000 AC 08/27 PO 0958 Ondansetron HCl 4 MG Q6P PRN 08/27 1000 AC IV Ondansetron HCl 4 MG ONCE ONE 08/27 0345 DC 08/27 IV 08/27 0346 0344 Ondansetron HCl 0 .STK-MED ONE 08/26 1500 DC PO Ondansetron HCl 4 MG Q8P PRN 08/26 0900 DC 08/26 PO 1457 Potassium Chloride 0 .STK-MED ONE 08/26 1245 DC PO Potassium Chloride 40 MEQ ONCE ONE 08/26 1200 DC 08/26 PO 08/26 1201 1306 Thiamine HCl 100 MG DAILY 08/25 1012 AC 08/27 PO 0959 Trazodone HCl 50 MG AT BEDTIME NEED.. 08/24 2300 AC PO Trimethobenzamide HCl 200 MG ONCE ONE 08/27 0800 DC 08/27 IM 08/27 0801 0859 Trimethobenzamide HCl 200 MG ONCE ONE 08/27 0430 DC IM 08/27 0431 Past History Past Medical History Neurological: seizure, (ALCOHOL WITHDRAWAL) EENT: 04/07/2016: trached Cardiovascular: hypertension, 02/2016: Hx 11 beat V tach Respiratory: failure to wean from vebt Gastrointestinal: GERD, pancreatitis Hepatic: cholelithiasis Renal: resolved PEPE Musculoskeletal: NONE Psychiatric: alcohol dependence, anxiety, bipolar disease, substance abuse ( cocaine/EtOH) Endocrine: diabetes Blood Disorders: NONE Cancer(s): NONE ORGANIZATIONAL DEVELOPMENT SPECIALIST/Reproductive: NONE Past Surgical History Surgical History: cholecystectomy, shoulder surgery Psychosocial History Strengths/Capabilities: Treatment motivated Physical Limitations (Interventions): Current withdrawal syndrome Psychiatric Treatment History Psych Treatment Psychiatric Treatment Yes Inpatient Treatment No Outpatient Treatment Yes Location of Treatment [facility] [place], PCP prescribes Depakote? 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 He is calm, resting comfortably and under observation by nursing. We will revisit the patient when he is awake. Lab Results: Laboratory Tests 08/27 0807 Chemistry Sodium (137 - 145 mmol/L) 136 L Potassium (3.5 - 5.1 mmol/L) 3.7 Chloride (98 - 107 mmol/L) 95 L Carbon Dioxide (22 - 30 mmol/L) 24 Anion Gap (5 - 16) 16 BUN (9 - 20 mg/dL) 19 Creatinine (0.7 - 1.2 mg/dL) 0.9 Estimated GFR (>60 ml/min) > 60 BUN/Creatinine Ratio (7 - 25 %) 21.1 Toxicology Valproic Acid (50 - 120 ug/mL) Pending Diffential Diagnosis: Bipolar Disorder vs Schizoaffective Disorder, Bipolar type Alcohol Use Disorder Impression: The patient has had a waxing and waning course of treatment for alcohol detox. He has a history of detox seizures; he has experienced delirium tremens in an ICU approximately one year ago. He is allergic to haloperidol and olanzapine, both resulting in anaphylaxis. The only other available, short-acting, non-depot injectible antipsychotic, in the event of severe agitation due to delirium is fluphenazine, a different class, per pharmacy. (Supplied in 10 mL vial; 2.5 mg/ mL; dosing for psychosis suggested via IM q 6-8 hours. If this is required, a small trial dose, 1.25 mg/0.5 mL is suggested, with respiratory support, due to anaphylaxis with other meds, above). In the event of severe or dangerous agitation, please call refrigeration engine operator psychiatry. The ETOH Detox protocol has been restarted at the beginning, due to the high use of as needed lorazepam, and the worsening CIWA scores and VS. Provisional Treatment Plan: 1. ETOH Detox order set implemented with lorazepam PO scheduled and lorazepam PO as needed, per HR and CIWA. a. Hold for oversedation or respiratory depression. b. Do not hold for sleep; awaken the patient. 2. If severe or violent agitation or aggression, please see the note above and call refrigeration engine operator psychiatry for guidance with medication for this. Mechanical restraints and safety monitor, as needed. 3. Continue folic acid, MVI and thiamine daily. 4. I have ordered a valproic acid level to be added on today. Please advise refrigeration engine operator psychiatry if leve is greater than 100 for instructions. 5. Please order a current EKG. Antipsychotics may not be administered if arrhythmia or QTc greater than 475 mS, without approval from cardiology. Maintain potassium and magnesium in the upper portion of the normal range. roof truss builder psychiatry over the weekend, call [phone] or [phone] We will continue to follow along. thank you for this consult.
--- NOTE | 2017-08-27 15:59 | ULTRASOUND REPORT ---
EXAMINATION: US ABDOMEN LIMITED CLINICAL INFORMATION: Abdominal pain. Rule out liver/biliary pathology. COMPARISON: None TECHNIQUE: Real-time imaging of the right upper quadrant abdominal viscera. FINDINGS: Evaluation is limited due to difficulties with patient breathing. Patient was sleeping through the examination. PANCREAS: The pancreatic body and portions of the head and tail are visualized and appear slightly echogenic, perhaps related to fat infiltration. Remainder of pancreas is obscured by bowel gas. LIVER: The liver is enlarged, measuring 22 cm longitudinally. Diffusely increased hepatic parenchymal echogenicity seen, consistent with hepatic steatosis. With color Doppler imaging, main portal vein is found to be patent with normal hepatopetal flow seen. No focal lesion or intrahepatic biliary duct dilatation. GALLBLADDER: Normal. The gallbladder is physiologically distended without evidence of stones, sludge, polyps, wall thickening or pericholecystic fluid. COMMON BILE DUCT: Normal in caliber measuring 0.5 cm in diameter. RIGHT KIDNEY: Normal. No hydronephrosis. No renal calculi or focal parenchymal lesions. The kidney measures 11.6 cm in maximum dimension. FREE FLUID: None. IMPRESSION: 1. Enlarged echogenic liver, consistent with infiltrative liver disease, most likely hepatic steatosis. 2. Echogenic pancreas, suggesting fatty infiltration of the pancreas. Portions of the pancreatic head and tail are not visualized. Remainder of the pancreas is otherwise unremarkable. 3. Otherwise unremarkable right upper quadrant ultrasound.
[2017-08-28 07:06] VITALS: BP 132/86
--- NOTE | 2017-08-28 09:19 | PN- Housestaff ---
Alison [facility]ERN[facility]NDEZ,[facility] 0919: Subjective Follow-up For: Alcohol withdrawal/detoxification Subjective: Afebrile, hemodynamically stable, and saturating well on room air. The patient reports improvement on all his symptom. His nausea and abdominal pain has improved and he is willing to try clear liquid. Review of Systems Constitutional: Reports: see HPI. Objective Last 24 Hrs of Vital Signs/I&O Vital Signs Date Time Temp Pulse Resp B/P B/P Pulse O2 O2 Flow FiO2 Mean Ox Delivery Rate 08/28 1410 98.3 90 18 142/82 95 08/28 1118 78 132/80 08/28 0706 98.2 87 18 132/86 94 08/27 2144 98.8 96 20 130/90 92 Room Air 08/27 1800 92 18 122/72 Intake & Output 08/28 1600 08/28 0800 08/28 0000 Intake Total 1500 600 600 Output Total 700 Balance 800 600 600 Intake, IV 600 600 600 Intake, Oral 900 Number 0 Bowel Movements Output, Urine 700 Physical Exam General Appearance: Alert, Oriented X3, Cooperative, Mild Distress Skin: No Rashes HEENT: Atraumatic, PERRLA, EOMI, Mucous Membr. moist/pink Neck: No JVD Cardiovascular: Regular Rate, Normal S1, Normal S2, No Murmurs Lungs: Clear to Auscultation, Normal Air Movement Abdomen: Soft, mild epi tenderness Extremities: No Cyanosis, No Edema, clubbing of fingers Current Medications: Current Medications Sig/Joaquin Start time Last Medication Dose Route Stop Time Status Admin Al Hydroxide/Mg 30 ML Q6P PRN 08/25 1015 AC Hydroxide PO Amlodipine Besylate 10 MG DAILY 08/25 1000 AC 08/28 PO 1119 Divalproex Sodium 750 MG TID 08/25 1600 AC 08/28 PO 1119 Enoxaparin Sodium 40 MG DAILY 08/26 1000 AC 08/28 SC 1119 Folic Acid 1 MG DAILY 08/26 1000 AC 08/28 PO 1118 Hydrochlorothiazide 50 MG DAILY 08/25 1000 AC 08/28 PO 1118 Insulin Aspart 0 TIDAC 08/25 1200 DC 08/27 SC 0853 Insulin Human Regular 0 TIDAC/HS 08/27 2100 AC SC Lactated Ringer's 1,000 ML Q13H 08/27 1000 AC 08/28 IV 1124 Lorazepam 0.5 MG ONCE 09/01 0000 DC PO 09/01 0001 Lorazepam 0.5 MG Q6H 08/31 0000 DC PO 08/31 1801 Lorazepam 0.5 MG ONCE ONE 08/30 1800 DC PO 08/30 1801 Lorazepam 1 MG Q6H 08/30 0000 DC PO 08/30 1201 Lorazepam 1.5 MG Q12H 08/29 0600 DC PO 08/29 1801 Lorazepam 1 MG Q12H 08/29 0000 DC PO 08/29 1201 Lorazepam 0.5 MG ONCE ONE 08/28 1800 CAN PO 08/28 1801 Lorazepam 1 MG Q6 08/28 1800 AC PO Lorazepam 1.5 MG Q6 08/28 0600 DC 08/28 PO 08/28 1801 1118 Lorazepam 2 MG Q6 08/27 1200 DC 08/27 PO 08/28 0001 2336 Lorazepam 2 MG Q2P PRN 08/27 1015 AC 08/27 IV 2123 Lorazepam 1 MG Q2P PRN 08/27 1015 AC IV Losartan Potassium 50 MG DAILY 08/25 1000 AC 08/28 PO 1118 Metoprolol Succinate 50 MG DAILY 08/25 1000 AC 08/28 PO 1124 Morphine Sulfate 2 MG Q6-PRN PRN 08/25 1030 AC 08/26 IV 2103 Multivitamins 1 TAB DAILY 08/26 1000 AC 08/28 PO 1119 Nicotine 14 MG DAILY 08/25 1012 AC 08/28 TOP 1119 Omeprazole 40 MG DAILY 08/26 1000 AC 08/28 PO 1118 Ondansetron HCl 4 MG Q6P PRN 08/27 1000 AC 08/27 IV 2123 Thiamine HCl 100 MG DAILY 08/25 1012 AC 08/28 PO 1119 Trazodone HCl 50 MG AT BEDTIME NEED.. 08/24 2300 AC PO Last 24 Hrs of Lab/Moi Results Last 24 Hrs of Labs/Mics: Laboratory Tests 08/28/17 0630: Anion Gap 11, Estimated GFR > 60, BUN/Creatinine Ratio 16.7 Assessment/Plan Assessment: 51-year-old male with a history of alcohol use who presented for alcohol detoxification .the patient has a history of alcohol withdrawal related seizure that required ICU admission and mechanical ventilation. Serum alcohol on admission was 238. This morning patient nausea and abdominal pain has improved and he is willing to try clear liquid. He scoring low on CIWA. Abdominal ultrasound ruled acute liver pathology. Problem list Alcohol withdrawal/impending DTs. Transaminitis Hyponatremia History of hypertension History of type 2 diabetes mellitus Plan #Alcohol withdrawal * We will taper down Ativan to 1 mg by mouth every 6 hours * Advanced diet to clear liquid * We will DC fluid if tolerates oral intake * Zofran as needed * Continue with Depakote 750 mg 3 times a day. * Psychiatry/Social work consult. * Continue with aspiration and seizure precautions. #Transaminitis likely 2/2 to alcohol use * Improved since admission * We will repeat liver function test one more time prior to discharge #Hyponatremia-likely 2/2 dehydration. * If tolerates oral intake, and sodium did not improve we will send for urine electrolytes and osmolarity * Repeat sodium tomorrow History of hypertension/T2DM * Continue home medications, but hold Metformin * continue with NovoLog sliding scale * Accu-Cheks * He will be in diabetic diet when he can tolerate -DVT prophylaxis with subcutaneous Lovenox and Alps -Clear liquid -FC Problem List: 1. Alcohol withdrawal Pain Ratin Pain Location: epigastric Pain Goal: Remain pain free Pain Plan: See A&P Tomorrow's Labs & Rationales: CBC, BEP Toney HERNÁNDEZ,Barbie 08/28/17 1459: Attending MD Review Statement Attending Statement Attending MD Statement: examined this patient, discuss w/resident/PA/LIBRARY PARAPROFESSIONAL, agreed w/resident/PA/LIBRARY PARAPROFESSIONAL, discussed with family, reviewed EMR data (avail), discussed with nursing, discussed with case mgmt, reviewed images, amended to note Attending Assessment/Plan: Patient seen and examined, overall doing better. CIWA scores are running on the low range now. Abdominal pain as well as dry heaving is slightly better. Patient is admitted with acute alcohol Intoxication and alcoholic gastritis. Abdominal ultrasound shows fatty liver. Patient can be started on clear liquid diet and this can be advanced slowly as he tolerates. Would Taper Ativan to 1 mg every 6 hours today and further taper tomorrow. Continue when necessary Ativan. Continue IV fluids and once patient able to tolerate full liquid diet then we can stop it. Continue the rest of the medications and patient on Lovenox for DVT prophylaxis.
[2017-08-28 14:10] VITALS: BP 142/82
[2017-08-28 21:50] VITALS: BP 128/100
[2017-08-29 07:16] VITALS: BP 132/94
--- NOTE | 2017-08-29 08:49 | PN- Housestaff ---
See Addendum Subjective Follow-up For: Alcohol detox Subjective: Patient continued to be afebrile, hemodynamically stable, and saturating lower 90s on room air . This morning HR is in the 80s. Over night CIWA was 2-4. patient developed epigastric abdominal pain and diarrhea after his food was advanced to full liquid at dinner yesterday. Review of Systems Constitutional: Reports: see HPI. Denies: fever, weakness. Cardiovascular: Denies: chest pain. Respiratory: Denies: orthopnea, short of breath. Gastrointestinal: Reports: abdominal pain, diarrhea. Denies: constipation, melena, nausea, vomiting. Genitourinary: Denies: dysuria. Objective Last 24 Hrs of Vital Signs/I&O Vital Signs Date Time Temp Pulse Resp B/P B/P Pulse O2 O2 Flow FiO2 Mean Ox Delivery Rate 08/29 0716 97.6 84 20 132/94 92 08/28 2150 97.9 103 20 128/100 92 Room Air 08/28 1410 98.3 90 18 142/82 95 08/28 1118 78 132/80 Intake & Output 08/29 1600 08/29 0800 08/29 0000 Intake Total 100 1350 Output Total 800 Balance 100 550 Intake, IV 450 Intake, Oral 100 900 Number 1 Bowel Movements Output, Urine 800 Physical Exam General Appearance: Alert, Oriented X3, Cooperative Skin: No Rashes HEENT: Atraumatic, PERRLA, EOMI, mild dry Neck: No JVD Cardiovascular: Regular Rate, Normal S1, Normal S2, No Murmurs Lungs: Clear to Auscultation, Normal Air Movement Abdomen: Normal Bowel Sounds, Soft, No Tenderness Neurological: Normal Speech, mild hands tremors Extremities: No Cyanosis, No Edema, fingers clubbing Current Medications: Current Medications Sig/Joaquin Start time Last Medication Dose Route Stop Time Status Admin Al Hydroxide/Mg 30 ML Q6P PRN 08/25 1015 AC Hydroxide PO Amlodipine Besylate 10 MG DAILY 08/25 1000 AC 08/28 PO 1119 Divalproex Sodium 750 MG TID 08/25 1600 AC 08/28 PO 211 Enoxaparin Sodium 40 MG DAILY 08/26 1000 AC 08/28 SC 1119 Folic Acid 1 MG DAILY 08/26 1000 AC 08/28 PO 111 Hydrochlorothiazide 50 MG DAILY 08/25 1000 AC 08/28 PO 1118 Insulin Human Regular 0 TIDAC/HS 08/27 2100 AC SC Lactated Ringer's 1,000 ML Q13H 08/27 1000 DC 08/28 IV 1124 Lorazepam 0.5 MG ONCE 09/01 0000 DC PO 09/01 0001 Lorazepam 0.5 MG Q6H 08/31 0000 DC PO 08/31 1801 Lorazepam 0.5 MG ONCE ONE 08/30 1800 DC PO 08/30 1801 Lorazepam 1 MG Q6H 08/30 0000 DC PO 08/30 1201 Lorazepam 1.5 MG Q12H 08/29 0600 DC PO 08/29 1801 Lorazepam 1 MG Q12H 08/29 0000 DC PO 08/29 1201 Lorazepam 0.5 MG ONCE ONE 08/28 1800 CAN PO 08/28 1801 Lorazepam 1 MG Q6 08/28 1800 AC 08/29 PO 0636 Lorazepam 1.5 MG Q6 08/28 0600 DC 08/28 PO 08/28 1801 1118 Lorazepam 2 MG Q2P PRN 08/27 1015 AC 08/27 IV 2123 Lorazepam 1 MG Q2P PRN 08/27 1015 AC 08/28 IV 1550 Losartan Potassium 50 MG DAILY 08/25 1000 AC 08/28 PO 1118 Metoprolol Succinate 50 MG DAILY 08/25 1000 AC 08/28 PO 1124 Morphine Sulfate 2 MG Q6-PRN PRN 08/25 1030 AC 08/26 IV 2103 Multivitamins 1 TAB DAILY 08/26 1000 AC 08/28 PO 1119 Nicotine 14 MG DAILY 08/25 1012 AC 08/28 TOP 1119 Omeprazole 40 MG DAILY 08/26 1000 AC 08/28 PO 1118 Ondansetron HCl 4 MG Q6P PRN 08/27 1000 AC 08/27 IV 2123 Potassium Chloride 40 MEQ ONCE ONE 08/29 0915 DC PO 08/29 0916 Potassium Chloride 40 MEQ ONCE ONE 08/28 1900 DC 08/28 PO 08/28 1901 2119 Potassium Chloride 40 MEQ ONCE ONE 08/28 1530 DC 08/28 PO 08/28 1531 1550 Thiamine HCl 100 MG DAILY 08/25 1012 AC 08/28 PO 1119 Trazodone HCl 50 MG AT BEDTIME NEED.. 08/24 2300 AC PO Last 24 Hrs of Lab/Moi Results Last 24 Hrs of Labs/Mics: Laboratory Tests 08/29/17 0640: Anion Gap 11, Estimated GFR > 60, BUN/Creatinine Ratio 17.5 Assessment/Plan Assessment: 51-year-old male with a history of alcohol use who presented for alcohol detoxification .the patient has a history of alcohol withdrawal related seizure that required ICU admission and mechanical ventilation. Serum alcohol on admission was 238. This morning patient nausea and abdominal pain has improved and he is willing to try clear liquid. He scoring low on CIWA. Abdominal ultrasound ruled acute liver pathology. Plan #Alcohol withdrawal * We will taper down Ativan to 1 mg by mouth every 8 hours * We will start back on clear liq and advanced diet as tolerated * Zofran as needed * Continue with Depakote 750 mg 3 times a day. * Psychiatry/Social work consult. * Continue with aspiration and seizure precautions. * One time of morphin for abd pain and shoulder pain. #Transaminitis likely 2/2 to alcohol use * Improved since admission * We will repeat liver function test one more time prior to discharge #Hyponatremia(resolved) * NTD History of hypertension/T2DM * Continue home medications, but hold Metformin * continue with NovoLog sliding scale * Accu-Cheks * He will be in diabetic diet when he can tolerate solid diet -DVT prophylaxis with subcutaneous Lovenox and Alps -Clear liquid for now - Problem List: 1. Alcohol withdrawal Pain Ratin Pain Location: epigastric and left shoulder Pain Goal: Remain pain free Pain Plan: See A&P Tomorrow's Labs & Rationales: See A&P
[2017-08-29 14:55] VITALS: BP 140/84
[2017-08-29 21:42] VITALS: BP 128/80
--- NOTE | 2017-08-30 02:46 | CT SCAN REPORT ---
EXAMINATION: CT ABDOMEN AND PELVIS WITHOUT CONTRAST CLINICAL INFORMATION: Epigastric abdominal pain, EtOH withdrawal COMPARISON: None TECHNIQUE: Multidetector volumetric imaging was performed from the superior aspect of the liver through the pubic symphysis. Sagittal and coronal reformatted images were obtained on the technologist's workstation. DLP: 667.67 mGy-cm FINDINGS: LUNG BASES: The visualized lung bases demonstrate mild dependent atelectasis. LIVER, GALLBLADDER, AND BILIARY TREE: The liver is enlarged, measuring approximately 27 cm in craniocaudal dimension. There is mild diffuse hypoattenuation of liver suspicious for steatosis. No biliary ductal dilatation is present. Patient is status post cholecystectomy. PANCREAS: There are tiny calcifications in the region of the pancreatic head, which could reflect sequelae of chronic pancreatitis. No appreciable peripancreatic inflammation. SPLEEN: Unremarkable. ADRENAL GLANDS: Unremarkable. KIDNEYS AND URETERS: The kidneys are normal in size, shape, and attenuation. No hydronephrosis, hydroureter, or calculi seen. No perinephric stranding. BLADDER: Unremarkable. GASTROINTESTINAL TRACT: The small and large bowel are unremarkable. The appendix is unremarkable. ABDOMINAL WALL: Tiny focus of subcutaneous gas with surrounding stranding in the anterior abdominal wall is favored to reflect sequelae of recent subcutaneous injection. There are bilateral fat-containing inguinal hernias which are partially included on this exam. LYMPH NODES: Normal. VASCULAR: There is atherosclerotic calcification along the aorta. PELVIC VISCERA: Unremarkable. OSSEOUS STRUCTURES: Degenerative changes are noted in the spine. IMPRESSION: 1. No acute findings identified in the abdomen/pelvis. 2. Hepatomegaly with steatosis. 3. Tiny calcifications in the pancreatic head, which could reflect chronic pancreatitis.
[2017-08-30 02:49] VITALS: BP 128/80
--- NOTE | 2017-08-30 04:06 | Event Note ---
Event Note Event Note: S: MD called for epigastric pain B: pt admitted for etoh withdrawal A/R: Pt examined by myself and the resident. Pt had + BS. Tender to palpation in the RUQ and epigastric area. Pt states pain is a sharp pain radiating to the back. CT abd w.o IV contrast: No acute findings identified in the abdomen/ pelvis. Hepatomegaly with steatosis. Tiny calcifications in the pancreatic head, which could reflect chronic pancreatitis. LFTS: Total bilirubin 0.7, direct bilirubin 0.4, AST 65, ALT 137, ALP 77 Lipase 71 Pt has given bowel regimen as he states no BM x2 days.
[2017-08-30 07:04] VITALS: BP 120/94
--- NOTE | 2017-08-30 07:54 | PN- Housestaff ---
Cindy Villanueva 08/30/17 0754: Subjective Follow-up For: Alcohol withdrawal/impending DTs. Transaminitis Subjective: Patient is seen and examined this morning, still reports abdominal discomfort, nausea is better. CT abdomen and pelvis revealed chronic pancreatitis will obtain GI consult today and follow-up. Review of Systems Constitutional: Denies: diaphoresis, fever, malaise. EENTM: Denies: blurred vision, visual changes, eye pain. Cardiovascular: Denies: chest pain, edema. Respiratory: Denies: cough, orthopnea. Gastrointestinal: Reports: abdominal pain. Denies: bloating, constipation. Genitourinary: Denies: dysuria, frequency, hematuria. Musculoskeletal: Denies: gout, joint pain. Skin: Denies: change in skin color, change in hair/nails. Objective Last 24 Hrs of Vital Signs/I&O Vital Signs Date Time Temp Pulse Resp B/P B/P Pulse O2 O2 Flow FiO2 Mean Ox Delivery Rate 08/30 1444 97.5 88 20 112/60 95 Room Air 08/30 0704 97.8 77 20 120/94 92 08/30 0249 97.0 88 20 128/80 08/29 2142 97.0 88 20 128/80 95 Room Air Intake & Output 08/30 1600 08/30 0800 08/30 0000 Intake Total 60 200 Output Total 600 850 Balance -540 -650 Intake, IV 30 Intake, Oral 30 200 Number 1 Bowel Movements Output, Urine 600 850 Patient 224 lb Weight Physical Exam General Appearance: Alert, Oriented X3 Skin: No Rashes HEENT: Atraumatic, PERRLA, EOMI Cardiovascular: Regular Rate, Normal S1, Normal S2 Lungs: Clear to Auscultation, Normal Air Movement Abdomen: Normal Bowel Sounds, Soft, No Tenderness Neurological: Normal Speech, Strength at 5/5 X4 Ext Extremities: No Clubbing, No Edema Assessment/Plan Assessment: 51-year-old male with a history of alcohol use who presented for alcohol detoxification .the patient has a history of alcohol withdrawal related seizure that required ICU admission and mechanical ventilation. Serum alcohol on admission was 238. This morning patient nausea and abdominal pain has improved and he is willing to try clear liquid. He scoring low on CIWA. Abdominal ultrasound ruled acute liver pathology. Plan #Alcohol withdrawal * We will taper down Ativan to 0.5 milligrams by mouth every 8 hours * We will start back on clear liq and advanced diet as tolerated * Zofran as needed * Continue with Depakote 750 mg 3 times a day. * Psychiatry/Social work consult. * Continue with aspiration and seizure precautions #Transaminitis likely 2/2 to alcohol use * Improved. Persistent abdominal discomfort, CAT scan finding of chronic appendicitis * still reports abdominal discomfort, nausea is better. CT abdomen and pelvis revealed chronic pancreatitis will obtain GI consult today and follow-up. #Hyponatremia(resolved) * NTD History of hypertension/T2DM * Continue home medications, but hold Metformin * continue with NovoLog sliding scale * Accu-Cheks * He will be in diabetic diet when he can tolerate solid diet -DVT prophylaxis with subcutaneous Lovenox and Alps -Clear liquid for now -FC Problem List: 1. Alcoholic hepatitis Pain Ratin Pain Location: PRN TYLENOL Pain Goal: Remain pain free Pain Plan: When necessary Tylenol Tomorrow's Labs & Rationales: No need of lab labs tomorrow [facility] 1150: Attending MD Review Statement Attending Statement Attending MD Statement: examined this patient, discuss w/resident/PA/MACHINE MAINTENANCE, agreed w/resident/PA/MACHINE MAINTENANCE, reviewed EMR data (avail), discussed with nursing, discussed with case mgmt, reviewed images, amended to note Attending Assessment/Plan: Patient seen and examined, overall doing better in terms of alcohol withdrawal but continues to complain off epigastric abdominal pain. Overnight CT abdomen and pelvis was obtained which showed chronic pancreatitis. Vital Signs Date Time Temp Pulse Resp B/P B/P Pulse O2 O2 Flow FiO2 Mean Ox Delivery Rate 08/30 0704 97.8 77 20 120/94 92 08/30 0249 97.0 88 20 128/80 08/29 2142 97.0 88 20 128/80 95 Room Air 08/29 1455 97.5 82 20 140/84 94 on exam; aox3, nad. cv; s1, s2, rrr resp; clear abd; soft, tender in epigastrium. ext; no edema. Laboratory Tests 08/30 0200 Chemistry Total Bilirubin (0.2 - 1.3 mg/dL) 0.7 Direct Bilirubin (< 0.4 mg/dL) 0.4 AST (17 - 59 U/L) 95 H ALT (21 - 72 U/L) 137 H Alkaline Phosphatase (< 127 U/L) 77 Total Protein (6.3 - 8.2 g/dL) 7.2 Albumin (3.5 - 5.0 g/dL) 4.2 Lipase (23 - 300 U/L) 71 A/P; 51 y/o M with pmh sig for alcohol overuse, alcohol withdrawal seizures including prolonged hospitalization requiring ICU admission in 2016, pancreatitis, hypertension, T2DM, and bipolar disorder, is admitted with acute alcohol intoxication. Patient continues to complain of epigastric abdominal pain. CT abdomen and pelvis obtained last night showed chronic pancreatitis. This all could be secondary to cholecystitis. Patient could not tolerate advancement of diet therefore had to be switched back to clear liquid diet. Patient already on a PPI and currently getting morphine for pain control. Will obtain a GI consult. Will further taper down his scheduled Ativan to 0.5 mg every 8 hours. Continue when necessary Ativan. Continue the rest of the medications. Depakote levels are therapeutic. Please have social work see the patient. DVT px: Lovenox. Possible discharge tomorrow with outpatient care follow-up.
--- NOTE | 2017-08-30 10:17 | PN- Psychiatry ---
Assessment/Plan Impression: The has progressed with his alcohol detox, and the medical team has taken control of his lorazepam detox taper protocol. The patient reports that he is intent on seeking aftercare for alcohol use disorder at [facility]. He reports that he sees his counselor, Ivana, once per week at [facility], and feels that helps. His Depakote is prescribed by his PCP: Santhosh Barrera APRN [address] [place], [place] [address] Medical social work is following this patient and will assist with aftercare. Suggestion: 1. Continue lorazepam detox taper to off, reducing daily amount by 20% each day. The patient has a history of alcohol withdrawal seizures. 2. Continue MVI, folic acid and thiamine. 3. ROLLER MILL OPERATOR is followong and will assist with alcohol use d/o aftercare. 4. Discharge summary to the PCP, Santhosh Barrera APRN, including valproic acid levels. The patient is not suicidal, psychotic, nor delirious. Thank you for this consult. Psychaitry is signing off. Please re-consult if other psychiatric matters arise. Subjective Subjective: The patient lying on his bed, his supportive fiancee, who has been staying with him, is not present. Psychomotor agititation noted in legs and arms. He is c/o abdominal pain, and is asking for "real" food, as he has been eating kyrgyz ices and broth. He has not been tolerating them, and is vague about how more complex food would be beneficial. He states that his pain is related to his alcohol consumption. Dr. Ziegler and team are aware of the pain, and are treating him. "If this is about the alcohol, I'm all set." He states that his fiancee is going to arrange an appointment for [facility] today. "I'm concerned about getting something in my stomach." Alert and oriented. Denies AH, TH, and VH, and presents no filiberto delusions. Denies suicidal or homicidal ideation. Endorses depression and anxiety. Denies hopelessness, helplessness, worthlessness or guilty feelings. At home, he lives with his fiancee. 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 He had 9 months sobriety, which he reports was in [place], where he had a sponsor. "When I cam back here, I was like a fish out of water," and states that he began to drink again. He states that his Depakote is prescribed by his Review of Systems Neurological/Psychological: Reports: anxiety, dementia. Objective Last 24 Hrs of Vital Signs/I&O Vital Signs Date Time Temp Pulse Resp B/P B/P Pulse O2 O2 Flow FiO2 Mean Ox Delivery Rate 08/30 0704 97.8 77 20 120/94 92 08/30 0249 97.0 88 20 128/80 08/29 2142 97.0 88 20 128/80 95 Room Air 08/29 1455 97.5 82 20 140/84 94 08/29 1149 80 136/80 Intake & Output 08/30 1600 08/30 0800 08/30 0000 Intake Total 60 200 Output Total 600 850 Balance -540 -650 Intake, IV 30 Intake, Oral 30 200 Number 1 Bowel Movements Output, Urine 600 850 As of 08/30/17 @ 0945: Lorazepam 3 mg scheduled and 1 mg PRN for 24 total of 4 mg. From 08/30/17 @ 0600: CIWA 0,0,0,11,5,0,0,2,0,3,0,2,0,2 VS 08/30/17 @ 0704: 120/94, 77, 97.8, 20, 92% RA, pain 10 Valproic acid level 08/27/17: 55.2, or therapeutic. Physical Exam: Not performed Physical Exam Abdomen: hepatomegaly Neurologic/Psychiatric: awake, alert, oriented x 3 Current Medications: Current Medications Sig/Joaquin Start time Last Medication Dose Route Stop Time Status Admin Al Hydroxide/Mg 30 ML .STK-MED ONE 08/29 165 DC Hydroxide PO 08/29 165 Al Hydroxide/Mg 30 ML Q6P PRN 08/25 1015 AC 08/29 Hydroxide PO 165 Amlodipine Besylate 10 MG DAILY 08/25 1000 AC 08/30 PO 20 Divalproex Sodium 750 MG TID 08/25 1600 AC 08/30 PO 19 Docusate Sodium 100 MG DAILY NEEDED PRN 08/30 0300 AC PO Enoxaparin Sodium 40 MG DAILY 08/26 1000 AC 08/30 SC 0920 Folic Acid 1 MG DAILY 08/26 1000 AC 02/12 PO 0919 Hydrochlorothiazide 50 MG DAILY 08/25 1000 AC 08/30 PO 0920 Hydromorphone HCl 1 MG ONCE ONE 08/29 1930 DC 08/29 IV 08/29 1930 194 Insulin Human Regular 0 TIDAC/HS 08/27 2100 AC SC Lorazepam 0.5 MG ONCE 09/01 0000 DC PO 09/01 0001 Lorazepam 0.5 MG Q6H 08/31 0000 DC PO 08/31 1801 Lorazepam 0.5 MG ONCE ONE 08/30 1800 DC PO 08/30 1801 Lorazepam 1 MG Q6H 08/30 0000 DC PO 08/30 1201 Lorazepam 1 MG Q8 08/29 1400 AC 08/30 PO 0540 Lorazepam 1 MG Q6 08/28 1800 DC 08/29 PO 0636 Lorazepam 2 MG Q2P PRN 08/27 1015 AC 08/27 IV 2123 Lorazepam 1 MG Q2P PRN 08/27 1015 AC 08/30 IV 0243 Losartan Potassium 50 MG DAILY 08/25 1000 AC 08/30 PO 0920 Metoprolol Succinate 50 MG DAILY 08/25 1000 AC 08/30 PO 0920 Morphine Sulfate 2 MG Q6-PRN PRN 08/25 1030 AC 08/30 IV 0923 Multivitamins 1 TAB DAILY 08/26 1000 AC 08/30 PO 0920 Nicotine 14 MG DAILY 08/25 1012 AC 08/30 TOP 0921 Omeprazole 40 MG DAILY 08/26 1000 AC 08/30 PO 0920 Ondansetron HCl 4 MG Q6P PRN 08/27 1000 AC 08/27 IV 2123 Senna 187 MG AT BEDTIME 08/30 0300 AC 08/30 PO 0540 Sodium Chloride 1,000 ML Q6H 08/30 0130 DC 08/30 IV 0239 Thiamine HCl 100 MG DAILY 08/25 1012 AC 08/30 PO 0919 Trazodone HCl 50 MG AT BEDTIME NEED.. 08/24 2300 AC PO Results Last 24 Hrs of Labs/Mics: Laboratory Tests 08/30 0200 Chemistry Total Bilirubin (0.2 - 1.3 mg/dL) 0.7 Direct Bilirubin (< 0.4 mg/dL) 0.4 AST (17 - 59 U/L) 95 H ALT (21 - 72 U/L) 137 H Alkaline Phosphatase (< 127 U/L) 77 Total Protein (6.3 - 8.2 g/dL) 7.2 Albumin (3.5 - 5.0 g/dL) 4.2 Lipase (23 - 300 U/L) 71 Recent Imaging Studies: PATIENT: JB LANDIN PRESENT AGE: 51 PATIENT ACCOUNT NO: [id number] : 66 LOCATION: [facility] ORDERING PHYSICIAN: Cindy Villanueva MD SERVICE DATE: 08/27/17- EXAM TYPE: US - US-LIMITED ABDOMEN EXAMINATION: US ABDOMEN LIMITED CLINICAL INFORMATION: Abdominal pain. Rule out liver/biliary pathology. COMPARISON: None TECHNIQUE: Real-time imaging of the right upper quadrant abdominal viscera. FINDINGS: Evaluation is limited due to difficulties with patient breathing. Patient was sleeping through the examination. PANCREAS: The pancreatic body and portions of the head and tail are visualized and appear slightly echogenic, perhaps related to fat infiltration. Remainder of pancreas is obscured by bowel gas. LIVER: The liver is enlarged, measuring 22 cm longitudinally. Diffusely increased hepatic parenchymal echogenicity seen, consistent with hepatic steatosis. With color Doppler imaging, main portal vein is found to be patent with normal hepatopetal flow seen. No focal lesion or intrahepatic biliary duct dilatation. GALLBLADDER: Normal. The gallbladder is physiologically distended without evidence of stones, sludge, polyps, wall thickening or pericholecystic fluid. COMMON BILE DUCT: Normal in caliber measuring 0.5 cm in diameter. RIGHT KIDNEY: Normal. No hydronephrosis. No renal calculi or focal parenchymal lesions. The kidney measures 11.6 cm in maximum dimension. FREE FLUID: None. IMPRESSION: 1. Enlarged echogenic liver, consistent with infiltrative liver disease, most likely hepatic steatosis. 2. Echogenic pancreas, suggesting fatty infiltration of the pancreas. Portions of the pancreatic head and tail are not visualized. Remainder of the pancreas is otherwise unremarkable. 3. Otherwise unremarkable right upper quadrant ultrasound. DICTATED BY: Zeynep Jones MD DATE/TIME DICTATED:08/27/171550 WATER QUALITY ASSISTANT:DAVID DATE/TIME TRANSCRIBED:08/27/171550 CONFIDENTIAL, DO NOT COPY WITHOUT APPROPRIATE AUTHORIZATION. <Electronically signed in Other Vendor System> SIGNED BY: Zeynep Jones MD [id number] PATIENT: JB LANDIN PRESENT AGE: 51 PATIENT ACCOUNT NO: [id number] : 66 LOCATION: [facility] ORDERING PHYSICIAN: Attila Sutton MD SERVICE DATE: 08/30/17 EXAM TYPE: CAT - CT ABD & PELVIS W/O IV CONTRAS EXAMINATION: CT ABDOMEN AND PELVIS WITHOUT CONTRAST CLINICAL INFORMATION: Epigastric abdominal pain, EtOH withdrawal COMPARISON: None TECHNIQUE: Multidetector volumetric imaging was performed from the superior aspect of the liver through the pubic symphysis. Sagittal and coronal reformatted images were obtained on the technologist's workstation. DLP: 667.67 mGy-cm FINDINGS: LUNG BASES: The visualized lung bases demonstrate mild dependent atelectasis. LIVER, GALLBLADDER, AND BILIARY TREE: The liver is enlarged, measuring approximately 27 cm in craniocaudal dimension. There is mild diffuse hypoattenuation of liver suspicious for steatosis. No biliary ductal dilatation is present. Patient is status post cholecystectomy. PANCREAS: There are tiny calcifications in the region of the pancreatic head, which could reflect sequelae of chronic pancreatitis. No appreciable peripancreatic inflammation. SPLEEN: Unremarkable. ADRENAL GLANDS: Unremarkable. KIDNEYS AND URETERS: The kidneys are normal in size, shape, and attenuation. No hydronephrosis, hydroureter, or calculi seen. No perinephric stranding. BLADDER: Unremarkable. GASTROINTESTINAL TRACT: The small and large bowel are unremarkable. The appendix is unremarkable. ABDOMINAL WALL: Tiny focus of subcutaneous gas with surrounding stranding in the anterior abdominal wall is favored to reflect sequelae of recent subcutaneous injection. There are bilateral fat-containing inguinal hernias which are partially included on this exam. LYMPH NODES: Normal. VASCULAR: There is atherosclerotic calcification along the aorta. PELVIC VISCERA: Unremarkable. OSSEOUS STRUCTURES: Degenerative changes are noted in the spine. IMPRESSION: 1. No acute findings identified in the abdomen/pelvis. 2. Hepatomegaly with steatosis. 3. Tiny calcifications in the pancreatic head, which could reflect chronic pancreatitis. DICTATED BY: Ar Colvin MD DATE/TIME DICTATED:08/30/17231 WATER QUALITY ASSISTANT:DAVID DATE/TIME TRANSCRIBED:08/30/17231 CONFIDENTIAL, DO NOT COPY WITHOUT APPROPRIATE AUTHORIZATION. <Electronically signed in Other Vendor System> SIGNED BY: Ar Colvin MD 08/30/17 0246
[2017-08-30 14:44] VITALS: BP 112/60
--- NOTE | 2017-08-30 18:15 | Cons- Gastroenterology ---
General Information and HPI Consulting Request Date of Consult: 08/30/17 (MD YAQUELIN/GASTROENTEROLOGY) Requested By: Toney HERNÁNDEZ,Barbie Reason for Consult: Abdominal pain Source of Information: patient, old records History of Present Illness: 51-year-old male admitted for alcohol detox 5 days ago. According to him, he has no history of chronic or recurrent abdominal pain, indigestion pancreatic or liver disease; his bowel movements are usually normal. He is on metformin for diabetes mellitus. He has a history of bipolar disorder. He had a severe reaction to haloperidol requiring extended hospitalization, including the placement of the gastrostomy tube. He has had no previous GI investigation aside for endoscopy at the time of gastrostomy placement. During this hospitalization he has developed severe epigastric pain with radiation to the back, worse immediately after eating, and also worse standing and better lying down. The pain is described as squeezing/pressure/vise-like, severe, and constant. It is even worse with ingestion of antacids. It is relieved with parenteral narcotics. Family history positive for pancreatic disease in father. Social history positive tobacco as well as significant alcohol intake since age 23, with periods of abstinence. Allergies/Medications Allergies: Coded Allergies: haloperidol (From HALDOL) (Severe, ANGIODEMA 12/17/16) olanzapine (From ZYPREXA) (Severe, ANGIODEMA 12/17/16) Home Med List: Amlodipine Besylate 10 MG TABLET 1 TAB PO DAILY HEART/BP (Reported) Hydrochlorothiazide 50 MG TABLET 0.5 TAB PO DAILY BP (Reported) Metformin HCl 1,000 MG TABLET 1 TAB PO BID DM (Reported) Metoprolol Succ XL (Toprol Xl) 50 MG TAB 1 TAB PO DAILY HTN (Reported) Trazodone HCl 50 MG TABLET 50 MG PO AT BEDTIME NEEDED PRN SLEEP Valproic Acid (Depakene) 250 MG CAPSULE 3 TAB PO TID mental health Valsartan (Diovan) 320 MG TABLET 1 TAB PO DAILY BP (Reported) Current Medications: Current Medications Sig/Joaquin Start time Last Medication Dose Route Stop Time Status Admin Al Hydroxide/Mg 30 ML Q6P PRN 08/25 1015 AC 08/29 Hydroxide PO 1651 Amlodipine Besylate 10 MG DAILY 08/25 1000 AC 08/30 PO 0920 Divalproex Sodium 750 MG TID 08/25 1600 AC 08/30 PO 0919 Docusate Sodium 100 MG DAILY NEEDED PRN 08/30 0300 AC PO Enoxaparin Sodium 40 MG DAILY 08/26 1000 AC 08/30 SC 0920 Folic Acid 1 MG DAILY 08/26 1000 AC 08/30 PO 0919 Hydrochlorothiazide 50 MG DAILY 08/25 1000 AC 08/30 PO 0920 Hydromorphone HCl 0.6 MG ONCE ONE 08/30 1745 DC IV 08/30 1746 Hydromorphone HCl 1 MG ONCE ONE 08/29 1930 DC 08/29 IV 08/29 193 194 Insulin Human Regular 0 TIDAC/HS 08/27 2100 AC 08/30 SC 1211 Lorazepam 0.5 MG ONCE 09/01 0000 DC PO 09/01 0001 Lorazepam 0.5 MG Q6H 08/31 0000 DC PO 08/31 1801 Lorazepam 0.5 MG Q8 08/30 2200 AC PO 09/05 1359 Lorazepam 0.5 MG ONCE ONE 08/30 1800 DC PO 08/30 1801 Lorazepam 1 MG Q6H 08/30 0000 DC PO 08/30 1201 Lorazepam 1 MG Q8 08/29 1400 DC 08/30 PO 1321 Lorazepam 2 MG Q2P PRN 08/27 1015 AC 08/27 IV 2123 Lorazepam 1 MG Q2P PRN 08/27 1015 AC 08/30 IV 0243 Losartan Potassium 50 MG DAILY 08/25 1000 AC 08/30 PO 0920 Metoprolol Succinate 50 MG DAILY 08/25 1000 AC 08/30 PO 0920 Morphine Sulfate 2 MG Q6-PRN PRN 08/25 1030 AC 08/30 IV 1517 Multivitamins 1 TAB DAILY 08/26 1000 AC 08/30 PO 0920 Nicotine 14 MG DAILY 08/25 1012 AC 08/30 TOP 0921 Omeprazole 40 MG DAILY 08/26 1000 AC 08/30 PO 0920 Ondansetron HCl 4 MG Q6P PRN 08/27 1000 AC 08/27 IV 2123 Senna 187 MG AT BEDTIME 08/30 0300 AC 08/30 PO 0540 Sodium Chloride 1,000 ML Q6H 08/30 0130 DC 08/30 IV 0239 Thiamine HCl 100 MG DAILY 08/25 1012 AC 08/30 PO 0919 Trazodone HCl 50 MG AT BEDTIME NEED.. 08/24 2300 AC PO Past History Travel History Traveled to [place] past 21 day No Medical History Blood Transfusion Hx: No Neurological: seizure, (ALCOHOL WITHDRAWAL) EENT: 04/07/2016: trached Cardiovascular: hypertension, 02/2016: Hx 11 beat V tach Respiratory: failure to wean from vebt Gastrointestinal: GERD, pancreatitis Hepatic: cholelithiasis Renal: resolved PEPE Musculoskeletal: NONE Psychiatric: alcohol dependence, anxiety, bipolar disease, substance abuse ( cocaine/EtOH) Endocrine: diabetes Blood Disorders: NONE Cancer(s): NONE STOCKHOLDER/Reproductive: NONE Surgical History Surgical History: cholecystectomy, shoulder surgery Family History Relations & Conditions If Any: FATHER FH: diabetes mellitus Psychosocial History Where Do You Live? Home Who Do You Live With? fiance Services at Home: None Primary Language: Senegalese Smoking Status: Current Everyday Smoker ETOH Use: alcoholic Illicit Drug Use: cocaine Living Will? unknown Power of Elevated Guard/HCP? unknown Functional Ability ADLs Unknown: dressing, eating, toileting, bathing. Ambulation: independent (reportedly TAX SERVICES INTERN) IADLs Unknown: shopping, housework, finances, food prep, telephone, transportation, medication admin. Review of Systems Review of Systems Constitutional: Denies: chills, fever. EENTM: Denies: icterus, epistaxis. Cardiovascular: Denies: chest pain, syncope. Respiratory: Denies: cough, short of breath. GI: Reports: see HPI. Genitourinary: Denies: dysuria, hematuria. Musculoskeletal: Denies: muscle stiffness, neck pain. Skin: Denies: jaundice, lesions. Neurological/Psychological: Denies: cognitive dysfunction, tremors. Hematologic/Endocrine: Denies: bruising, bleeding. Exam & Diagnostic Data Vital Signs and I&O Vital Signs Date Time Temp Pulse Resp B/P B/P Pulse O2 O2 Flow FiO2 Mean Ox Delivery Rate 08/30 1444 97.5 88 20 112/60 95 Room Air 08/30 0704 97.8 77 20 120/94 92 08/30 0249 97.0 88 20 128/80 08/29 2142 97.0 88 20 128/80 95 Room Air Intake & Output 08/30 1600 08/30 0400 08/29 1600 08/29 0400 08/28 1600 08/28 0400 Intake Total 946 971 5531 1350 2100 600 Output Total 600 850 725 800 700 Balance 110 -650 687 617 3929 600 Intake, IV 30 20 450 1200 600 Intake, Oral 117 232 4437 900 900 Number 1 0 1 0 Bowel Movements Output, Urine 600 850 725 800 700 Patient 224 lb Weight Physical Exam: Well-developed, well-nourished, no apparent distress. Alert and oriented skin without lesion, rash or jaundice. No spider telangiectasias or palmar erythema. No adenopathy. Sclera anicteric. Oropharynx normal. Neck supple without masses or thyromegaly. Heart regular rhythm. Lungs clear. Abdomen with normal bowel sounds, no distention; tender in the epigastrium especially the site of gastrostomy scar; no mass; enlarged liver, no splenic megaly. Extremities without clubbing, cyanosis or edema. Distal pulses intact bilaterally. Results Pertinent Lab Results: Laboratory Tests 08/30 08/29 08/28 0200 0640 0630 Chemistry Sodium (137 - 145 mmol/L) 138 134 L Potassium (3.5 - 5.1 mmol/L) 3.5 3.2 L Chloride (98 - 107 mmol/L) 98 95 L Carbon Dioxide (22 - 30 mmol/L) 29 28 Anion Gap (5 - 16) 11 11 BUN (9 - 20 mg/dL) 14 15 Creatinine (0.7 - 1.2 mg/dL) 0.8 0.9 Estimated GFR (>60 ml/min) > 60 > 60 BUN/Creatinine Ratio (7 - 25 %) 17.5 16.7 Phosphorus (2.5 - 4.5 mg/dL) 2.9 Magnesium (1.6 - 2.3 mg/dL) 2.0 Total Bilirubin (0.2 - 1.3 mg/dL) 0.7 Direct Bilirubin (< 0.4 mg/dL) 0.4 AST (17 - 59 U/L) 95 H ALT (21 - 72 U/L) 137 H Alkaline Phosphatase (< 127 U/L) 77 Total Protein (6.3 - 8.2 g/dL) 7.2 Albumin (3.5 - 5.0 g/dL) 4.2 Lipase (23 - 300 U/L) 71 Imaging/Other Studies: CT scan of the abdomen and pelvis unrevealing except for enlarged fatty liver, and several small calcifications in the head of the pancreas without changes of pancreatitis. Assessment/Plan Assessment/Recommendations: Abdominal pain: Despite the calcifications in the pancreas (perhaps suggesting early/mild chronic pancreatitis), this is not secondary to pancreatitis given its acuity in the hospital in its clinical and imaging characteristics. Differential diagnosis includes gastritis, peptic ulcer, esophageal ulceration, abdominal wall, hepatomegaly (unlikely given postprandial exacerbation). Transaminitis: This is not the pattern seen alcohol (AST:ALT ratio). May be secondary to fatty liver, medications, etc. Recommendations: * IV PPI, parenteral analgesia * Follow-up LFTs, CBC * EGD tomorrow; please make nothing by mouth after midnight Consult Acknowledgment - Thank you for your consult request.
[2017-08-30 23:06] VITALS: BP 150/90
--- NOTE | 2017-08-31 07:33 | PN- Housestaff ---
Cindy Villanueva 08/31/17 0732: Subjective Follow-up For: Alcohol withdrawal/impending DTs. Transaminitis likely in the setting of alcohol abuse Gastritis Subjective: Patient is seen and examined this morning, still reports some abdominal discomfort. Nausea is better. Vitals remained stable overnight. EGD done today showed Gastritis without erosion or hemorrhage with probable taco esophagitis. Review of Systems Constitutional: Denies: chills, diaphoresis, fever. EENTM: Denies: blurred vision, visual changes, eye pain. Cardiovascular: Denies: chest pain, edema, orthopena. Respiratory: Denies: cough, hemoptysis, orthopnea. Gastrointestinal: Denies: constipation. Genitourinary: Denies: discharge, frequency, hematuria. Musculoskeletal: Denies: back pain, gout. Skin: Denies: change in skin color, change in hair/nails. Neurological/Psychological: Denies: anxiety, cognitive dysfunction. Objective Last 24 Hrs of Vital Signs/I&O Vital Signs Date Time Temp Pulse Resp B/P B/P Pulse O2 O2 Flow FiO2 Mean Ox Delivery Rate 08/31 1354 97.9 84 18 136/84 92 Room Air 08/31 1028 97.9 80 20 132/80 97 Room Air 08/31 0735 97.6 90 20 140/90 95 Room Air 08/31 0718 88 140/90 08/30 2306 97.6 101 20 150/90 95 Room Air 08/30 1444 97.5 88 20 112/60 95 Room Air Intake & Output 08/31 1600 08/31 0800 08/31 0000 Intake Total 500 100 280 Output Total 450 450 Balance 500 -350 -170 Intake, IV 20 40 40 Intake, Oral 480 60 240 Number 0 0 Bowel Movements Output, Urine 450 450 Physical Exam General Appearance: Alert, Oriented X3 Skin: No Rashes, No Breakdown Cardiovascular: Regular Rate, Normal S1, Gallops Lungs: Clear to Auscultation, Normal Air Movement Abdomen: Normal Bowel Sounds, Soft, No Hepatospenomegaly Neurological: Normal Gait, Normal Speech Current Medications: Current Medications Sig/Joaquin Start time Last Medication Dose Route Stop Time Status Admin Al Hydroxide/Mg 30 ML Q6P PRN 08/25 1015 AC 08/29 Hydroxide PO 1651 Amlodipine Besylate 10 MG DAILY 08/25 1000 AC 08/31 PO 0718 Chlorhexidine 1 GM .STK-MED ONE 08/31 1026 DC Gluconate TOP 08/31 1027 Divalproex Sodium 750 MG TID 08/25 1600 AC 08/31 PO 0718 Docusate Sodium 100 MG DAILY NEEDED PRN 08/30 0300 AC PO Enoxaparin Sodium 40 MG DAILY 08/26 1000 AC 08/30 SC 0920 Folic Acid 1 MG DAILY 08/26 1000 AC 08/31 PO 0718 Hydrochlorothiazide 50 MG DAILY 08/25 1000 AC 08/31 PO 0719 Hydromorphone HCl 0.6 MG ONCE ONE 08/30 1745 DC 08/30 IV 08/30 1746 1810 Insulin Human Regular 0 TIDAC/HS 08/27 2100 AC 08/30 SC 1211 Lorazepam 0.5 MG ONCE 09/01 0000 DC PO 09/01 0001 Lorazepam 0.5 MG BID 08/31 1000 AC PO 09/07 0959 Lorazepam 0.5 MG Q6H 08/31 0000 DC PO 08/31 1801 Lorazepam 0.5 MG Q8 08/30 2200 DC 08/31 PO 09/05 1359 0559 Lorazepam 0.5 MG ONCE ONE 08/30 1800 DC PO 08/30 1801 Lorazepam 1 MG Q8 08/29 1400 DC 08/30 PO 1321 Lorazepam 2 MG Q2P PRN 08/27 1015 AC 08/27 IV 2123 Lorazepam 1 MG Q2P PRN 08/27 1015 AC 08/30 IV 1951 Losartan Potassium 50 MG DAILY 08/25 1000 AC 08/31 PO 0718 Metoprolol Succinate 50 MG DAILY 08/25 1000 AC 08/31 PO 0718 Morphine Sulfate 2 MG Q6-PRN PRN 08/25 1030 DC 08/31 IV 1032 Multivitamins 1 TAB DAILY 08/26 1000 AC 08/31 PO 0719 Nicotine 14 MG DAILY 08/25 1012 AC 08/31 TOP 0719 Omeprazole 40 MG DAILY 08/26 1000 DC 08/30 PO 0920 Ondansetron HCl 4 MG Q6P PRN 08/27 1000 AC 08/31 IV 1351 Oxycodone HCl 5 MG Q8P PRN 08/31 1445 AC PO Pantoprazole Sodium 40 MG DAILY 08/31 1000 AC 08/31 IV 0719 Senna 187 MG AT BEDTIME 08/30 0300 AC 08/30 PO 2144 Thiamine HCl 100 MG DAILY 08/25 1012 AC 08/31 PO 0719 Trazodone HCl 50 MG AT BEDTIME NEED.. 08/24 2300 AC 08/31 PO 0129 Last 24 Hrs of Lab/Moi Results Last 24 Hrs of Labs/Mics: Laboratory Tests 08/31/17 0715: Total Bilirubin 1.0, Direct Bilirubin 0.4, AST 115 H, ALT 181 H, Alkaline Phosphatase 83, Total Protein 7.4, Albumin 4.4, CBC w Diff NO MAN DIFF REQ, RBC 5.60, MCV 89.2, MCH 30.5, MCHC 34.2, RDW 12.8, MPV 8.8, Gran % 65.9, Lymphocytes % 23.2, Monocytes % 9.0, Eosinophils % 1.3, Basophils % 0.6, Absolute Granulocytes 4.5, Absolute Lymphocytes 1.6, Absolute Monocytes 0.6, Absolute Eosinophils 0.1, Absolute Basophils 0 Microbiology 08/31 1000 UPPER RESP: LAMINE Preparation - COMP YEAST Assessment/Plan Assessment: 51-year-old male with a history of alcohol use who presented for alcohol detoxification .the patient has a history of alcohol withdrawal related seizure that required ICU admission and mechanical ventilation. Serum alcohol on admission was 238. This morning patient nausea and abdominal pain has improved and he is willing to try clear liquid. He scoring low on CIWA. Abdominal ultrasound ruled acute liver pathology. Plan: #Alcohol withdrawal * We will taper down Ativan to 0.5 milligrams twice a day today, and 0.5 mg once tomorrow. * We will start back on clear liq and advanced diet as tolerated * Zofran as needed * Continue with Depakote 750 mg 3 times a day. * Psychiatry/Social work consult. * Continue with aspiration and seizure precautions #Transaminitis likely 2/2 to alcohol use * LFTs continued to remain on the higher side. * Repeat LFTs tomorrow Endoscopic evidence of gastritis: * Endoscopy done today showed evidence of Gastritis without erosion or hemorrhage with Probable taco esophagitis. * As per GI recommendations we will increase the Protonix to 40 mg twice a day, still no relief from the pain will consider adding cholestyramine 4 g twice a day. * If the biopsies came positive for fungal infection will start the patient on Diflucan 200 mg on day 1 then 100 mg daily for a total course of 14 days. Hyponatremia: * Resolved History of hypertension/T2DM: * Continue home medications, but hold Metformin * continue with NovoLog sliding scale * Accu-Cheks * He will be in diabetic diet when he can tolerate solid diet -DVT prophylaxis with subcutaneous Lovenox and Alps -Clear liquid for now -FC Problem List: 1. Alcoholic hepatitis Pain Ratin Pain Location: abdominal pain Pain Goal: Remain pain free Pain Plan: as needed percocet Tomorrow's Labs & Rationales: wilberto Ziegler MD,Barbie 08/31/17 1150: Attending MD Review Statement Attending Statement Attending MD Statement: examined this patient, discuss w/resident/PA/ANIMAL GENETICIST, agreed w/resident/PA/ANIMAL GENETICIST, reviewed EMR data (avail), discussed with nursing, discussed with case mgmt, reviewed images, amended to note Attending Assessment/Plan: Patient seen and examined, came back from endoscopy. That shows gastritis. Vital Signs Date Time Temp Pulse Resp B/P B/P Pulse O2 O2 Flow FiO2 Mean Ox Delivery Rate 08/31 1028 97.9 80 20 132/80 97 Room Air 08/31 0735 97.6 90 20 140/90 95 Room Air 08/31 0718 88 140/90 08/30 2306 97.6 101 20 150/90 95 Room Air 08/30 1444 97.5 88 20 112/60 95 Room Air on exam; aox3, nad. cv; s1,s2, rrr resp; clear abd; soft, bs+, tender in epigastrium. ext; no edema Laboratory Tests 08/31 0715 Chemistry Total Bilirubin (0.2 - 1.3 mg/dL) 1.0 Direct Bilirubin (< 0.4 mg/dL) 0.4 AST (17 - 59 U/L) 115 H ALT (21 - 72 U/L) 181 H Alkaline Phosphatase (< 127 U/L) 83 Total Protein (6.3 - 8.2 g/dL) 7.4 Albumin (3.5 - 5.0 g/dL) 4.4 Hematology CBC w Diff NO MAN DIFF REQ WBC (4.8 - 10.8 /CUMM) 6.9 RBC (4.70 - 6.10 /CUMM) 5.60 Hgb (14.0 - 18.0 G/DL) 17.1 Hct (42 - 52 %) 50.0 MCV (80.0 - 94.0 FL) 89.2 MCH (27.0 - 31.0 PG) 30.5 MCHC (33.0 - 37.0 G/DL) 34.2 RDW (11.5 - 14.5 %) 12.8 Plt Count (130 - 400 /CUMM) 166 MPV (7.4 - 10.4 FL) 8.8 Gran % (42.2 - 75.2 %) 65.9 Lymphocytes % (20.5 - 51.1 %) 23.2 Monocytes % (1.7 - 9.3 %) 9.0 Eosinophils % (0 - 5 %) 1.3 Basophils % (0.0 - 2.0 %) 0.6 Absolute Granulocytes (1.4 - 6.5 /CUMM) 4.5 Absolute Lymphocytes (1.2 - 3.4 /CUMM) 1.6 Absolute Monocytes (0.10 - 0.60 /CUMM) 0.6 Absolute Eosinophils (0.0 - 0.7 /CUMM) 0.1 Absolute Basophils (0.0 - 0.2 /CUMM) 0 A/P; 51 y/o M with pmh sig for alcohol overuse, alcohol withdrawal seizures including prolonged hospitalization requiring ICU admission in 2016, pancreatitis, hypertension, T2DM, and bipolar disorder, is admitted with acute alcohol intoxication. Patient continues to complain of epigastric abdominal pain. CT abdomen and pelvis showed chronic pancreatitis. Patient underwent endoscopy today which shows gastritis. Will increase the PPI to twice a day. We'll follow-up on the biopsy results. As per GI, if brushings or biopsies show any evidence of Taco then patient should be treated with Diflucan. Patient be started on full liquid diet and then advance as tolerated. Please further taper the Ativan to 0.5 mg by mouth twice a day today and then 0.5 mg 1 dose tomorrow. Please advanced diet as he can tolerate. Will stop IV morphien and try to control pain with low dose oxycodone 5 mg BID prn. If patient continues to do well and tolerated diet than he can be a possible discharge tomorrow. Continue the rest of the treatment and patient on Lovenox for DVT prophylaxis.
[2017-08-31 07:35] VITALS: BP 140/90
[2017-08-31 08:42] LABS: ABSOLUTE BASOPHIL COUNT 0 /CUMM (0.0-0.2); ABSOLUTE EOSINOPHIL COUNT 0.1 /CUMM (0.0-0.7); ABSOLUTE GRANULOCYTE CT 4.5 /CUMM (1.4-6.5); ABSOLUTE LYMPH COUNT 1.6 /CUMM (1.2-3.4); ABSOLUTE MONOCYTE COUNT 0.6 /CUMM (0.10-0.60); BASOPHIL % 0.6 % (0.0-2.0); EOSINOPHIL % 1.3 % (0-5); GRANULOCYTE % 65.9 % (42.2-75.2); MEAN CORPUSCULAR HGB 30.5 PG (27.0-31.0); MEAN CORPUSCULAR HGB CONC 34.2 G/DL (33.0-37.0); MEAN CORPUSCULAR VOLUME 89.2 FL (80.0-94.0); MEAN PLATELET VOLUME 8.8 FL (7.4-10.4); PLATELET COUNT 166 /CUMM (130-400); RBC DISTRIBUTION WIDTH 12.8 % (11.5-14.5); WHITE BLOOD CELL COUNT 6.9 /CUMM (4.8-10.8)
--- NOTE | 2017-08-31 10:01 | Proc Note Endoscopy ---
Endoscopy Procedure Medical History: unchanged Mental Status: alert/oriented Heart/Lung Eval Prior to Sedation: within normal limits Candidate for Sedation? Yes Procedure Date: 08/31/17 Procedure Type: EGD w/biopsy Refinery Operator Helper: MD Vines Deborah E. ASA Classification: III Indications: Epigastric pain Instrument: diagnostic gastroscope Meds Received: MAC Patient's Tolerance: good Complications: none Extent Reached: second part of duodenum Procedure: Note: Informed consent was obtained prior to procedure. Risks and benefits of procedure were discussed with patient. Potential complications discussed included perforation, bleeding, abdominal pain, and adverse reaction to medications. It was explained that iany or all of these complications could result in the need for extended hospitalization, emergency surgery, transfusion of packed red blood cells (with the risk of HIV or hepatitis virus), intubation with mechanical ventilation, and possible need for antibiotics. It was further explained that an existing tumor polyp or mucosal abnormality might not be identified at the time of the procedure thus resulting in a missed opportunity for early diagnosis and treatment of a gastrointestinal malignancy or disease with possible interval development of a gastrointestinal cancer or other disease with possible worsening of clinical condition in the interval between endoscopies. It was also discussed that complications are not limited to those listed above. Possible alternatives to endoscopic treatment or evaluation were discussed. All questions were answered. Continuous EKG and blood pressure monitors were attached. Supplemental oxygen was provided with O2 Sat monitoring. Patient was placed in the left lateral decubitus position. A surgical timeout was performed. All persons in the room were identified. All concerns were expressed and answered. A bite block was placed in the mouth and sedation was administered by anesthesia and titrated to comfort prior to starting the procedure. The Olympus upper endoscope was advanced under direct vision to the level of the third portion of the duodenum. Esophagus: The esophagus had a normal mucosal vascular pattern throughout its entirety. The GE junction was identified and was normal. The Z line was located at 40 cm from the incisors and was nondisplaced. There were scattered tenacious white plaques suggestive of taco. A brushing was obtained to rule out esophageal candidiasis. In places these candidial plaques had the appearance of abscess ulcerations. Biopsies were obtained from these in the distal esophagus. There also appeared to be a faint suggestion of esophageal varices, however, this was not definite. Stomach: The stomach had a moderate volume of bilious material admixed with contrast from a CT scan done 24 hours previously. This was completely suctioned and washed. The gastric mucosa was edematous and erythematous. There were no underlying ulcers or erosions noted. Retroflexed view of the cardiofundic region revealed a normal mucosal and vascular pattern. There were normal rugae and normal distensibility. The pylorus was patent and easily intubated. Biopsies were obtained from the antrum, angularis, gastric body and lesser curvature to rule out H. Pylori. Duodenum: The duodenum was fully examined from bulb down to the third portion. There was a normal mucosal vascular pattern throughout. With the endoscope in the forward-viewing position, it was slowly withdrawn and all areas were re-inspected and findings are as described previously. Patient tolerated the procedure well. EBL: Minimal Specimens Removed: 1. antrum, angularis, gastric body and lesser curvature to rule out H. Pylori. 2. distal esophagus 3. esophageal brushing to r/o esophageal candidiasis Findings: 1. Bile and contrast retained within gastric lumen 2. Gastritis without erosion or hemorrhage 3. Probable taco esophagitis Impression: 1. Bile and contrast retained within gastric lumen. Patient may have bile gastritis as well as bile acid reflux. 2. Gastritis without erosion or hemorrhage 3. Probable taco esophagitis It is not clear that current findings on EGD explain patient's epigastric pain. Patient does have calcific pancreatitis. However, pain may be related to gastroparesis. Recommendations: 1. Await pathology 2. Consider increase in Protonix to twice a day. If no relief with this may consider adding Questran (cholestyramine) 4 g twice a day. 3. If brushings or biopsies positive for fungal elements would treat with Diflucan 200 mg on day 1 then 100 mg daily for a total course of 14 days. 4. If no relief with above would consider possible gastric emptying study and/ or HIDA scan with CCK
[2017-08-31 10:28] VITALS: BP 132/80
[2017-08-31 13:54] VITALS: BP 136/84
[2017-08-31] MEDS ORDERED: PROTONIX40 M3 PO (15:36)
--- NOTE | 2017-08-31 15:38 | Patient Discharge Instructions ---
Discharge Instructions General Discharge Information You were seen/treated for: Alcohol withdrawal/impending DTs. Transaminitis Gastritis Special Instructions: 1. Please follow-up with your PCP within 1-2 weeks after discharge. 2. Please follow-up with event security officer as an outpatient. Diet Recommended Diet: Heart Healthy Activity Activity Self Limited: Yes Acute Coronary Syndrome Inclusion Criteria At DC or during hospital stay patient has or had the following: ACS DIAGNOSIS No Discharge Core Measures Meds if any: Prescribed or Continued at Discharge Meds if any: NOT Prescribed or Continued at Discharge Congestive Heart Failure Inclusion Criteria At DC or during hospital stay patient has or had the following: CHF DIAGNOSIS No Discharge Core Measures Meds if any: Prescribed or Continued at Discharge Meds if any: NOT Prescribed or Continued at Discharge Cerebrovascular accident Inclusion Criteria At DC or during hospital stay patient has or had the following: CVA/TIA Diagnosis No Discharge Core Measures Meds if any: Prescribed or Continued at Discharge Meds if any: NOT Prescribed or Continued at Discharge Venous thromboembolism Inclusion Criteria VTE Diagnosis No VTE Type NONE VTE Confirmed by (Test) NONE Discharge Core Measures - Per Current guidelines, there needs to be overlap - treatment for the first 5 days of Warfarin therapy. - If discharged on Warfarin prior to 5 days of - overlap therapy, the patient will need to be - assessed for post discharge needs including - *Post discharge parental anticoagulation - *Warfarin and/or parental anticoagulation education - *Follow up date to check INR post discharge At least 5 days overlap therapy as Inpatient No Meds if any: Prescribed or Continued at Discharge Note: Overlap Therapy is Warfarin and Anticoagulant Meds if any: NOT Prescribed or Continued at Discharge
[2017-08-31 16:00] VITALS: BP 136/84
[2017-08-31 21:59] VITALS: BP 126/80
--- NOTE | 2017-09-01 05:55 | PN- Housestaff ---
Avinash HERNÁNDEZ,Diaz 09/01/17 0535: Subjective Follow-up For: EtOH withdrawal Probable Candidal Esophagitis Subjective: Patient seen and examined. He is seen lying flat in bed resting comfortably. He appears to be in no acute distress. He reports not doing well with his dinner last evening but did better with breakfast. he still has some severe abdominal pain but admits that it is tolerable. He is requesting regular diet for lunch. He otherwise denies any fever, chills, chest pain, shortness of breath, nausea, vomiting, diarrhea. Review of Systems Constitutional: Reports: see HPI. Objective Last 24 Hrs of Vital Signs/I&O Vital Signs Date Time Temp Pulse Resp B/P B/P Pulse O2 O2 Flow FiO2 Mean Ox Delivery Rate 09/01 0937 128/78 09/01 0617 97.7 76 20 120/74 93 08/31 2159 97.9 90 20 126/80 93 Room Air Intake & Output 09/01 1600 09/01 0800 09/01 0000 Intake Total 240 480 Output Total Balance 240 480 Intake, Oral 240 480 Physical Exam General Appearance: Alert, Oriented X3, Cooperative, No Acute Distress Other Physical Findings: GEN: well developed, well nourished middle aged man in no acute distress HEENT: NCAT, PERRL, EOMI, anicteric sclera, MMM CARD: Normal s1/s2 w/o m/g/r; RRR PULM: CTA bilaterally ABD: Soft, NT, ND, BS + NEURO: Awake and alert, CN II-XII grossly intact EXT: normal pulses, no edema Current Medications: Current Medications Sig/Joaquin Start time Last Medication Dose Route Stop Time Status Admin Al Hydroxide/Mg 30 ML Q6P PRN 08/25 1015 DCD 08/29 Hydroxide PO 1651 Amlodipine Besylate 10 MG DAILY 08/25 1000 DCD 09/01 PO 0937 Divalproex Sodium 750 MG TID 08/25 1600 DCD 09/01 PO 0935 Docusate Sodium 100 MG DAILY NEEDED PRN 08/30 0300 DCD PO Enoxaparin Sodium 40 MG DAILY 08/26 1000 DCD 09/01 SC 0937 Folic Acid 1 MG DAILY 08/26 1000 DCD 09/01 PO 0937 Hydrochlorothiazide 50 MG DAILY 08/25 1000 DCD 09/01 PO 0935 Insulin Human Regular 2 UNITS .STK-MED ONE 08/31 1654 DC IV 08/31 1655 Insulin Human Regular 0 TIDAC/HS 08/27 2100 DCD 08/31 SC 1656 Lorazepam 0.5 MG ONCE ONE 09/01 1000 DC 09/01 PO 09/01 1001 0935 Lorazepam 0.5 MG ONCE 09/01 0000 DC PO 09/01 0001 Lorazepam 0.5 MG BID 08/31 1000 DC 08/31 PO 08/31 2300 2108 Lorazepam 2 MG Q2P PRN 08/27 1015 DCD 08/27 IV 2123 Lorazepam 1 MG Q2P PRN 08/27 1015 DCD 08/30 IV 1951 Losartan Potassium 50 MG DAILY 08/25 1000 DCD 09/01 PO 0937 Metoprolol Succinate 50 MG DAILY 08/25 1000 DCD 09/01 PO 0938 Multivitamins 1 TAB DAILY 08/26 1000 DCD 09/01 PO 0938 Nicotine 14 MG DAILY 08/25 1012 DCD 09/01 TOP 0936 Omeprazole 40 MG BID 08/31 1445 DCD 09/01 PO 0935 Ondansetron HCl 4 MG Q6P PRN 08/27 1000 DCD 08/31 IV 1351 Oxycodone HCl 5 MG BID PRN 08/31 1545 DCD 08/31 PO 2109 Patient Medication 1 ED ONE ONE 09/01 1130 DC 09/01 Teaching ED 09/01 1131 1127 Senna 187 MG AT BEDTIME 08/30 0300 DCD 08/31 PO 2108 Thiamine HCl 100 MG DAILY 08/25 1012 DCD 09/01 PO 0937 Trazodone HCl 50 MG AT BEDTIME NEED.. 08/24 2300 DCD 08/31 PO 0129 Last 24 Hrs of Lab/Moi Results Last 24 Hrs of Labs/Mics: Laboratory Tests 09/01/17 0640: Anion Gap 12, Estimated GFR > 60, BUN/Creatinine Ratio 13.0, Total Bilirubin 0.9 , Direct Bilirubin 0.3, AST 81 H, ALT 156 H, Alkaline Phosphatase 71, Total Protein 6.6, Albumin 3.9 Assessment/Plan Assessment: 51 year old man with multiple medical problems significant for alcohol depedence with withdrawal seizures requiring ICU admission in the past admitted for alcohol detox with new abdominal pain and nausea concerning for alcohol pancreatitis. Patient completed his ativan taper uneventfully today. This morning he complained of severe abdominal pain but was hungry and insisted on advancing his diet to a full regular diet which he tolerated well. LAMINE prep of the esophageal scrapping demonstrated evidence of yeast concerning for esophageal candidiasis for which he was prescribed a two week course of diflucan. He is continued on omeprazole on discharge and is instructed to follow up with his gas meter prover for further evaluation. He is also to establish care with the [facility]. Problem List: -EtOH withdrawal / detox / dependence, on ativan taper -Unwitnessed seizure at home -Transaminitis -Possible Candidal Esophagitis -Calcific Pancreatitis -Non-insulin dependent diabetes mellitus -Bipolar disorder, on depakote/trazodone -Hypertension Plan -Discharge to home -Aspiration / Seizure precautions -Accuchecks TIDAC/HS with Novolog SSI -CIWA with Ativan PRN -Ativan 0.5 mg PO x1 today, then stop -Thiamine / Folate / Multivitamin -Omeprazole 40 mg PO BID -Diflucan two week course on discharge -Consider Cholestyramine if further abdominal pain -Zofran PRN for nausea -Continue Depakote and Trazodone -Continue Metoprolol, Losartan, Amlodipine -Consults with gastroenterology, psychiatry, and social work -Follow up EGD biopsy pathology, start Fluconazole therapy if positive -Monitor LFTs -Pain control with Oxycodone -Clear Liquid Diet -DVT PPx: Lovenox -FULL CODE Problem List: 1. Alcohol dependency 2. Alcohol withdrawal Pain Ratin Pain Location: Abdomen Pain Goal: Pain 4 or less Pain Plan: See assessment Tomorrow's Labs & Rationales: None Toney HERNÁNDEZBarbie 09/01/17 1232: Attending MD Review Statement Attending Statement Attending MD Statement: examined this patient, discuss w/resident/PA/INFANT TODDLER LEAD TEACHER, agreed w/resident/PA/INFANT TODDLER LEAD TEACHER, reviewed EMR data (avail), discussed with nursing, discussed with case mgmt, reviewed images, amended to note Attending Assessment/Plan: Patient seen and examined, overall doing better. Abdominal pain has improved. Endoscopy showed gastritis and possibility off taco. LAMINE prep shows few budding yeast. Patient will need Diflucan as recommended by GI. Otherwise he is not requiring pain medications. He has completed the Ativan taper. Patient has been kept on twice a day PPI. He is medically stable for discharge home today. We'll keep him on a twice a day PPI, the rest of his home medications as well as add Diflucan as recommended by GI. Patient will be discharged home today and will have an outpatient IOP follow-up for alcohol use disorder.
[2017-09-01 06:17] VITALS: BP 120/74
[2017-09-01 09:37] VITALS: BP 128/78
[2017-09-01] MEDS ORDERED: FOLIC ACID1 M1 PO (11:27)
[2017-09-01] MEDS ORDERED: VITAMIN B-1100 MG PO (11:27)
[2017-09-01] MEDS ORDERED: ONE DAILY MULT1 EAC2 PO (11:27)
[2017-09-01] MEDS ORDERED: DIFLUCAN200 M1 PO ×2 (13:12→13:20)
[2017-09-01] MEDS ORDERED: PROTONIX40 M3 PO (13:13)
== END 2017-09-01 13:45 | DRG 53 ==
LOC: ERH 18:31 → 2NB 08-25 09:13 → ERHI 08-25 09:13 → ENRESERV 08-26 17:04 → ENTRNSPT 08-26 17:44 → EDTRNSPT 08-26 17:52 → EDTRNSPTSTS 08-26 17:52 → 2NB 08-26 17:57 → CMPTRNSPT 08-26 18:09 → 2NB 09-01 13:45
PROVIDERS: Internal Medicine Hematology & Oncology; Physician Assistant Medical
PROC: 0DB38ZX Excision of Lower Esophagus, Via Natural or Artificial Opening Endoscopic, Diagnostic (ICD-10-PCS; principal; 2017-08-31)
PROC: 0DB68ZX Excision of Stomach, Via Natural or Artificial Opening Endoscopic, Diagnostic (ICD-10-PCS; 2017-08-31)
DX: G40.509 Epileptic seizures related to external causes, not intractable, without status epilepticus (principal); F10.239 Alcohol dependence with withdrawal, unspecified; F10.229 Alcohol dependence with intoxication, unspecified; Y90.7 Blood alcohol level of 200-239 mg/100 ml; R74.0 Nonspecific elevation of levels of transaminase and lactic acid dehydrogenase [LDH]; I10 Essential (primary) hypertension; E11.8 Type 2 diabetes mellitus with unspecified complications; Z79.84 Long term (current) use of oral hypoglycemic drugs; F31.9 Bipolar disorder, unspecified; E83.42 Hypomagnesemia; E87.1 Hypo-osmolality and hyponatremia; E86.0 Dehydration; K29.20 Alcoholic gastritis without bleeding; B37.81 Candidal esophagitis; F41.9 Anxiety disorder, unspecified; F19.10 Other psychoactive substance abuse, uncomplicated; F17.210 Nicotine dependence, cigarettes, uncomplicated; F14.10 Cocaine abuse, uncomplicated
CPT/HCPCS: 2NBP; ERO; 36415; 36592; 74176; 80307; 82436; 93005; 93010; 96374; 96375; 96376; 99232; 99291; G0480; J1170; J1650; J1815; J2405; J3101; J3250; J3490; J7120